=== PATIENT | male | born 1960 | race Caucasian/White ===

== ENCOUNTER → 2017-08-18 11:22 | Outpatient (CLI) | payer MEDICARE, MEDICAID, SELFPAY ==
[2017-08-18 14:52] LABS: Chol/HDL Ratio 9.7 (1-3.5); Cholesterol 224 mg/dL (140-200); HDL Cholesterol 23 mg/dL (27-67)
[2017-08-18 15:17] LABS: Triglycerides 642 mg/dL (30-200)
[2017-08-19 19:10] LABS: Prolactin 17.8 ng/mL (4.0-15.2)
== END ==
PROVIDERS: PCP Internal Medicine Adolescent Medicine; Visit Provider Nurse Practitioner Psychiatric/Mental Health
DX: F39 Unspecified mood [affective] disorder (principal); Z79.899 Other long term (current) drug therapy
CPT/HCPCS: 36415; 80061; 83036; 84146

== ENCOUNTER → 2017-09-06 14:56 | Outpatient (CLI) | payer MEDICARE, MEDICAID, SELFPAY ==
[2017-09-06 16:49] LABS: Amphetamine/Metha Screen,Urine Negative ng/mL (<1000); Barbiturates Screen,Urine Negative ng/mL (<200); Benzodiazepines Screen,Urine Negative ng/mL (200); Cannabinoid Screen,Urine Negative ng/mL (<50); Cocaine Screen,Urine Negative ng/g (<300); Methadone Screen,Urine Negative ng/mL (<300); Opiate Screen,Urine Positive ng/mL (<300); Phencyclidine Screen,Urine Negative ng/mL (<25)
[2017-09-12 11:18] LABS: Codeine Negative (Cutoff=100); Hydrocodone Positive (.); Hydromorphone Positive (.); Morphine Negative (Cutoff=100)
[2017-09-14 11:50] LABS: Opiates Positive (.)
== END ==
PROVIDERS: Visit Provider Anesthesiology
DX: Z79.899 Other long term (current) drug therapy (principal)
CPT/HCPCS: 80305; 80361; 80365; G0480

== ENCOUNTER → 2017-09-25 08:54 | Outpatient (POV) | payer MEDICARE, MEDICAID, SELFPAY ==
[2017-09-25 09:08] VITALS: BP 150/88; PULSE 76; RESP 18; O2SAT 95; BMI 32.4
--- NOTE | 2017-09-25 09:21 | HMH.PAINSOAP ---
[facility] Pain Management SOAP Note Subjective:: This patient is a pleasant 56-year-old white male who we are treating for low back pain with lumbar radiculopathy symptoms. He is currently being managed with [place] 5 mg 3 times a day. He is also taking ibuprofen in addition to this. He is doing well with his pain medication. His back is hurting today however overall he does get good relief. His [place] and urine drug screen are all appropriate. Kaspar #[id number]. We will refill his [place] 5 mg 3 times a day. We will give him 2 months worth of prescriptions. Objective:: Alert and oriented ?3 in no acute distress. Patient does have an antalgic gait. Motor strength of the lower extremities is 5/5. There is no gross sensory deficit. Assessment:: Degenerative disc disease of lumbar spine with lumbar radiculopathy symptoms. Plan:: We will refill his [place] 5 mg's 1 tablet 3 times a day. He is to continue taking ibuprofen in addition to this. I have talked to him about injections. He is on a limited income and cannot afford injections at this time. We will give him 2 months worth of prescriptions. We will see him back in 3 months. He will sisal picker his third month here in the pain clinic.
== END ==
PROVIDERS: Family Provider Internal Medicine Adolescent Medicine; PCP Internal Medicine Adolescent Medicine; Visit Provider Anesthesiology
DX: M54.16 Radiculopathy, lumbar region (principal)
CPT/HCPCS: 99212

== ENCOUNTER → 2017-12-05 09:03 | Outpatient (POV) | payer MEDICARE, MEDICAID, SELFPAY ==
[2017-12-05 09:15] VITALS: BP 137/93; PULSE 72; RESP 18; BMI 32.7
--- NOTE | 2017-12-05 09:28 | P.CONS_ITS ---
[facility] Pain Management SOAP Note Subjective:: Patient is a 57-year-old white male who presents today for medication refills. Patient is currently being medically managed for low back pain secondary to degenerative disc disease of lumbar spine with lumbar radiculopathy symptoms. Patient is currently being managed with [place] 5 mg 1 p.o. 3 times daily. Patient states that it takes the edge off however he does not take all his pain away. Patient has had hip surgery in the past. Patient and I discussed potentially a neurostimulator he is uninterested in this. Patient states he has had injections in the past but he cannot afford them and he does not want them because they do not work anyway. Patient's ABELARDO #[id number] reviewed and appropriate. Patient will be going for UDS today. ROS General: no recent weight change, no fever, no sleep disturbances Respiratory: no cough, no shortness of air, no recurring pulmonary infections Cardiovascular/Peripheral Vascular: No chest pain, No palpitations, no edema, no shortness of breath. Gastrointestinal: no incontinence, normal bowel movements reported Genitourinary: no incontinence Musculoskeletal: Low back and hip pain Psychiatric: normal mood/ affect Neurological: [denies weakness in extremities], [denies balance issues] Objective:: Physical Exam General: Alert and oriented x3, no acute distress, pleasant and cooperative, Lungs: Resps E/U, Symmetrical chest expansion Eyes: PERRL Musculoskeletal: Flexion and extension of lumbar spine somewhat guarded secondary to pain, deep tendon reflexes normal, strength in upper and lower extremities [5/5], slightly antalgic gait noted Neurological: speech clear, 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 3 times daily and give him 2 months worth of prescriptions. He can slat pickler the third prescription in the interim. We will see him back in [address] Carrasco has reviewed this chart and agrees with this plan of care. We will review his UDS and continue to monitor compliance. Patient has been prescribed a controlled substance after being counseled on the medication, medication safety, and possible side effects. ABELARDO report has been obtained and reviewed prior to prescription and found to be appropriate. Opioid contract was reviewed and signed by the patient, and that they have agreed to all of the terms set forth by our compliance program. This note was dictated using voice recognition software and may contain errors or omissions
[2017-12-05 15:31] LABS: Amphetamine/Metha Screen,Urine Negative ng/mL (<1000); Barbiturates Screen,Urine Negative ng/mL (<200); Benzodiazepines Screen,Urine Negative ng/mL (200); Cannabinoid Screen,Urine Negative ng/mL (<50); Cocaine Screen,Urine Negative ng/g (<300); Methadone Screen,Urine Negative ng/mL (<300); Opiate Screen,Urine Positive ng/mL (<300); Phencyclidine Screen,Urine Negative ng/mL (<25)
[2017-12-15 09:16] LABS: Codeine Negative (Cutoff=100); Hydrocodone Positive (.); Hydromorphone Positive (.); Morphine Negative (Cutoff=100)
[2017-12-15 10:27] LABS: Opiates Positive (.)
== END ==
PROVIDERS: Family Provider Internal Medicine Adolescent Medicine; PCP Internal Medicine Adolescent Medicine; Visit Provider Clinical Nurse Specialist Family Health
DX: M54.16 Radiculopathy, lumbar region (principal); Z79.891 Long term (current) use of opiate analgesic
CPT/HCPCS: 80305; 80361; 80365; 99212; G0480

== ENCOUNTER → 2018-03-01 08:59 | Outpatient (CLI) | payer MEDICARE, MEDICAID, SELFPAY ==
[2018-03-01 09:04] LABS: Microscopic, Urine URINE MICROSCOPIC (MICROSCOPIC)
[2018-03-01 09:19] LABS: Appearance,Urine CLEAR (Clear); Bilirubin,Urine Negative (Negative); Blood, Urine Negative (Negative); Color,Urine YELLOW (Yellow); Glucose,Urine (UA) Negative (Negative); Ketones,Urine Negative (Negative); Leukocyte Esterase,Urine Negative (Negative); Nitrate,Urine Negative (Negative); PH,Urine 6.5 (5.0-8.5); Protein,Urine Negative (Negative); Urobilinogen,Urine 0.2 EU/dl (0.2)
[2018-03-01 09:23] LABS: Basophils # 0.1 K/mm3 (0-0.2); Basophils % 1.4 % (0.1-2.0); Eosinophils # 0.4 K/mm3 (0.0-0.4); Eosinophils % 5.9 % (0.1-12.0); Hemoglobin 14.4 g/dL (14.1-18.0); Lymphocytes # 2.2 K/mm3 (0.7-4.5); Lymphocytes % 33.7 K/mm3 (10-50); Mean Corpuscular HGB Conc 34.4 g/dL (31.8-35.4); Mean Corpuscular Hemoglobin 29.8 pg (27.0-31.2); Mean Corpuscular Volume 86.7 fl (80-94); Mean Platelet Volume 7.3 fl (7.4-10.4); Monocytes # 0.4 K/mm3 (0.1-1.0); Neutrophils # 3.4 K/mm3 (1.8-7.8); Neutrophils % 53.1 % (37.0-80.0); Platelet Count 280 K/mm3 (142-424); Red Blood Count 4.84 M/mm3 (4.60-6.20); Red Cell Distribution Width 13.7 % (11.5-17.5); White Blood Count 6.5 K/mm3 (4.8-10.8)
[2018-03-01 09:38] LABS: Bacteria,Urine Trace /lpf; RBC,Urine Occasional #/hpf (0-3); Squamous Epithelial Cell,Urine Occasional #/hpf (0-5)
[2018-03-01 11:30] LABS: Alanine Aminotransferase 110 U/L (12-78); Albumin Level 3.9 gm/dL (3.4-5.0); Albumin/Globulin Ratio 1.2 (1.1-1.8); Alkaline Phosphatase 49 U/L (46-116); Amylase 77 U/L (25-125); Anion Gap 10.1 mEq/L (5-15); Bilirubin,Total 0.5 mg/dL (0.2-1.0); Blood Urea Nitrogen 21 mg/dL (7-18); Calcium 9.1 mg/dL (8.5-10.1); Carbon Dioxide 31 mmol/L (21.0-32.0); Chloride 102 mmol/L (98-107); Creatinine,Serum 1.07 mg/dL (0.70-1.30); Estimated Glomerular Filt Rate 71 ml/min (>60); GFR (African American) 87 ML/MIN (>60); Globulin 3.3 gm/dl (1.3-3.2); Glucose 114 mg/dL (74-106); Lipase 314 u/L (73-393); Sodium 139 mmol/L (136-145); Total Protein,Serum 7.2 gm/dL (6.4-8.2)
--- NOTE | 2018-03-01 12:16 | CT_ITS ---
CT abdomen pelvis wo/w con CLINICAL INDICATION: Left lower quadrant pain, dark stool noted ITS.REASON: LUQ PAIN ORDERING PHYSICIAN: Nando Reddy MD PATIENT AGE: 57 years COMPARISON: None TECHNIQUE: Axial images obtained without and with contrast. Sagittal and coronal reformats. All CT scans at the facility use one or more dose reduction, viz: automated exposure control, ma/kV adjustment per patient size (including targeted exams where dose is matched to indication, i.e. head), or iterative reconstruction technique. PROCEDURE: Oral Contrast: Redicat IV Contrast: 75 mL's of Isovue-370. FINDINGS: Lung bases are clear. There is diffuse fatty liver. No focal liver lesion is evident. The spleen is unremarkable. Adrenal glands and pancreas are unremarkable. There is a small hyperdensity noted within the gallbladder posteriorly may be due to small stone and may be confirmed with ultrasound. No renal or ureteral calculi. No hydronephrosis. There is a 16 mm isodensity along the lower pole the right kidney consistent with renal cyst. There is a small umbilical hernia containing fat. No evidence of appendicitis or diverticulitis. There is diverticulosis of the descending colon. No intestinal obstruction or free air. There is mild fusiform dilatation of the midabdominal aorta in the infrarenal region at 3 cm not significant change. No pelvic mass abnormal fluid collection or focal inflammatory change of the pelvis. Artifact is present from right hip prosthesis. There are degenerative changes in the lumbar spine. There are subcortical sclerotic and cystic changes of the left femoral head suggesting avascular necrosis. IMPRESSION: 1. No acute abdominal or pelvic findings. 2. 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 3. Small focal hernia containing fat. 4. Subcortical sclerotic and cystic changes of the left femoral head suspicious for avascular necrosis.
[2018-03-01 12:38] LABS: Aspartate Amino Transferase 54 U/L (15-37); Potassium 4.1 mmoL/L (3.5-5.1)
[2018-03-02 14:33] LABS: Occult Blood,Stool Positive (Negative)
== END ==
PROVIDERS: Nurse Practitioner Family; Family Provider Internal Medicine Adolescent Medicine; PCP Internal Medicine Adolescent Medicine; Visit Provider Internal Medicine Adolescent Medicine
DX: R10.12 Left upper quadrant pain (principal); R10.32 Left lower quadrant pain; R19.5 Other fecal abnormalities; Z79.1 Long term (current) use of non-steroidal anti-inflammatories (NSAID)
CPT/HCPCS: 36415; 74170; 74178; 80053; 81001; 82150; 82272; 83690; 85025; G0328; Q9967

== ENCOUNTER → 2018-03-05 08:00 | Outpatient (POV) | payer MEDICARE, MEDICAID, SELFPAY ==
[2018-03-05 08:49] VITALS: BP 158/100; PULSE 71; RESP 18; O2SAT 97; BMI 31.9
--- NOTE | 2018-03-05 08:56 | HMH.PAINSOAP ---
[facility] Pain Management SOAP Note Subjective:: Patient is a pleasant 57-year-old white male who presents today for medication refills. Patient's currently being medically managed for lower back pain secondary to degenerative disc disease of the lumbar spine with lumbar radiculopathy symptoms. Patient also has right hip pain. Patient had a replacement done by Dr. Henry. Patient is currently on [place] 5 mg 1 p.o. 3 times daily. Patient states that he has had injections in the past but he cannot afford them and they do not work he is uninterested in this. Patient and I did talk about neuro stimulation he is uninterested at this time he states he is under a lot of stress and does not have the time to do this. Patient has not been on any gabapentin before. Patient states his medication only helps him about 5%. Patient's ABELARDO #[id number] reviewed. Patient has been filling from multiple pharmacies. We will continue to monitor this patient needs to be filling from one pharmacy. Patient rates his pain today an 8 out of 10 he denies any side effects from his medication. ROS General: no recent weight change, no fever, no sleep disturbances Respiratory: no cough, no shortness of air, no recurring pulmonary infections Cardiovascular/Peripheral Vascular: No chest pain, No palpitations, no edema, no shortness of breath. Gastrointestinal: no incontinence, normal bowel movements reported Genitourinary: no incontinence Musculoskeletal: Back pain, leg pain, hip pain Psychiatric: normal mood/ affect Neurological: [denies weakness in extremities], [denies balance issues] Objective:: Physical Exam General: Alert and oriented x3, no acute distress, pleasant and cooperative, [on room air] Lungs: Resps E/U, Symmetrical chest expansion, Eyes: PERRL Musculoskeletal: Flexion and extension of lumbar spine somewhat guarded secondary to pain, deep tendon reflexes normal, strength in upper and lower extremities [5/5], [abnormal gait noted] Neurological: speech clear, loader machine 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 3 times daily and give him 2 months worth of prescriptions. He can roll picker the third prescription in the interim. We will follow up with him in 3 months. We will also add gabapentin 300 mg 1 tab p.o. nightly. Patient has been instructed to call the office if he has any issues prior to his next appointment. Patient's UDS has been appropriate in the past. Abelardo reviewed. Patient has been notified that he can only use one pharmacy. Patient has been prescribed a controlled substance after being counseled on the medication, medication safety, and possible side effects. ABELARDO report has been obtained and reviewed prior to prescription and found to be appropriate. Opioid contract was reviewed and signed by the patient, and that they have agreed to all of the terms set forth by our compliance program. This note was dictated using voice recognition software and may contain errors or omissions
--- NOTE | 2018-03-05 08:59 | P.CONS_ITS ---
[facility] Pain Management SOAP Note Subjective:: Patient is a pleasant 57-year-old white male who presents today for medication refills. Patient's currently being medically managed for lower back pain secondary to degenerative disc disease of the lumbar spine with lumbar radiculopathy symptoms. Patient also has right hip pain. Patient had a replac ement done by Dr. Henry. Patient is currently on [place] 5 mg 1 p.o. 3 times daily. Patient states that he has had injections in the past but he cannot afford them and they do not work he is uninterested in this. Patient and I did talk about neuro stimulation he is uninterested at this time he states he is under a lot of stress and does not have the time to do this. Patient has not been on any gabapentin before. Patient states his medication only helps him about 5%. Patient's ABELARDO #[id number] reviewed. Patient has been filling from multiple pharmacies. We will continue to monitor this patient needs to be filling from one pharmacy. Patient rates his pain today an 8 out of 10 he denies any side effects from his medication. ROS General: no recent weight change, no fever, no sleep disturbances Respiratory: no cough, no shortness of air, no recurring pulmonary infections Cardiovascular/Peripheral Vascular: No chest pain, No palpitations, no edema, no shortness of breath. Gastrointestinal: no incontinence, normal bowel movements reported Genitourinary: no incontinence Musculoskeletal: Back pain, leg pain, hip pain Psychiatric: normal mood/ affect Neurological: [denies weakness in extremities], [denies balance issues] Objective:: Physical Exam General: Alert and oriented x3, no acute distress, pleasant and cooperative, [on room air] Lungs: Resps E/U, Symmetrical chest expansion, Eyes: PERRL Musculoskeletal: Flexion and extension of lumbar spine somewhat guarded secondary to pain, deep tendon reflexes normal, strength in upper and lower extremities [5/5], [abnormal gait noted] Neurological: 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 3 times daily and give him 2 months worth of prescriptions. He can flower buncher or picker the third prescription in the interim. We will follow up with him in 3 months. We will also add gabapentin 300 mg 1 tab p.o. nightly. Patient has been instructed to call the office if he has any issues prior to his next appointment. Patient's UDS has been appropriate in the past. Abelardo reviewed. Patient has been notified that he can only use one pharmacy. Patient has been prescribed a controlled substance after being counseled on the medication, medication safety, and possible side effects. ABELARDO report has been obtained and reviewed prior to prescription and found to be appropriate. Opioid contract was reviewed and signed by the patient, and that they have agreed to all of the terms set forth by our compliance program. This note was dictated using voice recognition software and may contain errors or omissions
== END ==
PROVIDERS: Family Provider Internal Medicine Adolescent Medicine; PCP Internal Medicine Adolescent Medicine; Visit Provider Clinical Nurse Specialist Family Health
DX: M51.16 Intervertebral disc disorders with radiculopathy, lumbar region (principal); M25.559 Pain in unspecified hip
CPT/HCPCS: 99213

== ENCOUNTER → 2018-03-20 11:27 | Outpatient (CLI) | payer MEDICARE, SELFPAY ==
[2018-03-20 11:40] LABS: Hematocrit 37.6 % (42.0-52.0); Hemoglobin 12.8 g/dL (14.1-18.0)
== END ==
PROVIDERS: Family Provider Internal Medicine Adolescent Medicine; PCP Internal Medicine Adolescent Medicine; Visit Provider Surgery
DX: K92.1 Melena (principal); D64.9 Anemia, unspecified
CPT/HCPCS: 36415; 85014; 85018

== ENCOUNTER → 2018-04-17 11:35 | Outpatient (CLI) | payer MEDICARE, SELFPAY ==
[2018-04-17 12:05] LABS: Hematocrit 45.5 % (42.0-52.0)
== END ==
PROVIDERS: Family Provider Internal Medicine Adolescent Medicine; PCP Internal Medicine Adolescent Medicine; Visit Provider Surgery
DX: K21.9 Gastro-esophageal reflux disease without esophagitis (principal)
CPT/HCPCS: 36415; 85014; 85018

== ENCOUNTER → 2018-04-25 08:34 | Outpatient (CLI) | payer MEDICARE, MEDICAID, SELFPAY ==
--- NOTE | 2018-04-25 08:36 | FL_ITS ---
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 Sclerosis is present involving the left femoral head with some subtle subcortical lucency suggesting avascular sclerosis. There are osteoarthritic changes of the left hip. The esophagus, stomach, and duodenum have an unremarkable appearance. There is no evidence of hiatal hernia. No ulcer or mass evident. No mucosal abnormalities apparent. There is normal peristalsis. The duodenal C-loop is nondisplaced. Small bowel has an unremarkable appearance. No mass obstructing lesion or mucosal abnormality evident. Spot views of the terminal ileum are unremarkable. FLUOROSCOPY TIME : 2 minutes and 42 seconds. IMPRESSION: 1. Negative upper GI. 2. Negative small bowel follow-through. 3. Avascular sclerosis of the left hip
== END ==
PROVIDERS: Family Provider Internal Medicine Adolescent Medicine; PCP Internal Medicine Adolescent Medicine; Visit Provider Surgery
DX: K21.9 Gastro-esophageal reflux disease without esophagitis (principal)
CPT/HCPCS: 74245

== ENCOUNTER → 2018-05-07 10:59 | Outpatient (CLI) | payer MEDICARE, SELFPAY ==
[2018-05-07 13:52] LABS: Hematocrit 38.5 % (42.0-52.0)
== END ==
PROVIDERS: PCP Internal Medicine Adolescent Medicine; Visit Provider Surgery
DX: D64.9 Anemia, unspecified (principal); R53.83 Other fatigue
CPT/HCPCS: 36415; 85014; 85018

== ENCOUNTER → 2018-05-09 08:09 | Outpatient (CLI) | payer MEDICARE, SELFPAY ==
[2018-05-09 10:09] LABS: Amphetamine/Metha Screen,Urine Negative ng/mL (<1000); Barbiturates Screen,Urine Negative ng/mL (<200); Benzodiazepines Screen,Urine Negative ng/mL (<200); Cannabinoid Screen,Urine Negative ng/mL (<50); Cocaine Screen,Urine Negative ng/mL (<300); Methadone Screen,Urine Negative ng/mL (<300); Opiate Screen,Urine Positive ng/mL (<300); Phencyclidine Screen,Urine Negative ng/mL (<25)
[2018-05-15 07:15] LABS: Codeine Negative (Cutoff=100); Hydrocodone Positive (.); Hydromorphone Positive (.); Morphine Negative (Cutoff=100)
[2018-05-15 08:23] LABS: Opiates Positive (.)
== END ==
PROVIDERS: Visit Provider Clinical Nurse Specialist Family Health
DX: Z79.899 Other long term (current) drug therapy (principal)
CPT/HCPCS: 80305; 80361; 80365; G0480

== ENCOUNTER → 2018-06-11 08:54 | Outpatient (POV) | payer MEDICARE, MEDICAID, SELFPAY ==
[2018-06-11 09:34] VITALS: BP 117/84; PULSE 84; RESP 18; O2SAT 98; BMI 31.9
--- NOTE | 2018-06-11 10:34 | HMH.PAINSOAP ---
[facility] Pain Management SOAP Note Subjective:: Patient is a pleasant 57-year-old white male who presents today for medication refills. Patient is currently being treated for pain secondary to degenerative disc disease lumbar spine with lumbar radiculopathy symptoms. Patient is also having hip pain. Patient had a replacement done. Patient currently on [place] 5 mg 1 p.o. 3 times daily. Patient does not want to do any injections at this time. Patient is uninterested in any neuro stimulation or other ways of treatment. Patient was started on gabapentin 300 mg 1 p.o. at nighttime and he states that it has helped. He rates his pain today a 5 out of 10. We will increases today. Patient denies side effects. Patient's ABELARDO #[id number] reviewed and appropriate. Patient had a recent drug screen and pill count which were appropriate. ROS General: no recent weight change, no fever, no sleep disturbances Respiratory: no cough, no shortness of air, no recurring pulmonary infections Cardiovascular/Peripheral Vascular: No chest pain, No palpitations, no edema, no shortness of breath. Gastrointestinal: no incontinence, normal bowel movements reported Genitourinary: no incontinence Musculoskeletal: Back pain, leg pain, hip pain Psychiatric: normal mood/ affect Neurological: [denies weakness in extremities], [denies balance issues] Objective:: Physical Exam General: Alert and oriented x3, no acute distress, pleasant and cooperative, [on room air] Lungs: Resps E/U, Symmetrical chest expansion, Eyes: PERRL Musculoskeletal: Flexion and extension of lumbar spine somewhat guarded secondary to pain, deep tendon reflexes normal, strength in upper and lower extremities [5/5], [abnormal gait noted] Neurological: speech clear, electrical wirer equal, no gross sensory deficits Assessment:: Degenerative disc disease lumbar spine with lumbar radiculopathy symptoms and hip pain Plan:: We will refill his [place] 5 mg 1 tab p.o. 3 times daily and give him 2 months worth of prescriptions. We will also increase his gabapentin to 300 mg 1 tab p.o. 3 times daily. Patient will follow-up in 3 months and we will reassess him at that time. Patient can waste picker his third month prescription in the interim. Dr. Carrasco has reviewed this chart and agrees with this plan of care. Patient has been prescribed a controlled substance after being counseled on the medication, medication safety, and possible side effects. ABELARDO report has been obtained and reviewed prior to prescription and found to be appropriate. Opioid contract was reviewed and signed by the patient, and that they have agreed to all of the terms set forth by our compliance program. This note was dictated using voice recognition software and may contain errors or omissions
--- NOTE | 2018-06-11 10:37 | P.CONS_ITS ---
[facility] Pain Management SOAP Note Subjective:: Patient is a pleasant 57-year-old white male who presents today for medication refills. Patient is currently being treated for pain secondary to degenerative disc disease lumbar spine with lumbar radiculopathy symptoms. Patient is also having hip pain. Patient had a replacement done. Patient currently on [place] 5 mg 1 p.o. 3 times daily. Patient does not want to do any injections at this time. Patient is uninterested in any neuro stimulation or other ways of treatment. Patient was started on gabapentin 300 mg 1 p.o. at nighttime and he states that it has helped. He rates his pain today a 5 out of 10. We will increases today. Patient denies side effects. Patient's ABELARDO #[id number] rev iewed and appropriate. Patient had a recent drug screen and pill count which were appropriate. ROS General: no recent weight change, no fever, no sleep disturbances Respiratory: no cough, no shortness of air, no recurring pulmonary infections Cardiovascular/Peripheral Vascular: No chest pain, No palpitations, no edema, no shortness of breath. Gastrointestinal: no incontinence, normal bowel movements reported Genitourinary: no incontinence Musculoskeletal: Back pain, leg pain, hip pain Psychiatric: normal mood/ affect Neurological: [denies weakness in extremities], [denies balance issues] Objective:: Physical Exam General: Alert and oriented x3, no acute distress, pleasant and cooperative, [on room air] Lungs: Resps E/U, Symmetrical chest expansion, Eyes: PERRL Musculoskeletal: Flexion and extension of lumbar spine somewhat guarded secondary to pain, deep tendon reflexes normal, strength in upper and lower extremities [5/5], [abnormal gait noted] Neurological: speech clear, violin teacher equal, no gross sensory deficits Assessment:: Degenerative disc disease lumbar spine with lumbar radiculopathy symptoms and hip pain Plan:: We will refill his [place] 5 mg 1 tab p.o. 3 times daily and give him 2 months worth of prescriptions. We will also increase his gabapentin to 300 mg 1 tab p.o. 3 times daily. Patient will follow-up in 3 months and we will reassess him at that time. Patient can picked edge sewing machine operator his third month prescription in the interim. Dr. Carrasco has reviewed this chart and agrees with this plan of care. Patient has been prescribed a controlled substance after being counseled on the medication, medication safety, and possible side effects. ABELARDO report has been obtained and reviewed prior to prescription and found to be appropriate. Opioid contract was reviewed and signed by the patient, and that they have agreed to all of the terms set forth by our compliance program. This note was dictated using voice recognition software and may contain errors or omissions
== END ==
PROVIDERS: PCP Internal Medicine Adolescent Medicine; Visit Provider Clinical Nurse Specialist Family Health
DX: M51.16 Intervertebral disc disorders with radiculopathy, lumbar region (principal); M25.559 Pain in unspecified hip
CPT/HCPCS: 99213

== ENCOUNTER → 2018-08-07 11:42 | Outpatient (CLI) | payer MEDICARE, SELFPAY ==
[2018-08-07 12:52] LABS: Amphetamine/Metha Screen,Urine Negative ng/mL (<1000); Barbiturates Screen,Urine Negative ng/mL (<200); Benzodiazepines Screen,Urine Negative ng/mL (<200); Cannabinoid Screen,Urine Negative ng/mL (<50); Cocaine Screen,Urine Negative ng/mL (<300); Methadone Screen,Urine Negative ng/mL (<300); Opiate Screen,Urine Positive ng/mL (<300); Phencyclidine Screen,Urine Negative ng/mL (<25)
[2018-08-10 15:13] LABS: Codeine Negative (Cutoff=100); Hydrocodone Positive (.); Hydromorphone Positive (.); Morphine Negative (Cutoff=100)
[2018-08-11 11:57] LABS: Opiates Positive (.)
== END ==
PROVIDERS: Visit Provider Clinical Nurse Specialist Family Health
DX: Z79.899 Other long term (current) drug therapy (principal)
CPT/HCPCS: 80305; 80361; 80365; G0480

== ENCOUNTER → 2018-09-04 09:47 | Outpatient (POV) | payer MEDICARE, MEDICAID, SELFPAY ==
[2018-09-04 10:09] VITALS: BP 153/98; PULSE 80; RESP 18; O2SAT 99; BMI 39.1
--- NOTE | 2018-09-04 10:15 | HMH.PAINSOAP ---
[facility] Pain Management SOAP Note Subjective:: Patient is a pleasant 58-year-old white male who presents today for medication refills. Patient is currently being treated for pain secondary to degenerative disc disease lumbar spine with lumbar radiculopathy. Patient states that in the last 2 weeks his pain has become much worse. He rates his pain 8 out of 10. He is being medically managed with [place] 5 mg 1 p.o. 3 times daily. He denies any injections at this time. Patient's ABELARDO reviewed and appropriate. Drug screen has been appropriate. Patient does not have any recent imaging. Patient states most of his worsening back pain is in the low back going down his left leg. ROS General: no recent weight change, no fever, no sleep disturbances Respiratory: no cough, no shortness of air, no recurring pulmonary infections Cardiovascular/Peripheral Vascular: No chest pain, No palpitations, no edema, no shortness of breath. Gastrointestinal: no incontinence, normal bowel movements reported Genitourinary: no incontinence Musculoskeletal: Back pain, left leg pain Psychiatric: normal mood/ affect Neurological: [denies weakness in extremities], [denies balance issues] Objective:: Physical Exam General: Alert and oriented x3, no acute distress, pleasant and cooperative, [on room air] Lungs: Resps E/U, Symmetrical chest expansion, Eyes: PERRL Musculoskeletal: Flexion and extension of lumbar spine somewhat guarded secondary to pain, deep tendon reflexes normal, strength in upper and lower extremities [5/5], [abnormal gait noted] Neurological: speech clear, 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 3 times daily. We will give him 2 months worth of prescriptions. We will also do prednisone 20 mg 1 p.o. twice daily for 5 days. If patient is still having increased pain after this. We will order an updated MRI. Dr. Carrasco has reviewed this note and agrees with this plan of care. This note was dictated using voice recognition software and may contain errors or omissions
== END ==
PROVIDERS: PCP Internal Medicine Adolescent Medicine; Visit Provider Clinical Nurse Specialist Family Health
DX: M51.16 Intervertebral disc disorders with radiculopathy, lumbar region (principal)
CPT/HCPCS: 99213

== ENCOUNTER → 2018-10-01 14:17 | Outpatient (CLI) | payer MEDICARE, MEDICAID, SELFPAY ==
--- NOTE | 2018-10-01 14:20 | MR_ITS ---
MR lumbar spine wo con, MR 3-d myelogram/MRCP HISTORY: Low back pain X years. RT leg pain and numbness. ITS.REASON: BACK PAIN, HIP PAIN ORDERING PHYSICIAN: Smiley Murillo PATIENT AGE: 58 years Comparison: MR 02/05/15. X-RAY 12/17/06. TECHNIQUE: Standard multiplanar multiecho sequences are performed without contrast. 3-D MIP and myelographic images are also rendered and reviewed FINDINGS: There is normal alignment. The spinal cord in the T12-L1 level. T11-T12 and T12-L1 have an unremarkable appearance. L1-L2: Unremarkable. L2-L3: There is a broad-based right paracentral disc protrusion causing mild anterior compression upon the thecal sac and right lateral recess narrowing. This is slightly more prominent than when compared to the previous exam. There is a broad-based left paracentral lateral disc protrusion causing moderate left foraminal narrowing which appears slightly more prominent. There is an annular fissure in this part of the disc. L3-L4: Unremarkable. L4-L5: There is a small concentric bulging disc and there is a small left paracentral disc protrusion which abuts the anterior and left aspect of the thecal sac causing left lateral recess narrowing and abutting the anterior aspect of the left L5 nerve root. This appears somewhat more lateralizing to the left than when compared to the previous exam. L5-S1: Concentric bulging disc. There is a small central disc herniation with minimal inferior extrusion which is slightly larger than when compared to the previous exam. There is slightly eccentric toward the left. This however is not compressing upon the S1 nerve roots. There is mild facet hypertrophic change and moderate bilateral foraminal narrowing. Incidental note is made of right renal cyst and 19 mm. IMPRESSION: 1. There is a broad-based right paracentral disc protrusion at L2-L3 causing mild anterior compression upon the thecal sac and right lateral recess narrowing. This is slightly more prominent than when compared to the previous exam. There is a broad-based left paracentral lateral disc protrusion causing moderate left foraminal narrowing which appears slightly more prominent. There is an annular fissure in this part of the disc. 2. There is a small concentric bulging disc and L4-L5 and there is a small left paracentral disc protrusion which abuts the anterior and left aspect of the thecal sac causing left lateral recess narrowing and abutting the anterior aspect of the left L5 nerve root. This appears somewhat more lateralizing to the left than when compared to the previous exam. 3. Concentric bulging disc at L5-S1 with a small central disc herniation with minimal inferior extrusion which is slightly larger than when compared to the previous exam. There is slightly eccentric toward the left. This however is not compressing upon the S1 nerve roots. There is mild facet hypertrophic change and moderate bilateral foraminal narrowing.
== END ==
PROVIDERS: Visit Provider Clinical Nurse Specialist Family Health
DX: M54.5 Low back pain (principal)
CPT/HCPCS: 72148; 76376

== ENCOUNTER → 2018-10-08 08:10 | Outpatient (POV) | payer MEDICARE, MEDICAID, SELFPAY ==
--- NOTE | 2018-10-08 08:40 | HMH.PAINSOAP ---
[facility] Pain Management SOAP Note Subjective:: Patient is a 58-year-old white male who presents today for follow-up after recent MRI. Patient does have worsening degeneration along with disc bulge. He does have an L4-L5 protrusion abutting the thecal sac. Patient states he seen a surgeon in our office however we do not have any surgeons. I suggested seeing a surgeon. I also suggested epidural injections. Patient states he cannot afford epidural injections. He is asking for more narcotic medication today. We will not be increasing his narcotic medication. Patient and I did discuss potentially some anti-inflammatories. He rates his pain a 9 out of 10. ROS General: no recent weight change, no fever, no sleep disturbances Respiratory: no cough, no shortness of air, no recurring pulmonary infections Cardiovascular/Peripheral Vascular: No chest pain, No palpitations, no edema, no shortness of breath. Gastrointestinal: no incontinence, normal bowel movements reported Genitourinary: no incontinence Musculoskeletal: Back pain, right leg pain Psychiatric: normal mood/ affect Neurological: [denies weakness in extremities], [denies balance issues] Objective:: Physical Exam General: Alert and oriented x3, no acute distress, pleasant and cooperative, [on room air] Lungs: Resps E/U, Symmetrical chest expansion, Eyes: PERRL Musculoskeletal: Flexion and extension of lumbar spine somewhat guarded secondary to pain, deep tendon reflexes normal, strength in upper and lower extremities [5/5], [abnormal gait noted] Neurological: speech clear, loss prevention and safety manager equal, no gross sensory deficits Assessment:: Degenerative disc disease lumbar spine with lumbar radiculopathy and bulging disc Plan:: Patient is asking for more narcotic medication today. I discussed with him that we will not increase his narcotic medication. There are other measures in order to help control his pain however he states that it is cost prohibitive for him at this time. We will have him seen by surgeon for a consultation. Will call in diclofenac 75 mg 1 p.o. twice daily. I will follow-up with the patient at his regular visit. Dr. Carrasco has reviewed this note and agrees with this plan of care. This note was dictated using voice recognition software and may contain errors or omissions
[2018-10-08 08:43] VITALS: BP 127/92; PULSE 114; RESP 18; O2SAT 98; BMI 33.4
== END ==
PROVIDERS: PCP Internal Medicine Adolescent Medicine; Visit Provider Clinical Nurse Specialist Family Health
DX: M51.16 Intervertebral disc disorders with radiculopathy, lumbar region (principal)
CPT/HCPCS: 99212

== ENCOUNTER → 2018-10-16 11:06 | Outpatient (CLI) | payer MEDICARE, MEDICAID, SELFPAY ==
--- NOTE | 2018-10-16 11:11 | XR_ITS ---
XR foot LT min 3V HISTORY: ITS.REASON: LT FOOT PAIN ORDERING PHYSICIAN: Nando Reddy MD PATIENT AGE: 58 years COMPARISON: None FINDINGS: There are mild osteoarthritic changes of the first metatarsophalangeal joint. A separate well-circumscribed calcific density is present at the base and lateral aspect of the proximal phalanx of the great toe with some associated sclerosis of the proximal phalanx. This is consistent with a chronic finding. No acute fracture or dislocation is evident. There is some mild bridging along the dorsal aspect of the cuneiforms. Small calcaneal spur is noted. IMPRESSION: 1. No acute finding. 2. Chronic changes with mild osteoarthritis of the first metatarsophalangeal joint and mild osteophyte formation along the midfoot dorsally
== END ==
PROVIDERS: PCP Internal Medicine Adolescent Medicine; Visit Provider Internal Medicine Adolescent Medicine
DX: M79.672 Pain in left foot (principal)
CPT/HCPCS: 73630

== ENCOUNTER → 2018-11-22 13:52 | Outpatient (POV) | payer MEDICARE, SELFPAY | PROVIDERS: Visit Provider Neurological Surgery | DX: Z00.00 Encounter for general adult medical examination without abnormal findings (principal) ==

== ENCOUNTER → 2018-12-04 09:37 | Outpatient (POV) | payer MEDICARE, MEDICAID, SELFPAY ==
[2018-12-04 09:45] VITALS: BP 136/83; PULSE 79; RESP 18; O2SAT 98; BMI 32.8
--- NOTE | 2018-12-04 09:55 | P.CONS_ITS ---
[facility] Pain Management SOAP Note Subjective:: Patient is a 58-year-old white male who presents today for follow-up. Patient states he has worsening pain and states my doctor said that you would go up on my pain medication . Patient was ensured that we would not be doing this. Patient has been given multiple options for interventional means of therapy and he is uninterested in them. Patient states he does not have time for that . Patient is currently on Pettibone 5 1 p.o. 3 times daily. He states that it is not as helpful as it was. Patient also states that his diclofenac did not work. I encouraged him to stop taking it if it was not helpful. He rates his pain today an 8 out of 10. ROS General: no recent weight change, no fever, no sleep disturbances Respiratory: no cough, no shortness of air, no recurring pulmonary infections Cardiovascular/Peripheral Vascular: No chest pain, No palpitations, no edema, no shortness of breath. Gastrointestinal: no incontinence, normal bowel movements reported Genitourinary: no incontinence Musculoskeletal: Back pain, leg pain Psychiatric: normal mood/ affect, , Neurological: [denies weakness in extremities], [denies balance issues] Objective:: Physical Exam General: Alert and oriented x3, no acute distress, pleasant and cooperative, [on room air] Lungs: Resps E/U, Symmetrical chest expansion, Eyes: PERRL Musculoskeletal: Flexion and extension of lumbar spine somewhat guarded secondary to pain, deep tendon reflexes normal, strength in upper and lower extremities [5/5], antalgic gait noted Neurological: speech clear, cutting and boning supervisor equal, no gross sensory deficits Assessment:: Degenerative disc disease lumbar spine with lumbar radiculopathy and bulging disc Plan:: At this point we are approaching the limited options for this patient. We will not be increasing any of his narcotic medications. We discussed with him that we do not even write narcotic medications anymore. Patient is uninterested in a neurostimulator he is also uninterested in any kind of interventional means of therapy. Patient did state that his family members are addicted to drugs. This is a concern to me. We will continue to pill count him to help ensure compliance. We will refill his Pettibone 5 mg 1 p.o. 3 times daily and give him 2 months worth of prescriptions. He can follow-up in 3 months and pick the third month up in the interim. Patient has been prescribed a controlled substance after being counseled on the medication, medication safety, and possible side effects. ABELARDO report has been obtained and reviewed prior to prescription and found to be appropriate. Opioid contract was reviewed and signed by the patient, and that they have agreed to all of the terms set forth by our compliance program. Dr. Carrasco has reviewed this note and agrees with this plan of care. This note was dictated using voice recognition software and may contain errors or omissions
[2018-12-04 10:46] LABS: Amphetamine/Metha Screen,Urine Negative ng/mL (<1000); Barbiturates Screen,Urine Negative ng/mL (<200); Benzodiazepines Screen,Urine Negative ng/mL (<200); Cannabinoid Screen,Urine Negative ng/mL (<50); Cocaine Screen,Urine Negative ng/mL (<300); Methadone Screen,Urine Negative ng/mL (<300); Opiate Screen,Urine Positive ng/mL (<300); Phencyclidine Screen,Urine Negative ng/mL (<25)
[2018-12-09 12:07] LABS: Codeine Negative (Cutoff=100); Hydrocodone Positive (.); Hydromorphone Positive (.); Morphine Negative (Cutoff=100)
[2018-12-09 17:08] LABS: Opiates Positive (.)
== END ==
PROVIDERS: PCP Internal Medicine Adolescent Medicine; Visit Provider Clinical Nurse Specialist Family Health
DX: M51.16 Intervertebral disc disorders with radiculopathy, lumbar region (principal); Z79.899 Other long term (current) drug therapy
CPT/HCPCS: 80305; 80361; 80365; 99212; G0480

== ENCOUNTER → 2018-12-31 09:09 | Outpatient (POV) | payer MEDICARE, SELFPAY ==
[2018-12-31 09:34] VITALS: BP 129/86; PULSE 78; RESP 18; O2SAT 98; BMI 32.8
--- NOTE | 2018-12-31 10:21 | HMH.PAINSOAP ---
[facility] Pain Management SOAP Note Subjective:: Patient is a pleasant 58-year-old white male who presents today for follow-up. He is being treated for low back pain with neuropathy symptoms. He says that the Dequincy only takes the edge off of the pain. He would like to, however, continue his Dequincy. The patient is not interested in a spinal cord stimulator at this time or any injections. Patient states that he does not have time for things like that, that he is currently taking care of his grandkids. ROS General: no recent weight change, no fever, no sleep disturbances Respiratory: no cough, no shortness of air, no recurring pulmonary infections Cardiovascular/Peripheral Vascular: No chest pain, No palpitations, no edema, no shortness of breath. Gastrointestinal: no incontinence, normal bowel movements reported Genitourinary: no incontinence Musculoskeletal: Low back pain Psychiatric: normal mood/ affect, [denies depression], [denies anxiety] Neurological: [denies weakness in extremities], [denies balance issues] Objective:: Physical Exam General: Alert and oriented x3, no acute distress, pleasant and cooperative, [on room air] Lungs: Resps E/U, Symmetrical chest expansion, Eyes: PERRL Musculoskeletal: Flexion and extension of lumbar spine somewhat guarded secondary to pain, deep tendon reflexes normal, strength in upper and lower extremities, normal gait noted Neurological: speech clear, printed circuit boards contact printer equal, no gross sensory deficits Assessment:: Degenerative disc disease lumbar spine with lumbar radiculopathy and bulging disc Plan:: We will continue the patient's Dequincy 10 mg 1 p.o. 3 times daily. We will also continue the patient's gabapentin 300 mg 1 p.o. at bedtime. We will give the patient 2 months worth of prescriptions and can apple picker the third month in interim. We will follow up with him in three months. He has been instructed to call the office if he has any concerns prior to his next appointment. Patient has been prescribed a controlled substance after being counseled on the medication, medication safety, and possible side effects. ABELARDO report has been obtained and reviewed prior to prescription and found to be appropriate. Opioid contract was reviewed and signed by the patient, and that they have agreed to all of the terms set forth by our compliance program.
--- NOTE | 2018-12-31 10:24 | P.CONS_ITS ---
[facility] Pain Management SOAP Note Subjective:: Patient is a pleasant 58-year-old white male who presents today for follow-up. He is being treated for low back pain with neuropathy symptoms. He says that the Bedford only takes the edge off of the pain. He would like to, however, continue his Bedford. The patient is not interested in a spinal cord stimulator at this time or any injections. Patient states that he does not have time for things like that, that he is currently taking care of his grandkids. ROS General: no recent weight change, no fever, no sleep disturbances Respiratory: no cough, no shortness of air, no recurring pulmonary infections Cardiovascular/Peripheral Vascular: No chest pain, No palpitations, no edema, no shortness of breath. Gastrointestinal: no incontinence, normal bowel movements reported Genitourinary: no incontinence Musculoskeletal: Low back pain Psychiatric: normal mood/ affect, [denies depression], [denies anxiety] Neurological: [denies weakness in extremities], [denies balance issues] Objective:: Physical Exam General: Alert and oriented x3, no acute distress, pleasant and cooperative, [on room air] Lungs: Resps E/U, Symmetrical chest expansion, Eyes: PERRL Musculoskeletal: Flexion and extension of lumbar spine somewhat guarded secondary to pain, deep tendon reflexes normal, strength in upper and lower extremities, normal gait noted Neurological: speech clear, meter repairer helper equal, no gross sensory deficits Assessment:: Degenerative disc disease lumbar spine with lumbar radiculopathy and bulging disc Plan:: We will continue the patient's Bedford 10 mg 1 p.o. 3 times daily. We will also continue the patient's gabapentin 300 mg 1 p.o. at bedtime. We will give the patient 2 months worth of prescriptions and can fruit or nut picker the third month in interim. We will follow up with him in three months. He has been instructed to call the office if he has any concerns prior to his next appointment. Patient has been prescribed a controlled substance after being counseled on the medication, medication safety, and possible side effects. ABELARDO report has been obtained and reviewed prior to prescription and found to be appropriate. Opioid contract was reviewed and signed by the patient, and that they have agreed to all of the terms set forth by our compliance program.
== END ==
PROVIDERS: PCP Internal Medicine Adolescent Medicine; Visit Provider Clinical Nurse Specialist Family Health
DX: M51.16 Intervertebral disc disorders with radiculopathy, lumbar region (principal)
CPT/HCPCS: 99212

== ENCOUNTER → 2019-03-04 08:55 | Outpatient (POV) | payer MEDICARE, SELFPAY ==
[2019-03-04 09:05] VITALS: BP 149/91; PULSE 64; RESP 18; O2SAT 98; BMI 31.9
--- NOTE | 2019-03-04 09:28 | HMH.PAINSOAP ---
[facility] Pain Management SOAP Note Subjective:: Patient is a pleasant 58-year-old white male who presents today for follow-up. He is being treated for pain secondary to degenerative disc disease lumbar spine with lumbar radiculopathy. He rates his pain 8 out of 10 he is currently on [place] 5 mg 1 p.o. 3 times daily. He denies side effects to his medication. Abelardo #[id number] reviewed and appropriate. Urine drug screens have been appropriate. He is raising his 4-year-old and 10-year-old at this time he also has multiple grandchildren he takes care of. ROS General: no recent weight change, no fever, no sleep disturbances Respiratory: no cough, no shortness of air, no recurring pulmonary infections Cardiovascular/Peripheral Vascular: No chest pain, No palpitations, no edema, no shortness of breath. Gastrointestinal: no incontinence, normal bowel movements reported Genitourinary: no incontinence Musculoskeletal: Back pain Psychiatric: normal mood/ affect Neurological: [denies weakness in extremities], [denies balance issues] Objective:: Physical Exam General: Alert and oriented x3, no acute distress, pleasant and cooperative, [on room air] Lungs: Resps E/U, Symmetrical chest expansion, Eyes: PERRL Musculoskeletal: Flexion and extension of lumbar spine somewhat guarded secondary to pain, deep tendon reflexes normal, strength in upper and lower extremities [5/5], [abnormal gait noted] Neurological: speech clear, top lift nailer equal, no gross sensory deficits Assessment:: Degenerative disc disease lumbar spine with lumbar radiculopathy Plan:: We will refill his [place] 5 mg 1 p.o. 3 times daily and give him 2 months worth of medication and we will see him back in 3 months. He can pickling solution maker the third month in the interim. Patient's been instructed to call the office if he has any issues prior to his next appointment. Patient has been prescribed a controlled substance after being counseled on the medication, medication safety, and possible side effects. ABELARDO report has been obtained and reviewed prior to prescription and found to be appropriate. Opioid contract was reviewed and signed by the patient, and that they have agreed to all of the terms set forth by our compliance program. Dr. Carrasco has reviewed this note and agrees with this plan of care. This note was dictated using voice recognition software and may contain errors or omissions Pain Management Hx Components *Have you ever received a pneumonia vaccine?: No *Have you received a flu vaccine this season?: No - *Social History *Occupational Status:: other *Travel in the last 8 weeks: None
--- NOTE | 2019-03-04 09:31 | P.CONS_ITS ---
[facility] Pain Management SOAP Note Subjective:: Patient is a pleasant 58-year-old white male who presents today for follow-up. He is being treated for pain secondary to degenerative disc disease lumbar spine with lumbar radiculopathy. He rates his pain 8 out of 10 he is currently on [place] 5 mg 1 p.o. 3 times daily. He denies side effects to his medication. Abelardo #[id number] reviewed and appropriate. Urine drug screens have been appropriate. He is raising his 4-year-old and 10-year-old at this time he also has multiple grandchildren he takes care of. ROS General: no recent weight change, no fever, no sleep disturbances Respiratory: no cough, no shortness of air, no recurring pulmonary infections Cardiovascular/Peripheral Vascular: No chest pain, No palpitations, no edema, no shortness of breath. Gastrointestinal: no incontinence, normal bowel movements reported Genitourinary: no incontinence Musculoskeletal: Back pain Psychiatric: normal mood/ affect Neurological: [denies weakness in extremities], [denies balance issues] Objective:: Physical Exam General: Alert and oriented x3, no acute distress, pleasant and cooperative, [on room air] Lungs: Resps E/U, Symmetrical chest expansion, Eyes: PERRL Musculoskeletal: Flexion and extension of lumbar spine somewhat guarded secondary to pain, deep tendon reflexes normal, strength in upper and lower extremities [5/5], [abnormal gait noted] Neurological: speech clear, economics analyst equal, no gross sensory deficits Assessment:: Degenerative disc disease lumbar spine with lumbar radiculopathy Plan:: We will refill his [place] 5 mg 1 p.o. 3 times daily and give him 2 months worth of medication and we will see him back in 3 months. He can pickling drum operator the third month in the interim. Patient's been instructed to call the office if he has any issues prior to his next appointment. Patient has been prescribed a controlled substance after being counseled on the medication, medication safety, and possible side effects. ABELARDO report has been obtained and reviewed prior to prescription and found to be appropriate. Opioid contract was reviewed and signed by the patient, and that they have agreed to all of the terms set forth by our compliance program. Dr. Carrasco has reviewed this note and agrees with this plan of care. This note was dictated using voice recognition software and may contain errors or omissions Pain Management Hx Components *Have you ever received a pneumonia vaccine?: No *Have you received a flu vaccine this season?: No - *Social History *Occupational Status:: other *Travel in the last 8 weeks: None
== END ==
PROVIDERS: PCP Internal Medicine Adolescent Medicine; Visit Provider Clinical Nurse Specialist Family Health
DX: M51.16 Intervertebral disc disorders with radiculopathy, lumbar region (principal)
CPT/HCPCS: 99212

== ENCOUNTER → 2019-05-07 09:17 | Outpatient (CLI) | payer MEDICARE, MEDICAID, SELFPAY ==
[2019-05-07 11:52] LABS: Amphetamine/Metha Screen,Urine Negative ng/mL (<1000); Barbiturates Screen,Urine Negative ng/mL (<200); Benzodiazepines Screen,Urine Negative ng/mL (<200); Cannabinoid Screen,Urine Negative ng/mL (<50); Cocaine Screen,Urine Negative ng/mL (<300); Methadone Screen,Urine Negative ng/mL (<300); Opiate Screen,Urine Positive ng/mL (<300); Phencyclidine Screen,Urine Negative ng/mL (<25)
[2019-05-11 12:12] LABS: Codeine Negative (Cutoff=100); Hydrocodone Positive (.); Hydromorphone Positive (.); Morphine Negative (Cutoff=100); Oxycodone (GC/MS) 202 ng/mL (Cutoff=100)
[2019-05-11 18:47] LABS: Opiates Positive (.); Oxymorphone (GC/MS) 429 ng/mL (Cutoff=100)
== END ==
PROVIDERS: Visit Provider Clinical Nurse Specialist Family Health
DX: Z79.899 Other long term (current) drug therapy (principal)
CPT/HCPCS: 80305; 80361; 80365; G0480

== ENCOUNTER → 2019-05-27 08:46 | Outpatient (POV) | payer MEDICARE, SELFPAY ==
[2019-05-27 08:55] VITALS: BP 171/89; PULSE 75; RESP 18; O2SAT 99; BMI 32.7
--- NOTE | 2019-05-27 13:06 | HMH.PAINSOAP ---
[facility] Pain Management SOAP Note Subjective:: Patient is a 58-year-old white male who presents today for medication refills. Patient picked up 1/3-month interim prescription and sent was sent for a drug screen at that time. He had confirmed oxycodone in his system along with his [place] that is prescribed to him. When I discussed this with the patient he states he is been taking a friend's Percocet. Patient rates his pain 8 out of 10. Patient just states that he would take his Richmond quickly and it would be all gone by the end of the day and he needed additional medication to help alleviate pain. I discussed with him that this is a breech of contract and I encouraged him to look into medication management at other pain clinics. Patient is uninterested in injective therapy at this time. Abelardo #[id number] reviewed. ROS General: no recent weight change, no fever, no sleep disturbances Respiratory: no cough, no shortness of air, no recurring pulmonary infections Cardiovascular/Peripheral Vascular: No chest pain, No palpitations, no edema, no shortness of breath. Gastrointestinal: no new onset incontinence, normal bowel movements reported Genitourinary: no new onset incontinence Musculoskeletal: Back pain, leg pain Psychiatric: normal mood/ affect Neurological: [denies new onset weakness in extremities], [denies new onset balance issues] Objective:: Physical Exam General: Alert and oriented x3, no acute distress, pleasant and cooperative, [on room air] Lungs: Resps E/U, Symmetrical chest expansion, Eyes: PERRL Musculoskeletal: Flexion and extension of lumbar spine somewhat guarded secondary to pain, deep tendon reflexes normal, strength in upper and lower extremities [5/5], [abnormal gait noted] Neurological: speech clear, slasher hand equal, no gross sensory deficits Assessment:: Degenerative disc disease lumbar spine with lumbar radiculopathy Plan:: After speaking with Dr. Carrasco the only option we have at this time is to give him 1 month of medication to allow him to find treatment elsewhere. He is welcome to stay for injective therapy. We will give him a discharge letter today. If he has any further questions or if his primary care physician is questions I be happy to answer them. Patient has been prescribed a controlled substance after being counseled on the medication, medication safety, and possible side effects. ABELARDO report has been obtained and reviewed prior to prescription and found to be appropriate. Opioid contract was reviewed and signed by the patient, and that they have agreed to all of the terms set forth by our compliance program. Dr. Carrasco has reviewed this note and agrees with this plan of care. This note was dictated using voice recognition software and may contain errors or omissions [facility] History I have reviewed the patient's past medical history: Yes Medical History: Reports:: Asthma, Hyperlipidemia, Hypertension Denies:: Diabetes Mellitus Type 1, Diabetes Mellitus Type 2, Internal Pacemaker, Lung Disease, Seizures *Have you ever received a pneumonia vaccine?: No *Have you received a flu vaccine this season?: No Other Medical History: Reports: Hypothyroidism Laterality Cases: Right: Arthroscopy Hip, Arthroscopy Shoulder Other Surgeries: Yes: Colonoscopy, EGD, Thyroidectomy. No: Pacemaker - *Social History Smoking Status: Never smoker Alcohol Intake: never Substance Use Type: denies use *Occupational Status:: other *Travel in the last 8 weeks: None Family Hx:: No significant family history
--- NOTE | 2019-05-27 13:09 | P.CONS_ITS ---
[facility] Pain Management SOAP Note Subjective:: Patient is a 58-year-old white male who presents today for medication refills. Patient picked up 1/3-month interim prescription and sent was sent for a drug screen at that time. He had confirmed oxycodone in his system along with his Shelby that is prescribed to him. When I discussed this with the patient he states he is been taking a friend's Percocet. Patient rates his pain 8 out of 10. Patient just states that he would take his Shelby quickly and it would be all gone by the end of the day and he needed additional medication to help alleviate pain. I discussed with him that this is a breech of contract and I encouraged him to look into medication management at other pain clinics. George resendez is uninterested in injective therapy at this time. Iglesia #[id number] reviewed. ROS General: no recent weight change, no fever, no sleep disturbances Respiratory: no cough, no shortness of air, no recurring pulmonary infections Cardiovascular/Peripheral Vascular: No chest pain, No palpitations, no edema, no shortness of breath. Gastrointestinal: no new onset incontinence, normal bowel movements reported Genitourinary: no new onset incontinence Musculoskeletal: Back pain, leg pain Psychiatric: normal mood/ affect Neurological: [denies new onset weakness in extremities], [denies new onset balance issues] Objective:: Physical Exam General: Alert and oriented x3, no acute distress, pleasant and cooperative, [on room air] Lungs: Resps E/U, Symmetrical chest expansion, Eyes: PERRL Musculoskeletal: Flexion and extension of lumbar spine somewhat guarded secondary to pain, deep tendon reflexes normal, strength in upper and lower extremities [5/5], [abnormal gait noted] Neurological: speech clear, binder and box builder equal, no gross sensory deficits Assessment:: Degenerative disc disease lumbar spine with lumbar radiculopathy Plan:: After speaking with Dr. Carrasco the only option we have at this time is to give him 1 month of medication to allow him to find treatment elsewhere. He is welcome to stay for injective therapy. We will give him a discharge letter today. If he has any further questions or if his primary care physician is questions I be happy to answer them. Patient has been prescribed a controlled substance after being counseled on the medication, medication safety, and possible side effects. IGLESIA report has been obtained and reviewed prior to prescription and found to be appropriate. Opioid contract was reviewed and signed by the patient, and that they have agreed to all of the terms set forth by our compliance program. Dr. Carrasco has reviewed this note and agrees with this plan of care. This note was dictated using voice recognition software and may contain errors or omissions [facility] History I have reviewed the patient's past medical history: Yes Medical History: Reports:: Asthma, Hyperlipidemia, Hypertension Denies:: Diabetes Mellitus Type 1, Diabetes Mellitus Type 2, Internal Pacemaker, Lung Disease, Seizures *Have you ever received a pneumonia vaccine?: No *Have you received a flu vaccine this season?: No Other Medical History: Reports: Hypothyroidism Laterality Cases: Right: Arthroscopy Hip, Arthroscopy Shoulder Other Surgeries: Yes: Colonoscopy, EGD, Thyroidectomy. No: Pacemaker - *Social History Smoking Status: Never smoker Alcohol Intake: never Substance Use Type: denies use *Occupational Status:: other *Travel in the last 8 weeks: None Family Hx:: No significant family history
== END ==
PROVIDERS: PCP Internal Medicine Adolescent Medicine; Visit Provider Clinical Nurse Specialist Family Health
DX: M51.16 Intervertebral disc disorders with radiculopathy, lumbar region (principal)
CPT/HCPCS: 99212

== ENCOUNTER → 2019-07-22 13:26 | Outpatient (CLI) | payer MEDICARE, MEDICAID, SELFPAY ==
--- NOTE | 2019-07-22 13:36 | CT_ITS ---
PROCEDURE: CT SOFT TISSUE NECK WO/W CON CLINICAL HISTORY: TONSILLAR HYPERTROPHY Left tonsillar hypertrophy, left-sided neck and facial pain COMPARISON: No exams were available for comparison TECHNIQUE: Oral Contrast: None IV Contrast: 75 mL Optiray 350 Axial images obtained with sagittal and coronal reformats. All CT scans at the facility use one or more dose reduction, viz: automated exposure control, ma/kV adjustment per patient size (including targeted exams where dose is matched to indication, i.e. head), or iterative reconstruction technique. FINDINGS: There is mild hypertrophy of Waldeyer's ring and bilateral palatine tonsils. No obvious tonsillar abscess. The epiglottis has an unremarkable appearance. There are punctate calcifications within the tonsils consistent with tonsillar crypts. The uvula is slightly prominent. There is mild prominence of the parapharyngeal mucosa. There is mild thickening of the right area epiglottic fold.. A small calcific density is present in the right piriform sinus with partial obliteration of the piriform sinus. No enhancing mucosal lesions are evident. No enhancing masses. No lesions evident in the upper chest. No adenopathy evident. There is a small right paratracheal lymph node. IMPRESSION: 1. Mild generalized lymphoid hyperplasia. 2. Small thickening of the right area epiglottic fold with calcific density in this region with some obliteration of the right piriform sinus. This is nonspecific and could be related to nondistention. Consider direct visualization to exclude underlying lesion at this area. Dictated by: Nnamdi Dickerson MD 07/23/2019 12:10 Electronically signed by Nnamdi Dickerson MD in [place] 07/23/2019 12:10
--- NOTE | 2019-07-22 13:36 | CT_ITS ---
PROCEDURE: CT MASTOID W/O CLINICAL HISTORY: MASTOIDITIS Left-sided facial pain, tonsillar hypertrophy COMPARISON: No exams were available for comparison TECHNIQUE: Axial images obtained with sagittal and coronal reformats. All CT scans at the facility use one or more dose reduction, viz: automated exposure control, ma/kV adjustment per patient size (including targeted exams where dose is matched to indication, i.e. head), or iterative reconstruction technique. FINDINGS: There is near complete opacification of the left mastoid air cells. The AP 10 riley and is not opacified. There is no evidence of scutal erosion. The ossicles have an unremarkable appearance. There is mild rightward nasal septal deviation with mild mucosal thickening of the left maxillary sinus and the ethmoid sinuses. The frontal and sphenoid sinuses have an unremarkable appearance. Unremarkable appearing orbits. The TMJs have an unremarkable appearance. The ostiomeatal complexes are occluded bilaterally. IMPRESSION: 1. Left mastoid sinus disease. No evidence of epitympanic opacification or scutal erosion. The middle ear does not appear opacified. 2. Mild paranasal sinus disease with rightward nasal septal deviation Dictated by: Nnamdi Dickerson MD 07/23/2019 11:50 Electronically signed by Nnamdi Dickerson MD in [place] 07/23/2019 11:50
[2019-07-22 14:06] LABS: Blood Urea Nitrogen 11 mg/dL (7-18); Creatinine,Serum 0.94 mg/dL (0.70-1.30); Estimated Glomerular Filt Rate 83 ml/min (>60); GFR (African American) 100 ML/MIN (>60)
== END ==
PROVIDERS: PCP Internal Medicine Adolescent Medicine; Visit Provider Internal Medicine Adolescent Medicine
DX: J35.1 Hypertrophy of tonsils (principal); H70.92 Unspecified mastoiditis, left ear
CPT/HCPCS: 36415; 70486; 70492; 82565; 84520; Q9967

== ENCOUNTER 2020-01-18 17:28 | Emergency (ER) | payer MEDICARE, MEDICAID, SELFPAY ==
[2020-01-18 17:44] VITALS: BP 155/98; PULSE 78; RESP 20; TEMP 36.7; O2SAT 96; BMI 32.5
--- NOTE | 2020-01-18 17:51 | HMH.EDUTC ---
[facility] Disposition Clinical Impression: Cellulitis Qualifiers: Site of cellulitis: unspecified site Qualified Code(s): L03.90 - Cellulitis, unspecified Disposition: Home, Self-Care Condition on Discharge: Good Instructions: Cellulitis, Cephalexin, DI for Cellulitis -- Adult Additional Instructions: Keep area clean and dry *Take medication as prescribed *Follow up with Family Doctor if no improvement or any worsening of symptoms Return if needed Straight to ER if any life threatening symptoms Prescriptions: cephALEXin [Keflex 500mg Cap] 500 mg PO Q6H 5 Days #20 cap Transmission Status: Pending to [facility] Referrals: Nando Reddy MD [Primary Care Provider] - As needed Time of Disposition: 18:02 Medical Decision Making - Iglesia Inquiry Pt receiving controlled substance: No Iglesia was queried for this patient: No Vital Signs: 01/18/20 17:44 Temperature 98.1 F Temperature Source Oral Pulse Rate [Right Brachial] 78 Respiratory Rate 20 Blood Pressure [Right Arm] 155/98 H Blood Pressure Mean [Right Arm] 117 Blood Pressure Source [Right Arm] Automatic Cuff Blood Pressure Position [Right Arm] Sitting 02 Sat by Pulse Oximetry 96 Oxygen Delivery Method Room Air [facility] HPI - General Stated complaint: b/l under arm swelling Time Seen by Provider: 01/18/20 17:51 Mode of Arrival: Ambulatory Source of Information: Patient Limitations: No Limitations Description of Symptoms (Recalled from Triage Doc. by RN): PATIENT C/O SWELLING UNDER BILATERAL ARMS WITH PAIN UNDER THE LEFT ARM X 1 MONTH, HOWEVER IT HAS GOTTEN WORSE OVER THE PAST FEW DAYS HEENT Symptoms (Recalled from RN notes): No Resp Symptoms (Recalled from RN notes): No Skin Symptoms (Recalled from RN notes): Yes MS Symptoms (Recalled from RN notes): No Functional Status (Recalled from RN notes): WNL - History of Present Illness Provider Complaint: Patient states that he has noticed that he has been having swelling on and off under both armpit area and for the last 2-3 days noticed pain and like a knot under his left arm States that pain is worse when he pushes on it States that he hasnt had any fever or anything but worried that it may be swollen lymph nodes or infection States that it started about a month ago and would come and go but worse the last couple of days - Related Data Home Medications Medication Instructions Recorded Confirmed Hydrocod/Acet 5/325 mg [[place] 5 mg PO BID 03/05/18 05/02/18 5/325mg tablet] Fenofibrate 1 tab PO DAILY 04/12/18 05/02/18 Levothyroxine Sodium 1 tab PO DAILY 04/12/18 05/02/18 [Levothyroxine 100mcg (0.1MG) Tab] Lisinopril/Hydrochlorothiazide 1 tab PO DAILY 04/12/18 05/02/18 [Lisinopril-Hctz 20-25 mg Tab] Meloxicam 15 mg PO DAILY 04/12/18 05/02/18 risperiDONE [Risperidone] 2 mg PO DAILY 04/12/18 05/02/18 Previous Rx's Medication Instructions Recorded ranitidine HCl 150 mg tablet 150 mg PO BID #30 tab 10/08/18 Doxycycline Hyclate [Doxycycline 100 mg PO BID 7 Days cap 06/10/19 100mg Capsule] cephALEXin [Keflex 500mg Cap] 500 mg PO Q6H 5 Days #20 cap 01/18/20 Allergies Allergy/AdvReac Type Severity Reaction Status Date / Time milk [MILK] Allergy Unknown Verified 05/02/18 09:15 yeast, dried [YEAST] Allergy Unknown Verified 05/02/18 09:15 - Worker's Comp Is this a Worker's Comp case?: No [facility] History - Hepatitis A Screen Drug use history?: No High risk sexual behaviors?: No History of sexually transmitted infection?: No Currently employed?: No Childcare worker?: No Do you have indoor plumbing?: Yes Do you have electricity?: Yes Attestation statement:: This patient has been screened for Hepatitis A risk factors. I have reviewed the patient's past medical history: Yes Medical History: Reports:: Asthma, Hyperlipidemia, Hypertension Denies:: Diabetes Mellitus Type 1, Diabetes Mellitus Type 2, Internal Pacemaker, Lung Disease, Seizures Other Medical History: Radha
[2020-01-18 18:00] VITALS: BP 155/98; PULSE 78; RESP 20; TEMP 36.7; O2SAT 96
== END 2020-01-18 18:03 | disposition home or self-care (01) ==
PROVIDERS: Emergency Provider Nurse Practitioner; PCP Internal Medicine Adolescent Medicine
DX: L03.112 Cellulitis of left axilla (principal); L03.111 Cellulitis of right axilla; I10 Essential (primary) hypertension; E78.5 Hyperlipidemia, unspecified; E03.9 Hypothyroidism, unspecified; J45.909 Unspecified asthma, uncomplicated; Z79.899 Other long term (current) drug therapy
CPT/HCPCS: G0463; 99201

== ENCOUNTER → 2020-01-28 09:19 | Outpatient (CLI) | payer MEDICARE, MEDICAID, SELFPAY ==
--- NOTE | 2020-01-28 09:25 | XR_ITS ---
PROCEDURE: XR CHEST 2V CLINICAL HISTORY: ENLARGED LYMPH NODES COMPARISON: No exams were available for comparison FINDINGS: The cardiomediastinal silhouette and pulmonary vascularity are within normal limits. The lungs are clear without infiltrates, suspicious nodules, or pleural effusions. No acute bony abnormalities. IMPRESSION: No acute findings. Dictated by: Nnamdi Dickerson MD 01/28/2020 10:51 Electronically signed by Nnamdi Dickerson MD in [place] 01/28/2020 10:51
== END ==
PROVIDERS: PCP Physician Assistant; Visit Provider Physician Assistant
DX: R59.0 Localized enlarged lymph nodes (principal)
CPT/HCPCS: 71046

== ENCOUNTER → 2020-04-10 14:06 | Outpatient (CLI) | payer MEDICARE, MEDICAID, SELFPAY ==
[2020-04-10 14:55] LABS: Chloride 104 mmol/L (98-107); Potassium 3.6 mmoL/L (3.5-5.1); Sodium 142 mmol/L (136-145)
[2020-04-10 14:57] LABS: Blood Urea Nitrogen 8 mg/dl (9-20); Estimated Glomerular Filt Rate 99 ml/min (>60); GFR (African American) 120 ML/MIN (>60)
[2020-04-10 14:58] LABS: Alanine Aminotransferase 153 U/L (12-78); Albumin Level 4.6 g/dl (3.5-5.0); Albumin/Globulin Ratio 1.4 (1.1-1.8); Alkaline Phosphatase 46 U/L (38-126); Anion Gap 13.6 mEq/L (5-15); Aspartate Amino Transferase 132 U/L (17-59); Bilirubin,Total 0.8 mg/dl (0.2-1.3); Calcium 9.5 mg/dl (8.4-10.2); Carbon Dioxide 28 mmol/L (22.0-30.0); Chol/HDL Ratio 5.9 (1-3.5); Cholesterol 182 mg/dl (140-200); Globulin 3.2 g/dL (1.3-3.2); Glucose 109 mg/dl (74-100); HDL Cholesterol 31 mg/dl (40-60); Total Protein,Serum 7.8 g/dl (6.3-8.2)
[2020-04-10 14:59] LABS: Triglycerides 452 mg/dl (30-150)
[2020-04-10 15:10] LABS: Direct LDL Cholesterol 87.07 mg/dL (100-129)
[2020-04-10 15:16] LABS: Troponin I < 0.01 ng/ml (0.00-0.034)
[2020-04-10 15:29] LABS: Thyroid Stimulating Hormone 3.61 uIU/mL (0.465-4.68)
[2020-04-16 10:26] LABS: Hep A Ab, IgM Negative (Negative); Hepatitis B Core Antibody IgM Negative (Negative); Hepatitis B Surface Antigen Negative (Negative); Hepatitis C Antibody <0.1 s/co ratio (0.0-0.9)
== END ==
PROVIDERS: Visit Provider Nurse Practitioner Family
DX: Z00.00 Encounter for general adult medical examination without abnormal findings (principal); R07.9 Chest pain, unspecified; E03.9 Hypothyroidism, unspecified; I10 Essential (primary) hypertension; R94.5 Abnormal results of liver function studies
CPT/HCPCS: 36415; 80053; 80061; 80074; 84443; 84484

== ENCOUNTER → 2020-04-16 06:59 | Outpatient (CLI) | payer MEDICARE, MEDICAID, SELFPAY ==
--- NOTE | 2020-04-16 | CA_ITS ---
APPROVED REPORT Exam: Pharmacologic Technologist: Agnes Vasquez, Ht: 5 ft 7 in Wt: 219 lbs BSA: 2.10 m2 HR: 66 bpm BP: 140/95 mmHg Rhythm: NSR,T WAVE ABNORMALITIES IN LEADS III AND aVF Medical History Medical History: HTN Medications: Levothyroxine,,,,, Lisinopril/HCTZ,,,,, MeLOXICAM,,,,, Prather,,,,, FeNOfibrate,,,,, RespiridoNE,,,,, Cardiac Risk Factors: HTN, FHX of CAD Stress Test Details Test: LEXISCAN HR Resting HR: 68 bpm Max Heart Rate (APMHR): 162 bpm Max HR Achieved: 89 bpm Target HR (85% APMHR): 137 bpm % of APMHR: 54 Recovery HR: 79 bpm BP Resting BP: 140.0/95.0 mmHg Max BP: 158.0/101.0 mmHg Recovery BP: 143.0/97.0 mmHg ECG Resting ECG: NSR, T WAVE ABNS INLEADS III AND aVF Clinical Exercise duration: 04:05 min Highest Stage Achieved: Exercise capacity: 1.0 METs Stress ECG Conclusion SWITCHED FROM EXERCISE DUE TO BACK PAIN. DURING INFUSION PATIENT HAD BRIEF SOA AND MILD MALAISE. NO CHEST PAIN. NO ARRHYTHMIAS/ECTOPY. NONSPECIFIC T WAVE CHANGES. UNREMARKABLE LEXISCAN STRESS. MYOVIEW IMAGES REPORTED SEPARATELY. Test Summary REST . . . . . . . Sitting REST . . . . . . . Sitting REST 03:48 . . 68 . 140/ 95 . . Stage 1 . . . . . . . Myoview Injected Stage 1 01:00 . . 84 . . . . Stage 2 01:00 . . 81 . 156/ 99 . . Stage 3 01:00 . . 73 . 158/101 . . Stage 4 01:00 . . 74 . 137/ 97 . . Stage 4 01:05 . . 73 . 137/ 97 . Stop exercise at 04:05 RECOVERY 01:00 . . 77 . . . . RECOVERY 02:00 . . 71 . . . . RECOVERY 03:00 . . 69 . 142/ 96 . . RECOVERY 03:20 . . 72 . 142/ 96 . . Electronically signed by : Hakeem Smith 04/16/2020 12:48:09
--- NOTE | 2020-04-16 07:02 | NM_ITS ---
APPROVED REPORT Exam: Nuclear Stress Test Indication: chest pain..short of breath Patient Location: Outpatient Stress Tech: Alyse Pettynkson NM Tech:JOSEPH Carbajal RT(R)(N) Ht: 5 ft 7 in Wt: 219 lbs HR: 66 bpm BP: 140/95 mmHg BSA: 2.10 m2 BMI: 34.2 History: chest pain..short of breath Procedure: Patient received a 0.4 mg of intravenous Lexiscan, resting heart rate 66 bpm, resting blood pressure 140/95 mmHg, with Lexiscan maximum heart rate achived was 79 bpm which is Less than 85 % of the maximum predicted heart rate and blood pressure was 143/97 mmHg. With Lexiscan, patient denied any complaint of chest pain. Electrocardiogram Resting electrocardiogram showed sinus rhythm, with Lexiscan there is less than 1.[address] segment depression noted from the baseline EKG. The EKG portion of the Lexiscan Myoview is nondiagnostic. Cardiac Stress and Resting SPECT Images: Cardiac Stress and Resting SPECT images were obtained using technetium 99m Myoview 31.8 mCi stress and 10.10 mCi at rest. Gated SPECT for analysis of segmental wall motion and calculation of the ejection fraction also done. Cardiac stress and resting SPECT images show uniform myocardial activity without segmental perfusion abnormality, computer derived ejection fraction is 54% with no regional wall motion abnormality, right ventricle is normal size and contractility. Conclusion: 1. The EKG portion of the Lexiscan Myoview is nondiagnostic. 2. No scintigraphic evidence of reversible ischemia seen, computer derived ejection fraction is 54% with no regional wall motion abnormality, right ventricle is normal size and contractility. 3. Normal Lexiscan Myoview study. Electronically signed by : Hakeem Smith, 04/16/2020 12:49:48
--- NOTE | 2020-04-16 09:26 | HMH.ITSHM ---
Current Home Medications as stated by this patient Anjel Langford or service liaison representative. [] lisinopril omeprazole levothroxin meloxicam
== END ==
PROVIDERS: PCP Internal Medicine Adolescent Medicine; Visit Provider Nurse Practitioner Family
DX: R07.9 Chest pain, unspecified (principal); R06.02 Shortness of breath
CPT/HCPCS: 78452; 93017; A9502; J2785

== ENCOUNTER → 2020-05-04 07:56 | Outpatient (CLI) | payer MEDICARE, MEDICAID, SELFPAY ==
--- NOTE | 2020-05-04 07:58 | US_ITS ---
PROCEDURE: US LIVER CLINICAL INDICATION: ELEVATED LIVER ENZYMES COMPARISON: No exams were available for comparison FINDINGS: PANCREAS: Unremarkable. No obvious mass or abnormal fluid collection. No ductal dilatation LIVER: Diffuse increased echogenicity of the liver with poor through transmission of sound consistent with hepatic steatosis. No focal liver lesion demonstrated. There is appropriate direction of blood flow within non dilated portal vein. RIGHT KIDNEY: No hydronephrosis. There is a 2 cm cyst along the lower pole of the right kidney GALLBLADDER: No gallstones, gallbladder wall thickening, pericholecystic fluid, or biliary dilatation. IMPRESSION: Fatty liver and right renal cyst otherwise negative Dictated by: Nnamdi Dickerson MD 05/04/2020 12:31 Nnamdi Dickerson MD in [place] 05/04/2020 12:31
== END ==
PROVIDERS: PCP Internal Medicine Adolescent Medicine; Visit Provider Internal Medicine Adolescent Medicine
DX: R74.8 Abnormal levels of other serum enzymes (principal)
CPT/HCPCS: 76705

== ENCOUNTER 2020-08-03 07:31 | Observation (INO) | payer MEDICARE, MEDICAID, SELFPAY ==
[2020-08-03] VITALS (13 sets, daily range): BP systolic 121–180; BP diastolic 74–111; PULSE 82–92; RESP 15–18; TEMP 36.6–36.9; O2SAT 92–97; BMI 33.8; BMI 34.5
--- NOTE | 2020-08-03 07:40 | XR_ITS ---
PROCEDURE: XR TIBIA FIBULA RT 2V CLINICAL INDICATION: fall Posttraumatic pain COMPARISON: CR XR ANKLE RT MIN 3V from 08/03/2020 FINDINGS: There is a severely comminuted fracture involving the distal tibia with extension into the articular surface. There is minimal medial displacement the medial fragment. A bony fragment is noted at the distal fibula consistent with an avulsion injury which is age indeterminate. The proximal and mid aspect of the tib fib have an unremarkable appearance The ankle mortise is slightly widened. Soft tissue swelling is present laterally IMPRESSION: Comminuted distal tibial fracture with mild widening of the ankle mortise with avulsion fracture of the tip of the fibula Dictated by: Nnamdi Dickerson MD 08/03/2020 09:09 Nnamdi Dickerson MD in [place] 08/03/2020 09:09
--- NOTE | 2020-08-03 07:44 | PC.NURSE ---
notified rad of images
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
--- NOTE | 2020-08-03 08:34 | PC.NURSE ---
notified radiology of ankle xray for pt.
--- NOTE | 2020-08-03 08:44 | PC.NURSE ---
xray being done
--- NOTE | 2020-08-03 09:21 | PC.NURSE ---
Dr Ruiz paged at this time for Dr Simental.
--- NOTE | 2020-08-03 09:22 | PC.NURSE ---
speaking with Dr. House
--- NOTE | 2020-08-03 09:24 | CT_ITS ---
PROCEDURE: CT ANKLE RT WO CON CLINICAL HISTORY: fracture Evaluate ankle fracture COMPARISON: No exams were available for comparison TECHNIQUE: Axial images obtained with sagittal and coronal reformats. All CT scans at the facility use one or more dose reduction, viz: automated exposure control, ma/kV adjustment per patient size (including targeted exams where dose is matched to indication, i.e. head), or iterative reconstruction technique. FINDINGS: There is a severely comminuted fracture involving the distal tibia with intra-articular involvement. Multiple fragments are present with intra-articular extension. There is 12 mm separation of the main fracture fragments anteriorly. There is widening of the ankle mortise. The comminuted fracture an intra-articular involvement extends from the lateral to the medial aspect of the tibia and the anterior to posterior aspect of the tibia as well forming a burst type fracture of the distal tibia. Avulsion fracture fragments noted of the medial aspect of the distal tibia. There is a bony fragment along the anterior and distal aspect of the fibula which is felt to be due to an avulsion fracture of the posterior and distal aspect of the talus at the talofibular junction distally. This fragment measures 11 mm. There is a well-circumscribed bony fragment posterior to the lateral aspect the navicular consistent with an os navicularis. Soft tissue swelling is present laterally at the ankle and dorsal lateral aspect of the foot. There is also soft tissue swelling medially at the ankle. The the calcaneus has an unremarkable appearance there is an os cuboideum. IMPRESSION: 1. Comminuted mildly displaced intra-articular distal tibial fracture/burst fracture distal tibia as described above with widened mortise. The talus is slightly inverted. 2. Avulsion fracture of the distal and lateral aspect of the talus at the talofibular junction 3. Diffuse soft tissue swelling about the dorsal lateral aspect of the foot and lateral and medial aspect of the ankle. Dictated by: Nnamdi Dickerson MD 08/03/2020 10:31 Nnamdi Dickerson MD in [place] 08/03/2020 10:31
--- NOTE | 2020-08-03 09:24 | PC.NURSE ---
speaking with Dr House.
--- NOTE | 2020-08-03 09:27 | HMH.EDGENADL ---
ED Disposition Clinical Impression: Fracture of tibia, distal, right, closed Qualifiers: Encounter type: initial encounter Fracture morphology: unspecified fracture morphology Qualified Code(s): S82.301A - Unspecified fracture of lower end of right tibia, initial encounter for closed fracture Disposition: Admitted As Inpatient Condition on Discharge: Serious Referrals: PCP,No [Primary Care Provider] - - Critical Care Critical Care Time: No Attestation: On 08/03/20, the high probability of a clinically significant, sudden or life threatening deterioration of the following system(s) required my full and direct attention, intervention and personal management. The time I documented below is in addition to time spent performing reported procedures but includes the following listed in this critical care notation. Medical Decision Making - Medical Records Medical records reviewed: Yes: I reviewed the patient's medical records. - Iglesia Inquiry Pt receiving controlled substance: Yes Ig[place] was queried for this patient: No Reason not queried -: Emergent pt cond-no time Risks and benefits of using a controlled substance: were discussed with pt by me Vital Signs: 08/03/20 07:31 08/03/20 07:32 08/03/20 08:01 Temperature 98 F Temperature Source Oral Pulse Rate [Right] 91 H 86 90 Respiratory Rate 16 Blood Pressure [Right Arm] 121/84 121/84 160/99 H Blood Pressure Mean [Right Arm] 96 96 119 Blood Pressure Source [Right Arm] Automatic Cuff Automatic Cuff Blood Pressure Position [Right Arm] Supine Sitting Supine 02 Sat by Pulse Oximetry 93 L 96 92 L Oxygen Delivery Method Room Air Room Air Room Air 08/03/20 08:30 08/03/20 09:00 Temperature Temperature Source Pulse Rate [Right] 85 89 Respiratory Rate 16 Blood Pressure [Right Arm] 180/111 H 161/106 H Blood Pressure Mean [Right Arm] 134 124 Blood Pressure Source [Right Arm] Automatic Cuff Automatic Cuff Blood Pressure Position [Right Arm] Sitting Supine 02 Sat by Pulse Oximetry 95 95 Oxygen Delivery Method Room Air Orders (Tests/Meds): ED MEDICATIONS Discontinued Medications Generic Name Dose Route Start Last Admin Trade Name Freq PRN Reason Stop Dose Admin Hydrocodone Bitart/Acetaminophen 1 tab 08/03/20 08:25 08/03/20 08:28 Hydrocodone 10mg/Apap 325mg Tab PO 08/03/20 08:26 1 tab ONCE ONE Administration Morphine Sulfate 4 mg 01/25/21 09:24 Morphine 4mg/Ml Syringe IV 08/03/20 09:25 ONCE ONE Ondansetron HCl 4 mg 08/03/20 09:24 Ondansetron 4mg/2ml Vial IV 08/03/20 09:25 ONCE ONE ORDERS Category Date Time Status CT ankle RT wo con Stat Cat Scan 08/03/20 09:24 Ordered Complete Blood Count Auto Diff Stat Lab 08/03/20 09:24 Ordered Comprehensive Metabolic Panel Stat Lab 08/03/20 09:24 Ordered Covid-19 IgG/IgM ([facility]) Stat Lab 08/03/20 09:24 Ordered PTT [Activated Partial Thrombo Time] Stat Lab 08/03/20 09:24 Ordered Prothrombin Time INR Stat Lab 08/03/20 09:24 Ordered - Radiology Data #1 Image(s): Tib/Fib, Ankle Image Reviewed: Yes I reviewed the patient's radiology results, Yes I reviewed the patient's radiology image, Yes I have reviewed radiologist's interpretation IMPRESSION: Comminuted distal tibial fracture with mild widening of the ankle mortise with avulsion fracture of the tip of the fibula - Reevaluation(s) Time: 09:34 Reevaluation #1: On reevaluation, patient's pain is slightly improved. Findings are significant for comminuted fracture of the distal tibia with widening of the ankle mortise. Orthopedic surgery was notified. Patient will be placed in immobilizer. Admitted to hospital. Medical Decision Narrative: 59-year-old male presented to the emergency department with right ankle pain. Findings are concerning for fracture. Imaging will be obtained. General Adult HPI - General Chief complaint: PAIN Stated complaint: ankle pain Time Seen by Provider:
--- NOTE | 2020-08-03 09:40 | PC.NURSE ---
speaking with Dr. Reddy
--- NOTE | 2020-08-03 09:40 | PC.NURSE ---
Pt going to CT
--- NOTE | 2020-08-03 09:45 | PC.NURSE ---
notified care management of admission
[2020-08-03 10:50] LABS: Chloride 105 mmol/L (98-107)
[2020-08-03 10:51] LABS: Potassium 4.2 mmoL/L (3.5-5.1); Sodium 141 mmol/L (136-145)
[2020-08-03 10:53] LABS: Alanine Aminotransferase 130 U/L (12-78); Aspartate Amino Transferase 73 U/L (17-59); Blood Urea Nitrogen 17 mg/dl (9-20); Creatinine Clearance Estimated 112 mL/min (50-200); Estimated Glomerular Filt Rate 77 ml/min (>60); GFR (African American) 93 ML/MIN (>60)
[2020-08-03 10:54] LABS: Albumin Level 5.1 g/dl (3.5-5.0); Albumin/Globulin Ratio 1.5 (1.1-1.8); Alkaline Phosphatase 55 U/L (38-126); Anion Gap 13.2 mEq/L (5-15); Bilirubin,Total 0.4 mg/dl (0.2-1.3); Calcium 9.8 mg/dl (8.4-10.2); Carbon Dioxide 27 mmol/L (22.0-30.0); Globulin 3.5 g/dL (1.3-3.2); Glucose 123 mg/dl (74-100); Total Protein,Serum 8.6 g/dl (6.3-8.2)
--- NOTE | 2020-08-03 11:00 | PC.NURSE ---
Pt admitted, to board in ED at this time.
[2020-08-03 11:02] LABS: Basophils # 0.1 K/mm3 (0-0.2); Basophils % 0.8 % (0.1-2.0); Eosinophils # 0.2 K/mm3 (0.0-0.4); Eosinophils % 1.5 % (0.1-12.0); Hemoglobin 14.7 g/dL (14.1-18.0); Lymphocytes # 1.4 K/mm3 (0.7-4.5); Lymphocytes % 12.1 % (10-50); Mean Corpuscular HGB Conc 33.4 g/dL (31.8-35.4); Mean Corpuscular Hemoglobin 29.4 pg (27.0-31.2); Mean Platelet Volume 8.2 fl (7.4-10.4); Monocytes # 0.5 K/mm3 (0.1-1.0); Monocytes % 4.7 % (1.7-9.3); Neutrophils # 9.2 K/mm3 (1.8-7.8); Platelet Count 339 K/mm3 (142-424); Red Cell Distribution Width 14.6 % (11.5-17.5); White Blood Count 11.3 K/mm3 (4.8-10.8)
[2020-08-03 11:10] LABS: Coronavirus 19 IgG Antibody Negative (Negative); Coronavirus 19 IgM Antibody Negative (Negative)
[2020-08-03 11:26] LABS: Activated Partial Thrombo Time 21.8 seconds (23.6-34.0); Prothrombin Time 12.1 seconds (9.4-11.8)
--- NOTE | 2020-08-03 12:03 | PC.NURSE ---
Dr. House at bedside, ordered lunch try for pt
--- NOTE | 2020-08-03 13:04 | PC.NURSE ---
Notified Floor pt was admission
--- NOTE | 2020-08-03 13:24 | PC.NURSE ---
patient arrived to room
--- NOTE | 2020-08-03 13:58 | P.CONPHA_ITS ---
[facility] Pharmacy VTE Monitoring - Patient Demographics Admission date: 08/03/20 Report Date: 08/03/20 Time: 13:58 Allergies/Adverse Reactions: Patient Allergies milk [MILK] Allergy (Unknown, Verified 08/03/20 07:40) yeast, dried [YEAST] Allergy (Unknown, Verified 08/03/20 07:40) Height: 1.7 m Weight: 97.976 kg Patient Problems: Current Active Problems Fracture of tibia, distal, right, closed (Acute) - VTE Risk Labs: VTE Related Lab Results Hgb 14.7 g/dL (14.1-18.0) 08/03/20 10:20 Hct 44.0 % (42.0-52.0) 08/03/20 10:20 Plt Count 339 K/mm3 (142-424) 08/03/20 10:20 PT 12.1 seconds (9.4-11.8) H 08/03/20 10:20 INR 1.10 (0.9-1.1) 08/03/20 10:20 APTT 21.8 seconds (23.6-34.0) L 08/03/20 10:20 BUN 17 mg/dl (9-20) 08/03/20 10:20 Creatinine 1.00 mg/dl (0.66-1.25) 08/03/20 10:20 Estimated Creat Clear 112 mL/min (50-200) 08/03/20 10:20 Clinical Trial Participant: No - Prophylaxis VTE Prophylaxis Ordered?: Yes Types of VTE Prophylaxis: Pharmacological Pharmacologic Type: Heparin
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
--- NOTE | 2020-08-03 14:39 | HMH.PHAINT ---
home medication list completed using list from home pharmacy
[2020-08-03 15:01] LABS: 25-OH Vitamin D, Total 13.8 ng/mL (30-100)
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
[2020-08-04] VITALS (21 sets, daily range): BP systolic 114–144; BP diastolic 63–96; PULSE 80–120; RESP 14–18; TEMP 36.2–37.7; O2SAT 90–97; BMI 35.9
--- NOTE | 2020-08-04 | XR_ITS ---
PROCEDURE: XR ANKLE RT 2V CLINICAL INDICATION: s/p ex-fix R ankle External fixation right ankle fracture follow-up COMPARISON: CR XR ANKLE RT MIN 3V from 08/03/2020 XA XR ANKLE RT 2V from 08/04/2020 FINDINGS: External fixators have been placed with screws at the proximal tib fib and calcaneal area with anterior stabilizing rods. Comminuted fracture of the distal tibia with intra-articular involvement once again noted not significantly changed. Good alignment. Fluoro images are submitted from the operative procedure showing the external fixator placement. IMPRESSION: Good alignment status post external fixator placement stabilizing the comminuted distal tibial fracture. Dictated by: Nnamdi Dickerson MD 08/04/2020 15:58 Nnamdi Dickerson MD in OV 08/04/2020 15:58
--- NOTE | 2020-08-04 02:31 | PC.NURSE ---
A&OX4. PT HAS TOLERATED RA WELL THROUGHOUT SHIFT. RESPIRATIONS REGULAR AND UNLABORED. LUNG SOUNDS BILATERALLY CLEAR. NO COUGH NOTED. ACTIVE BOWEL SOUNDS HEARD IN ALL 4 QUADRANTS. SOFT AND NONTENDER ABDOMEN. NO BM THUS FAR. PT VOIDS PER URINAL INDEPENDENTLY. NO EDEMA NOTED. HAND DIET COUNSELOR EQUAL. +2 PULSES NOTED. PT REPORTED PAIN ONCE AND RECEIVED DILAUDID. ON REASSESSMENT, PT STATED PAIN WAS TOLERABLE. DRESSING NOTED TO R LEG. CDI. R LEG HAS REMAINED ELEVATED. SCUD NOTED TO L LEG. PT ENCOURAGED TO USE INCENTIVE SPIROMETER 10 TIMES EVERY HOUR WHILE AWAKE. NS INFUSING AT 100ML/HR. PT RECEIVED BATH IN PREPARATION FOR SURGERY. CONSENT SIGNED AND ON THE CHART. PRE OP CHECKLIST COMPLETED. PT HAS REMAINED NPO SINCE MIDNIGHT. BED IN LOWEST POSITION. CALL LIGHT WITHIN REACH. VSS. WILL CONTINUE TO MONITOR.
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
[2020-08-04 07:02] LABS: Basophils # 0.1 K/mm3 (0-0.2); Basophils % 1.5 % (0.1-2.0); Eosinophils # 0.3 K/mm3 (0.0-0.4); Eosinophils % 3.3 % (0.1-12.0); Hematocrit 38.8 % (42.0-52.0); Lymphocytes # 2.2 K/mm3 (0.7-4.5); Lymphocytes % 27.9 % (10-50); Mean Corpuscular HGB Conc 34.1 g/dL (31.8-35.4); Mean Corpuscular Hemoglobin 30.1 pg (27.0-31.2); Mean Corpuscular Volume 88.3 fl (80-94); Monocytes # 0.6 K/mm3 (0.1-1.0); Monocytes % 7.3 % (1.7-9.3); Neutrophils # 4.8 K/mm3 (1.8-7.8); Platelet Count 298 K/mm3 (142-424); Red Cell Distribution Width 14.6 % (11.5-17.5)
[2020-08-04 07:06] LABS: Hemoglobin 13.2 g/dL (14.1-18.0)
[2020-08-04 07:11] LABS: Anion Gap 13.1 mEq/L (5-15); Blood Urea Nitrogen 17 mg/dl (9-20); Calcium 9.1 mg/dl (8.4-10.2); Carbon Dioxide 27 mmol/L (22.0-30.0); Chloride 104 mmol/L (98-107); Creatinine Clearance Estimated 118 mL/min (50-200); Estimated Glomerular Filt Rate 77 ml/min (>60); GFR (African American) 93 ML/MIN (>60); Glucose 123 mg/dl (74-100); Potassium 4.1 mmoL/L (3.5-5.1); Sodium 140 mmol/L (136-145)
--- NOTE | 2020-08-04 12:53 | P.PN_ITS ---
[facility] Anesthesia Checklist - Patient Identification Patient Identification: Arm Band, Verbal (Name & ) - Structural Data Admitted From: Home Planned Operative Procedure/s: orif right ankle Consent for Planned Operative Procedure(s) Verified: Yes Verified Documents: History and Physical - NPO Status Verified Time NPO: 00:00 - Additional verifications Patient : No Anesthesia Reactions: No Hx Blood Transfusions: No Blood Transfusion Reaction: No Cephalosporin Allergy: No Previous Colonoscopy: No - Cardiovascular Assessment Heart Sounds: S1 & S2 Pulse Strength: Baseline Pulse Rhythm: Regular Peripheral Edema: No - Airway Assessment C-Spine Mobility Assessed: Yes TMJ Mobility Assessed: Yes Dentition: Good Dentition - Neurological Assessment Level of Consciousness: Awake, Alert, Appropriate Hx Seizures: No Numbness or tingling in extremities: No - Anesthesia Plan Anesthesia Risk discussed: Yes Anesthesia Plan: Verified ASA Class: III Anesthesia Type: General w/block [facility] History I have reviewed the patient's past medical history: Yes Medical History: Reports:: Asthma, Hyperlipidemia, Hypertension Denies:: Diabetes Mellitus Type 1, Diabetes Mellitus Type 2, Internal Pacemaker, Lung Disease, Seizures *Have you ever received a pneumonia vaccine?: No *Have you received a flu vaccine this season?: No Other Medical History: Reports: Arthritis, Hypothyroidism Anesthesia experience/problems:: none Laterality Cases: Right: Arthroscopy Hip, Arthroscopy Shoulder Other Surgeries: Yes: Colonoscopy, EGD, Thyroidectomy. No: Pacemaker - *Social History Last grade of school completed: 7th or 8th Smoking Status: Never smoker Tobacco Type: smokeless tobacco # Packs/Day (cigarettes): 0 Alcohol Intake: never Substance Use Type: denies use *Occupational Status:: disabled Household Members: children *Travel in the last 8 weeks: None Family Hx:: No significant family history
--- NOTE | 2020-08-04 13:10 | PC.NURSE ---
Pt down to surgery via bed @ this time
--- NOTE | 2020-08-04 17:21 | PC.NURSE ---
Pt returned to floor from PACU @ 1600. Is A&O x4. Currently on 2 L O2 per nasal cannula to maintain sat >90%. Lungs CTA. HR regular. Abdomen soft, non-tender w/ active BS. RLE in surgical dressing. Pt unable to move toes @ this time d/t nerve block. Toes are pink, cap refill <3 sec. LLE w/ +2 ped pulses. Scud in place to LLE. RLE elevated per Md orders. Has voided since returning to floor. No BM this shift. Denies pain @ this time. Call kelley w/in reach. VSS
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
--- NOTE | 2020-08-04 17:53 | HMH.ORTHPN ---
Subjective Date: 08/04/20 Time: 17:45 Principal diagnosis: R tibial pilon fracture Interval history: The patient underwent closed reduction and external fixator application of the R tibial pilon fracture without complication. This was done with general anesthesia/LMA and popliteal block; no complications, EBL minimal. PN: Obj Ex Vital signs: Temp Pulse Resp BP Pulse Ox 99.9 F H 100 H 18 143/87 H 92 L 08/04/20 16:45 08/04/20 16:45 08/04/20 17:52 08/04/20 16:45 08/04/20 16:45 - Constitutional no acute distress - Routine HEENT Exam Head: Present: normocephalic Eye: Present: EOMI ENT: Present: mucous membranes moist - Routine Neck Exam Present: trachea midline - Routine Respiratory Exam Absent: respiratory distress, wheezes - Routine Cardiovascular Exam Present: RRR - Routine Abdominal Exam Present: soft. Absent: tenderness - Routine Extremities Exam Comments: post-operatively in PACU: moderate soft tissue swelling R ankle R ankle dressings & ex-fix c/d/i no open wounds, lacerations/abrasions or ecchymosis R ankle/foot hyperkeratosis with suspected fungal infection of toenails RLE motor/sensory impaired due to nerve block + patient still slightly sedated R calf soft, compressible, non-tender palpable pedal pulses RLE, foot pink/warm - Routine Skin Exam Present: intact, warm Progress Note: A&P (1) Fracture of tibia, distal, right, closed Status: Acute (2) Hypertension Status: Acute (3) Smokeless tobacco use Status: Acute (4) Hypothyroid Status: Chronic (5) Class II obesity Status: Chronic Assessment and Plan for All Diagnoses:: 59yo M POD 0 s/p closed reduction R distal tibial pilon fracture with external fixator application -- NWB RLE, keep leg elevated at all times and ice frequently -- PT to eval -- care management consult pending -- vitamin D was very low (13.8 ng/mL 25-OH vit D); 50,000 units weekly started -- finish 24hr prophy antibiotics (ancef) -- DVT prophy: lovenox, to start tomorrow -- may possible be d/c tomorrow from ortho standpoint if dispo determined; will need prolonged period of non-weightbearing and will need transportation to and from office visits and for return surgery/ORIF
[2020-08-05] VITALS (7 sets, daily range): BP systolic 112–149; BP diastolic 53–85; PULSE 82–98; RESP 16–18; TEMP 36.4–36.7; O2SAT 93–96; BMI 35.6
--- NOTE | 2020-08-05 04:21 | PC.NURSE ---
Pt is A&Ox4. Lung sounds CTA. Pt reeducated on IS use, pt verbalized understanding. IS @ best 1750cc's. Hypoactive bowel sounds in al 4 quads. No BM noted this shift. Pt is urinating cloudy, dark yellow urine independently per urinal. Dressing on RLE remains CDI w/ screws remaining in place. Leg has been propped up on 2 pillows lengthwise at all times. Pt has been offered ice packs multiple times per nursing staff, but has refused every time. Pt has received PRN pain meds x2 thus far this shift, with favorable results. Pt has been tachycardic this shift, but has remained asymptomatic to any distress. No other acute changes or complaints at this time.
[2020-08-05 07:49] LABS: Basophils % 0.3 % (0.1-2.0); Eosinophils % 0.1 % (0.1-12.0); Hematocrit 34.5 % (42.0-52.0); Hemoglobin 11.1 g/dL (14.1-18.0); Lymphocytes # 1.1 K/mm3 (0.7-4.5); Mean Corpuscular HGB Conc 32.1 g/dL (31.8-35.4); Mean Corpuscular Hemoglobin 28.6 pg (27.0-31.2); Mean Corpuscular Volume 89.1 fl (80-94); Mean Platelet Volume 7.8 fl (7.4-10.4); Monocytes # 0.7 K/mm3 (0.1-1.0); Monocytes % 8.4 % (1.7-9.3); Neutrophils # 6.1 K/mm3 (1.8-7.8); Neutrophils % 77.1 % (37.0-80.0); Platelet Count 268 K/mm3 (142-424); Red Blood Count 3.87 M/mm3 (4.60-6.20); Red Cell Distribution Width 13.9 % (11.5-17.5)
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
--- NOTE | 2020-08-05 07:59 | P.PN_ITS ---
Subjective Date: 08/05/20 Time: 08:00 Principal diagnosis: R tibial pilon fracture Interval history: The patient is doing well this morning, pain is present but improved from pre- operatively. No f/c, no n/v/d, no abd pain or sob. PN: Obj Ex Vital signs: Temp Pulse Resp BP Pulse Ox 97.6 F 82 16 112/53 L 93 L 08/05/20 04:00 08/05/20 04:00 08/05/20 07:37 08/05/20 04:00 08/05/20 04:00 - Constitutional no acute distress - Routine HEENT Exam Head: Present: normocephalic Eye: Present: EOMI ENT: Present: mucous membranes moist - Routine Neck Exam Present: trachea midline - Routine Respiratory Exam Absent: respiratory distress, wheezes - Routine Cardiovascular Exam Present: RRR - Routine Abdominal Exam Present: soft. Absent: tenderness - Routine Extremities Exam Comments: R ankle dressings & ex-fix c/d/i hyperkeratosis with suspected fungal infection of toenails RLE wiggles toes, DF/PF RLE impaired due to ex-fix SILT distally RLE R calf soft, compressible, non-tender palpable pedal pulses RLE, foot pink/warm - Routine Skin Exam Present: warm - Routine Neurological Exam Present: alert, oriented X3, moving all extremities, normal tone, vision grossly intact, hearing grossly intact, normal speech. Absent: sensory deficit, motor deficit, altered mental status Progress Note: A&P (1) Fracture of tibia, distal, right, closed Status: Acute (2) Hypertension Status: Acute (3) Smokeless tobacco use Status: Acute (4) Hypothyroid Status: Chronic (5) Class II obesity Status: Chronic Assessment and Plan for All Diagnoses:: 59yo M POD 1 s/p closed reduction R distal tibial pilon fracture with external fixator application -- NWB RLE, keep leg elevated at all times and ice frequently -- PT to eval -- care management arranging DME -- vitamin D was very low (13.8 ng/mL 25-OH vit D); 50,000 units weekly started -- finish 24hr prophy antibiotics (ancef) -- DVT prophy: lovenox, to start today -- may d/c today from ortho standpoint if dispo determined; will need prolonged period of non-weightbearing and will need transportation to and from office visits and for return surgery/ORIF. Follow-up with me in the office next 08/10/20
[2020-08-05 08:02] LABS: Alanine Aminotransferase 82 U/L (12-78); Albumin Level 4.4 g/dl (3.5-5.0); Albumin/Globulin Ratio 1.4 (1.1-1.8); Alkaline Phosphatase 40 U/L (38-126); Anion Gap 13.4 mEq/L (5-15); Aspartate Amino Transferase 51 U/L (17-59); Bilirubin,Total 0.5 mg/dl (0.2-1.3); Blood Urea Nitrogen 13 mg/dl (9-20); Carbon Dioxide 28 mmol/L (22.0-30.0); Chloride 102 mmol/L (98-107); Creatinine Clearance Estimated 131 mL/min (50-200); Estimated Glomerular Filt Rate 87 ml/min (>60); GFR (African American) 105 ML/MIN (>60); Globulin 3.1 g/dL (1.3-3.2); Glucose 117 mg/dl (74-100); Magnesium 2.2 mg/dl (1.6-2.3); Potassium 4.4 mmoL/L (3.5-5.1); Sodium 139 mmol/L (136-145); Total Protein,Serum 7.5 g/dl (6.3-8.2)
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
--- NOTE | 2020-08-05 09:13 | HMH.PTEV ---
Physical Therapy Evaluation Rehab PT IP Evaluation Start: 08/04/20 16:02 Freq: ONCE Status: Active Protocol: Document 08/05/20 09:08 PHORJORGE (Rec: 08/05/20 09:13 PHORNE [id number]) Subjective/History History History 59 yowm adm to [facility] S/P R ankle fx, now S/P R ankle ex-fix placement. He reports he lives with children at home, no steps to enter the home. Subjective Subjective He reports no new c/o this am. Rehab PT IP Eval Objective Appearance Patient Behavior Appropriate Patient Orientation Person,Place,Time Difficulty following instructions none Speech Pattern Clear Ambulation Patient Able to Ambulate Yes Ambulation Observation IP General Gait Pattern Observation Decrease Weight Bear (R), Decrease Stride Lngth (L) Ambulation Distance (feet) 5 Ambulation Assistive Device Rolling Walker Ambulation Ability Supervision/Stand by Balance Ability to Arise Able, w/o using arms Sitting Balance Steady, safe Standing Balance Steady, wide stance Dynamic Sitting Balance Ability Good Dynamic Standing Balance Ability Good Transfers Bed Transfer Ability Supervision/Stand by Chair Transfer Ability Supervision/Stand by Sit to Stand Bed Transfer Ability Supervision/Stand by Sit to Stand Chair Transfer Ability Supervision/Stand by ROM All Extremities PT ROM Status WFL Abnormal ROM Comment except R ankle NT MMT All Extremities PT MMT WFL Abnormal MMT Grade except R ankle NT Rehab PT IP prob,goals,plan Problems Date of Evaluation: 08/05/20 PT IP Problems Bed Mobility,Transfers,Gait Rehab Potential Rehab Potential Good Equipment Needs Assistive Devices Rolling / Wheeled Walker Plan PT Intervention Plan Bed Mobility,Transfers,Gait, Therapeutic Exercise PT Plan Frequency BID Duration LOS Discharge Goals Bed Transfer Ability Independent Sit to Stand Chair Transfer Ability Independent Ambulation Assistive Device Rolling Walker Ambulation Distance (feet) 10 Discharge Plan PT Discharge Plan Pt is appropriate to return home once medically stable. G -code Required No Eval Complexity Eval Charge Codes 57569 - Moderate Complexity PHYSICIAN CERTIFICATION: I certify the specified therapy services for Anjel Langford are required, authorized, and reviewed every 30 days.
--- NOTE | 2020-08-05 09:52 | CARE MANAGER ---
Rounded with Dr. Reddy and spoke with Dr. Flores. The patient requires assistance with mobilization. He is non-weight bearing to his right ankle following surgery. Patient is able to maneuver utilziing walker. MICHAEL San
--- NOTE | 2020-08-05 11:40 | PC.NURSE ---
Addendum entered by Ara Camacho RN 08/05/20 14:24: PT will be going home w/ prescribed pain meds, is to call Dr. Reddy's office in AM. Pt aware, verbalized understanding. Addendum entered by Ara Camacho RN 08/05/20 11:43: 1143 - Also called Dr. Reddy's office, he is currently in a room w/ a patient. Left extension for call back. Original Note: 1131 - Pt to be discharge, current pain med regimen not controlling pt's pain long enough. Call made to OR for Dr. Flores, she is in a case right now. Left message for call back.
== END 2020-08-05 14:35 | disposition home or self-care (01) ==
LOC: ER 09:36 → 2ND 09:51
PROVIDERS: Emergency Medicine; Internal Medicine Adolescent Medicine; Orthopaedic Surgery; Admitting Provider Internal Medicine Adolescent Medicine; Emergency Provider Emergency Medicine; Visit Provider Internal Medicine Adolescent Medicine
PROC: (CPT 20692; principal; 2020-08-04 12:45)
DX: S82.871A Displaced pilon fracture of right tibia, initial encounter for closed fracture (principal); V48.5XXA Car driver injured in noncollision transport accident in traffic accident, initial encounter; Y92.413 State road as the place of occurrence of the external cause; I10 Essential (primary) hypertension; E78.5 Hyperlipidemia, unspecified; E03.9 Hypothyroidism, unspecified; Z72.0 Tobacco use; Z79.899 Other long term (current) drug therapy
CPT/HCPCS: 20692; 27825; 29515; 36415; 73590; 73600; 73610; 73700; 76000; 80048; 80053; 82306; 83735; 85025; 85610; 85730; 86328; 96374; 96375; 97162; 99285; C1713; G0378; J2405

== ENCOUNTER → 2020-08-13 14:13 | Outpatient (CLI) | payer MEDICARE, MEDICAID, SELFPAY ==
--- NOTE | 2020-08-13 14:22 | XR_ITS ---
PROCEDURE: XR ANKLE RT MIN 3V CLINICAL INDICATION: s/p RT ankle Follow-up fracture COMPARISON: CR XR ANKLE RT MIN 3V from 08/03/2020 CR XR ANKLE RT 2V from 08/04/2020 FINDINGS: There is an external fixator in place with a stabilizing shay at the calcaneus. There is good alignment of the comminuted distal tibial fracture with intra-articular involvement. No significant callus formation evident. IMPRESSION: Good alignment comminuted distal tibial fracture with external fixator device in place Dictated by: Nnamdi Dickerson MD 08/13/2020 15:56 Nnamdi Dickerson MD in [place] 08/13/2020 15:56
== END ==
PROVIDERS: PCP Internal Medicine Adolescent Medicine; Visit Provider Orthopaedic Surgery
DX: S82.301A Unspecified fracture of lower end of right tibia, initial encounter for closed fracture (principal)
CPT/HCPCS: 73610

== ENCOUNTER 2020-08-18 17:23 | Observation (INO) | payer MEDICARE, MEDICAID, SELFPAY ==
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
[2020-08-18 17:51] VITALS: BP 127/79; PULSE 118; RESP 19; TEMP 36.6; O2SAT 98; BMI 33.1
[2020-08-18 18:05] LABS: Basophils # 0.1 K/mm3 (0-0.2); Eosinophils # 0.3 K/mm3 (0.0-0.4); Eosinophils % 4.7 % (0.1-12.0); Hematocrit 38.5 % (42.0-52.0); Hemoglobin 12.6 g/dL (14.1-18.0); Lymphocytes # 2.2 K/mm3 (0.7-4.5); Lymphocytes % 33.6 % (10-50); Mean Corpuscular HGB Conc 32.8 g/dL (31.8-35.4); Mean Corpuscular Hemoglobin 29.1 pg (27.0-31.2); Mean Corpuscular Volume 88.7 fl (80-94); Mean Platelet Volume 7.5 fl (7.4-10.4); Monocytes # 0.4 K/mm3 (0.1-1.0); Monocytes % 5.8 % (1.7-9.3); Neutrophils # 3.5 K/mm3 (1.8-7.8); Neutrophils % 54.8 % (37.0-80.0); Platelet Count 432 K/mm3 (142-424); Red Blood Count 4.34 M/mm3 (4.60-6.20); White Blood Count 6.4 K/mm3 (4.8-10.8)
[2020-08-18 18:10] LABS: Chloride 107 mmol/L (98-107); Sodium 140 mmol/L (136-145)
[2020-08-18 18:11] LABS: Potassium 3.9 mmoL/L (3.5-5.1)
[2020-08-18 18:13] LABS: Alanine Aminotransferase 95 U/L (12-78); Alkaline Phosphatase 55 U/L (38-126); Anion Gap 13.9 mEq/L (5-15); Aspartate Amino Transferase 59 U/L (17-59); Bilirubin,Total 0.6 mg/dl (0.2-1.3); Blood Urea Nitrogen 19 mg/dl (9-20); Carbon Dioxide 23 mmol/L (22.0-30.0); Creatinine Clearance Estimated 137 mL/min (50-200); Estimated Glomerular Filt Rate 99 ml/min (>60); GFR (African American) 120 ML/MIN (>60)
[2020-08-18 18:14] LABS: Albumin Level 4.8 g/dl (3.5-5.0); Albumin/Globulin Ratio 1.3 (1.1-1.8); Calcium 9.9 mg/dl (8.4-10.2); Globulin 3.7 g/dL (1.3-3.2); Glucose 160 mg/dl (74-100); Total Protein,Serum 8.5 g/dl (6.3-8.2)
[2020-08-18 18:18] LABS: C-Reactive Protein 5.5 mg/L (0-4)
[2020-08-18 19:52] LABS: Erythrocyte Sedimentation Rate 39 mm/hr (0-20)
[2020-08-18 20:00] VITALS: BP 129/74; PULSE 93; RESP 17; TEMP 36.4; O2SAT 98
--- NOTE | 2020-08-18 21:15 | PC.NURSE ---
HE IS AOX4, ABLE TO MAKE NEEDS KNOWN TO STAFF, EXTERNAL FIXATION TO RLE, HE TOLERATED DIET WELL AND WAS INSTRUCTED TO NOT EAT AFTER MIDNIGHT, VITAL SIGNS HAVE BEEN STABLE NO NEEDS VOICED.
[2020-08-19] VITALS (21 sets, daily range): BP systolic 99–137; BP diastolic 54–86; PULSE 76–118; RESP 16–18; TEMP 36.4–37.9; O2SAT 91–97; BMI 33.5
--- NOTE | 2020-08-19 03:13 | PC.NURSE ---
pt is AxOx4, has been awake t/o most of shift so far, has complained of pain one time and was treated per SEP, right leg has remained elevated t/o shift, thigh high scud on left leg, IS is at bedside, pt has been educated on the use of it and verbalizes understanding, lungs CTA and remains on room air
--- NOTE | 2020-08-19 07:44 | HMH.PHAVTE ---
[facility] Pharmacy VTE Monitoring - Patient Demographics Admission date: 08/19/20 Report Date: 08/19/20 Time: 07:44 Allergies/Adverse Reactions: Patient Allergies milk [MILK] Allergy (Unknown, Verified 08/13/20 14:39) yeast, dried [YEAST] Allergy (Unknown, Verified 08/13/20 14:39) Height: 1.7 m Weight: 96.814 kg Patient Problems: Current Active Problems Fracture of tibia, distal, right, closed (Acute) Hypertension (Acute) Smokeless tobacco use (Acute) Class II obesity (Chronic) - VTE Risk Labs: VTE Related Lab Results Hgb 12.6 g/dL (14.1-18.0) L 08/18/20 17:56 Hct 38.5 % (42.0-52.0) L 08/18/20 17:56 Plt Count 432 K/mm3 (142-424) H 08/18/20 17:56 BUN 19 mg/dl (9-20) 08/18/20 17:56 Creatinine 0.80 mg/dl (0.66-1.25) 08/18/20 17:56 Estimated Creat Clear 137 mL/min (50-200) 08/18/20 17:56 Was VTE Risk Assessment Performed: Yes VTE Risk Level: Low Risk Clinical Trial Participant: No - Prophylaxis VTE Prophylaxis Ordered?: Yes Types of VTE Prophylaxis: IPCS Knee High
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
--- NOTE | 2020-08-19 09:02 | P.PN_ITS ---
Subjective Date: 08/19/20 Time: 08:30 Principal diagnosis: R tibial pilon fracture Interval history: The patient is doing well this morning, no complaints. No f/c, no n/v/d, no cp/soa. PN: Obj Ex Vital signs: Temp Pulse Resp BP Pulse Ox 98.0 F 77 18 130/73 97 08/19/20 08:00 08/19/20 08:00 08/19/20 08:50 08/19/20 08:00 08/19/20 08:00 - Constitutional no acute distress - Routine HEENT Exam Head: Present: normocephalic Eye: Present: EOMI ENT: Present: mucous membranes moist - Routine Neck Exam Present: supple, trachea midline - Routine Respiratory Exam Absent: respiratory distress, wheezes - Routine Cardiovascular Exam Present: RRR - Routine Abdominal Exam Present: soft. Absent: tenderness - Routine Extremities Exam Comments: Awake, alert, oriented, in no obvious distress patient NWB RLE in a wheelchair external fixator in place RLE, dressings intact some sanguinous drainage on dressings around heel, dried all dressings removed, ex-fix intact w/pins intact no erythema around any pin sites, no drainage from pin sites; no purulence or foul odor wiggles toes, DF/PF RLE impaired due to ex-fix SILT distally RLE R calf soft, compressible, non-tender palpable pedal pulses RLE, foot pink/warm mild soft tissue swelling R foot/ankle, improved from last exam - Routine Skin Exam Present: warm - Routine Neurological Exam Present: alert, oriented X3, moving all extremities, normal tone, vision grossly intact, hearing grossly intact, normal speech. Absent: sensory deficit, motor d eficit, altered mental status Progress Note: A&P (1) Fracture of tibia, distal, right, closed Status: Acute (2) Hypertension Status: Acute (3) Smokeless tobacco use Status: Acute (4) Class II obesity Status: Chronic Assessment and Plan for All Diagnoses:: 59yo M with closed but highly comminuted fracture R distal tibia (pilon fx); DOI 08/03/20. S/p closed reduction with external fixator application 08/04/20. Admitted for ex-fix removal and ORIF R pilon fracture today. -- up as tolerated with assistance; NWB RLE -- keep RLE elevated at all times -- SCD LLE -- encourage IS 10x/hr while awake -- continue home meds -- reamin NPO, continue IVF -- 2g ancef IV health information manager to OR for pre-op prophy -- to OR today for ORIF; Dr. Bernardo will be assisting
--- NOTE | 2020-08-19 09:19 | PC.NURSE ---
Pt off floor for surgery @ [id number].
--- NOTE | 2020-08-19 10:39 | P.PN_ITS ---
[facility] Anesthesia Checklist - Patient Identification Patient Identification: Arm Band, Verbal (Name & ) - Structural Data Admitted From: Home Planned Operative Procedure/s: ORIF right tibia Consent for Planned Operative Procedure(s) Verified: Yes Verified Documents: Surgical Consent - Additional verifications Anesthesia Reactions: No Hx Blood Transfusions: No Blood Transfusion Reaction: No - Airway Assessment Dentition: Dentures-poor fitting - Neurological Assessment Level of Consciousness: Awake - Anesthesia Plan Anesthesia Risk discussed: Yes Anesthesia Plan: Verified Anesthesia Type: General w/block [facility] History I have reviewed the patient's past medical history: Yes Medical History: Reports:: Asthma, Hyperlipidemia, Hypertension Denies:: Diabetes Mellitus Type 1, Diabetes Mellitus Type 2, Internal Pacemaker, Lung Disease, Seizures *Have you ever received a pneumonia vaccine?: Yes *Have you received a flu vaccine this season?: Yes Other Medical History: Reports: Arthritis, Hypothyroidism. Denies: Blood Transfusion Reaction Anesthesia experience/problems:: none Laterality Cases: Right: Arthroscopy Hip, Arthroscopy Shoulder Other Surgeries: Yes: Colonoscopy, EGD, Thyroidectomy. No: Pacemaker - *Social History Last grade of school completed: High school graduate Smoking Status: Never smoker Tobacco Type: smokeless tobacco # Packs/Day (cigarettes): 0 Alcohol Intake: never Substance Use Type: denies use *Occupational Status:: retired Household Members: children *Travel in the last 8 weeks: None Family Hx:: No significant family history
--- NOTE | 2020-08-19 14:16 | SW/DCPLANNER ---
Addendum entered by Shellie Sim 08/20/20 13:04: [employer] is NOT running today due to weather. I have attempted to contact patient multiple times with no answer. Addendum entered by Shellie Sim 08/20/20 11:37: I have attempted to contact this patients daughter (Debby Felix [phone]) with no answer and VM not set up at this time. I will continue to contact Debby. Dr House has stated this patient is ready for discharge today. Addendum entered by Lindsey Jay 08/19/20 14:35: CORRECTION: PATIENT WENT HOME WITH A ROLLING WALKER.. NOT A WHEELCHAIR.. Original Note: PATIENT WAS ADMITTED TO AND OBSERVATION STATUS LAST EVENING WHEN HE STATED HE HAD TRANSPORTATION ISSUES AND WAS SCHEDULED FOR SURGERY AT 9:00 AM THIS MORNING... HE IS HAVING AND ORIF OF HIS RIGHT ANKLE THIS MORNING.. HIS PLAN IS TO RETURN HOME AFTER SURGERY.. HE PLANS TO RETURN BACK HOME AND SAID HE HAS HELP... HE WAS SET UP WITH A WHEELCHAIR WHEN HE DISCHARGED. NO SURE IF HE IS GOING TO NEED ANY HOME HEALTH SERVICES AT THIS TIME BUT SHOULD BE SOON... WILL FOLLOW UP WITH PATIENT ONCE MD CLEARS HIM TO DISCHARGE...
--- NOTE | 2020-08-19 15:41 | XR_ITS ---
PROCEDURE: XR ANKLE RT 2V CLINICAL INDICATION: orif in or COMPARISON: No exams were available for comparison FINDINGS: Fluoroscopy time: 2.7 minutes. Multiple images are submitted with the C-arm demonstrating ORIF of the distal tibia with a medial lateral tibial bone plate placed with multiple cortical screws and a translucent fixator stabilizing the tibial fibular syndesmosis. The ankle mortise appears preserved. IMPRESSION: Good alignment status post ORIF distal tibia Dictated by: Nnamdi Dickerson MD 08/19/2020 20:00 Nnamdi Dickerson MD in OV 08/19/2020 20:00
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
--- NOTE | 2020-08-19 16:07 | HMH.ANESI ---
[facility] Anesthesia Record Part I Intake, IV Amount: 2,500 Estimated blood loss (mL): 250 Urine output (mL): 0 Blood Pressure: 125/76 SaO2: 96 Pulse Rate: 97 Respiratory Rate: 16 Temperature: 100.2 F Patient is:: Drowsy, Stable Stable to PACU at:: 16:00
--- NOTE | 2020-08-19 16:30 | XR_ITS ---
PROCEDURE: XR ANKLE RT MIN 3V CLINICAL INDICATION: s/p ORIF R ankle Follow-up surgery COMPARISON: CR XR ANKLE RT MIN 3V from 08/03/2020 CR XR ANKLE RT 2V from 08/04/2020 CR XR ANKLE RT MIN 3V from 08/13/2020 FINDINGS: Status post ORIF distal tibia. There is both a medial and lateral bone plate with multiple cortical screws as well as at least 2 screws extending anterior to posterior. The lateral tibial bone plate has at the anterior arm inferiorly with 2 cortical screws. Translucent fixator is present at the tib fib region stabilizing the tibial fibular syndesmosis. The ankle mortise appears preserved. There is a splint in place. IMPRESSION: Good alignment status post ORIF distal tibia Dictated by: Nnamdi Dickerson MD 08/19/2020 19:53 Nnamdi Dickerson MD in OV 08/19/2020 19:53
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
[2020-08-20] VITALS (9 sets, daily range): BP systolic 143–173; BP diastolic 86–97; PULSE 97–115; RESP 16–20; TEMP 36.6–38.2; O2SAT 90–99; BMI 33.6
--- NOTE | 2020-08-20 04:24 | PC.NURSE ---
Pt has been pleasant and cooperative this shift. A&O X4. Pt has complained of pain X 3 thus far this shift and has been medicated per MAR with favorable results. Pt is on room air with sats. >90%. Lungs CTA. No edema noted. RLE surgical dressing is C/D/I. Pt uses the urinal to void clear, yellow urine without issue. No BM this shift. 20 G peripheral IV in the RT AC is patent and infusing LR @ 75 ML/HR. VSS. Call light within reach. Will continue to monitor.
[2020-08-20 05:02] LABS: Basophils % 0.3 % (0.1-2.0); Eosinophils # 0.1 K/mm3 (0.0-0.4); Eosinophils % 0.6 % (0.1-12.0); Hematocrit 32.3 % (42.0-52.0); Hemoglobin 10.3 g/dL (14.1-18.0); Lymphocytes # 1.1 K/mm3 (0.7-4.5); Lymphocytes % 10.1 % (10-50); Mean Corpuscular Hemoglobin 28.7 pg (27.0-31.2); Mean Corpuscular Volume 89.8 fl (80-94); Mean Platelet Volume 7.8 fl (7.4-10.4); Monocytes # 0.8 K/mm3 (0.1-1.0); Monocytes % 7.4 % (1.7-9.3); Neutrophils # 9.1 K/mm3 (1.8-7.8); Neutrophils % 81.8 % (37.0-80.0); Platelet Count 392 K/mm3 (142-424); Red Cell Distribution Width 14.2 % (11.5-17.5); White Blood Count 11.1 K/mm3 (4.8-10.8)
[2020-08-20 05:15] LABS: Chloride 104 mmol/L (98-107); Sodium 140 mmol/L (136-145)
[2020-08-20 05:18] LABS: Blood Urea Nitrogen 15 mg/dl (9-20); Carbon Dioxide 25 mmol/L (22.0-30.0); Creatinine Clearance Estimated 101 mL/min (50-200); Estimated Glomerular Filt Rate 69 ml/min (>60); GFR (African American) 83 ML/MIN (>60); Glucose 134 mg/dl (74-100)
--- NOTE | 2020-08-20 08:41 | P.PN_ITS ---
Internal Medicine - PN: Subj *Date: 08/20/20 *Time: 08:41 Interval history: Internal medicine follow-up note: Patient had successful reduction of fracture with removal of hardware yesterday. He is awake, alert and eating breakfast this morning. Does complain that the leg is sore. Exam Vital signs and Labs for Last 24 Hours: Temp Pulse Resp BP Pulse Ox 98.2 F 100 H 20 157/90 H 99 08/20/20 08:00 08/20/20 08:00 08/20/20 08:23 08/20/20 08:00 08/20/20 08:00 Laboratory Results - last 24 hr 08/20/20 04:37: WBC 11.1 H D, RBC 3.60 L, Hgb 10.3 L, Hct 32.3 L, MCV 89.8, MCH 28.7, MCHC 32.0, RDW 14.2, Plt Count 392, MPV 7.8, Neut % (Auto) 81.8 H, Lymph % (Auto) 10.1, [place] % (Auto) 7.4, Eos % (Auto) 0.6, Baso % (Auto) 0.3, Neut # (Auto) 9.1 H, Lymph # (Auto) 1.1, [place] # (Auto) 0.8, Eos # (Auto) 0.1, Baso # (Auto) 0.0 08/20/20 04:37: Sodium 140, Potassium 4.0, Chloride 104, Carbon Dioxide 25, Anion Gap 15.0, BUN 15, Creatinine 1.10 D, Estimated Creat Clear 101, Estimated GFR 69, Est GFR ( Amer) 83 D, Glucose 134 H, Calcium 9.0 I & O for Last 24 hours: Intake & Output 08/17/20 08/18/20 08/19/20 08/20/20 11:59 11:59 11:59 11:59 Intake Total 480 / 480 3799 / 3799 Output Total 1940 / 1940 1225 / 1225 Balance -1460 / -1460 2574 / 2574 Weight 213 lb 7 oz 214 lb 7 oz Narrative: Alert, pleasant. Oriented x3. Heart rate regular without murmurs. Lungs are clear, abdomen soft. Neurologic exam intact, extremity exam unremarkable except for splinted right lower extremity. Assessment and Plan (1) Fracture of tibia, distal, right, closed Status: Acute Qualifiers: Encounter type: initial encounter Fracture morphology: unspecified fracture morphology Qualified Code(s): S82.301A - Unspecified fracture of lower end of right tibia, initial encounter for closed fracture Category: Medical Code(s): S82.301A - Unspecified fracture of lower end of right tibia, initial encounter for closed fracture (2) Hypertension Status: Acute Category: Medical Code(s): I10 - Essential (primary) hypertension (3) Smokeless tobacco use Status: Acute Category: Social Hx Code(s): Z72.0 - Tobacco use (4) Class II obesity Status: Chronic Category: Medical Code(s): E66.9 - Obesity, unspecified - Assessment and plan all Dx Assessment and Plan for all problems:: Patient tolerated operative procedure well. Blood pressure is very slightly elevated this morning but patient is in a little bit of pain. We will watch carefully. No other concerns from my perspective.
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
--- NOTE | 2020-08-20 12:02 | P.PN_ITS ---
Subjective Date: 08/20/20 Time: 11:00 Principal diagnosis: R tibial pilon fracture Interval history: The patient is doing well this morning, though he reports soreness in the right ankle. When I enter the room he is sleeping and appears comfortable, lying with the right ankle flat on the bed, not elevated or on a pillow. He is lying with the hip and knee flexed and the hip externally rotated in a frog-leg position. When I awaken him he reports severe pain and an inability to elevate the leg because it hurts. It is come to my attention that he is being seen by a pain management clinic in [place], something he has not disclosed to me. A [employer] report was run on him today and it is discovered he received 120 Pecos a few days after his external fixator was placed. He says he still has 100 of these pills left. PN: Obj Ex Vital signs: Temp Pulse Resp BP Pulse Ox 98.2 F 100 H 16 157/90 H 99 08/20/20 08:00 08/20/20 08:00 08/20/20 11:45 08/20/20 08:00 08/20/20 08:00 - Constitutional no acute distress - Routine HEENT Exam Head: Present: normocephalic Eye: Present: EOMI ENT: Present: mucous membranes moist - Routine Neck Exam Present: trachea midline - Routine Respiratory Exam Absent: respiratory distress, wheezes - Routine Cardiovascular Exam Present: RRR - Routine Abdominal Exam Present: soft. Absent: tenderness - Routine Extremities Exam Comments: splint intact RLE, no strikethrough RLE not elevated toes pink, warm, sensation intact; wiggles toes R calf proximal to splint warm, soft, non-tender - Routine Skin Exam Present: warm - Routine Neurological Exam Present: alert, oriented X3, moving all extremities, normal tone, vision grossly intact, hearing grossly intact, normal speech. Absent: sensory deficit, motor deficit, altered mental status Progress Note: A&P (1) Fracture of tibia, distal, right, closed Status: Acute (2) Hypertension Status: Acute (3) Smokeless tobacco use Status: Acute (4) Class II obesity Status: Chronic Assessment and Plan for All Diagnoses:: 59yo M POD 1 s/p removal of external fixator RLE + ORIF R tibial pilon fracture -- continue PT/OT -- NWB RLE -- importance of elevation of the R leg was emphasized to the patient -- continue to ice R ankle frequently --The patient is medically and surgically appropriate for discharge home today. Transportation has become an issue so this was discussed with care management, who will work with the patient on a solution. --I will not be sending any pain medication home with the patient at this time, but I will provide a prescription for aspirin for DVT prophylaxis. He is to take his Pecos at home until they are gone; he says he has at least 100 pills left. When these are gone, I will refill his pain medication. I will also contact the prescribing provider from the pain management clinic to alert them to his surgery, and will continue prescribing his pain medication until he is able to transfer back to his baseline Pecos from them. -- d/c home today, follow-up in clinic 08/28/20.
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
--- NOTE | 2020-08-21 09:04 | P.PN_ITS ---
[facility] Anesthesia Record Part II Discharge Time: 16:28 Destination: Medical Surgical Department PACU nurse assessment reviewed?: Yes Patient Condition:: Good Anesthesia Complications:: None Swallowing reflex intact?: Yes Cyanosis?: No Blood Pressure: 135/86 Pulse Rate: 101 Temperature: 100.2 F Mental Status: Alert & Oriented Pain level:: 0 Nausea and/or vomitting:: None Intake, IV Amount: 0
[2020-08-21 09:05] VITALS: BP 135/86; PULSE 101; TEMP 37.9
--- NOTE | 2020-09-10 13:08 | SW/DCPLANNER ---
SENT REFERRAL TO [facility] TO SEE IF [facility] CAN ACCEPT THIS PATIENT: PER DR ANN PATIENT IS NOT DOING WELL AT HOME AND IS IN NEED OF PLACEMENT.. WAITING TO HEAR BACK TO WHETHER PATIENT CAN USE HIS HUMANA/MCR OR WILL HAVE TO GO UNDER HIS MEDICAID BENEFIT....
== END 2020-08-20 13:58 | disposition home or self-care (01) ==
PROVIDERS: Admitting Provider Orthopaedic Surgery; PCP Internal Medicine Adolescent Medicine; Visit Provider Orthopaedic Surgery
PROC: (CPT 27827; principal; 2020-08-19 09:45)
DX: S82.871A Displaced pilon fracture of right tibia, initial encounter for closed fracture (principal); V48.5XXA Car driver injured in noncollision transport accident in traffic accident, initial encounter; Y92.413 State road as the place of occurrence of the external cause; I10 Essential (primary) hypertension; E03.9 Hypothyroidism, unspecified; Z72.0 Tobacco use; Z88.8 Allergy status to other drugs, medicaments and biological substances; Z79.899 Other long term (current) drug therapy
CPT/HCPCS: 27827; 27870; 36415; 73600; 73610; 76000; 80048; 80053; 85025; 85651; 86140; 97162; 97165; 97530; C1713; C1734; C1762; C1776; G0378; J0131; J2405; U0003

== ENCOUNTER → 2020-09-04 11:26 | Outpatient (CLI) | payer MEDICARE, MEDICAID, SELFPAY ==
--- NOTE | 2020-09-04 11:31 | XR_ITS ---
PROCEDURE: XR ANKLE RT MIN 3V CLINICAL INDICATION: RT distal tibia fracture Follow-up ORIF COMPARISON: CR XR ANKLE RT MIN 3V from 08/03/2020 CR XR ANKLE RT 2V from 08/04/2020 CR XR ANKLE RT MIN 3V from 08/13/2020 CR XR ANKLE RT MIN 3V from 08/19/2020 FINDINGS: Good alignment status post ORIF distal tib fib fracture. Lateral and medial tibial bone plates remain in place with good alignment. Posterior splint is in place. Overall no significant change IMPRESSION: No change status post ORIF distal tib fib fracture Dictated by: Nnamdi Dickerson MD 09/04/2020 16:02 Nnamdi Dickerson MD in [facility] 09/04/2020 16:02
--- NOTE | 2020-09-09 10:10 | SW/DCPLANNER ---
ATTEMPTED TO CALL MR [facility] THIS MORNING TO DISCUSS SOME DISCHARGE PLANNING... ACCORDING TO DR ANN, HE HAS NOT BEEN DOING WELL AT HOME AND THINKING HE MAY NEED PLACEMENT... I HAVE ASKED HIM TO CALL ME BACK IF HE IS INTERESTED IN SKILLED PLACEMENT..
== END ==
PROVIDERS: PCP Internal Medicine Adolescent Medicine; Visit Provider Orthopaedic Surgery
DX: S82.301A Unspecified fracture of lower end of right tibia, initial encounter for closed fracture (principal)
CPT/HCPCS: 73610

== ENCOUNTER → 2020-09-11 14:02 | Outpatient (CLI) | payer MEDICARE, MEDICAID, SELFPAY ==
[2020-09-11 14:54] LABS: Basophils # 0.1 K/mm3 (0-0.2); Basophils % 1.1 % (0.1-2.0); Eosinophils # 0.4 K/mm3 (0.0-0.4); Eosinophils % 4.8 % (0.1-12.0); Hematocrit 35.6 % (42.0-52.0); Hemoglobin 11.4 g/dL (14.1-18.0); Lymphocytes # 1.7 K/mm3 (0.7-4.5); Lymphocytes % 19.8 % (10-50); Mean Corpuscular HGB Conc 32.2 g/dL (31.8-35.4); Mean Corpuscular Volume 86.9 fl (80-94); Mean Platelet Volume 7.3 fl (7.4-10.4); Monocytes # 0.4 K/mm3 (0.1-1.0); Neutrophils # 6.1 K/mm3 (1.8-7.8); Neutrophils % 70.4 % (37.0-80.0); Platelet Count 542 K/mm3 (142-424); Red Blood Count 4.09 M/mm3 (4.60-6.20); Red Cell Distribution Width 14.2 % (11.5-17.5); White Blood Count 8.6 K/mm3 (4.8-10.8)
[2020-09-11 15:18] LABS: Erythrocyte Sedimentation Rate 43 mm/hr (0-20)
[2020-09-11 15:40] LABS: Chloride 106 mmol/L (98-107); Potassium 4.3 mmoL/L (3.5-5.1); Sodium 140 mmol/L (136-145)
[2020-09-11 15:43] LABS: Anion Gap 14.3 mEq/L (5-15); Blood Urea Nitrogen 14 mg/dl (9-20); Calcium 9.8 mg/dl (8.4-10.2); Carbon Dioxide 24 mmol/L (22.0-30.0); Estimated Glomerular Filt Rate 86 ml/min (>60); GFR (African American) 105 ML/MIN (>60); Glucose 114 mg/dl (74-100)
[2020-09-11 15:48] LABS: C-Reactive Protein 11.9 mg/L (0-4)
== END ==
PROVIDERS: Visit Provider Orthopaedic Surgery
DX: L08.9 Local infection of the skin and subcutaneous tissue, unspecified (principal); T14.8XXA Other injury of unspecified body region, initial encounter; Z01.818 Encounter for other preprocedural examination; T14.8XXD Other injury of unspecified body region, subsequent encounter
CPT/HCPCS: 36415; 80048; 85025; 85651; 86140

== ENCOUNTER → 2020-09-14 10:33 | Outpatient (CLI) | payer MEDICARE, MEDICAID, SELFPAY ==
[2020-09-14 14:23] LABS: Coronavirus 19 IgG Antibody Negative (Negative); Coronavirus 19 IgM Antibody Negative (Negative)
== END ==
PROVIDERS: Visit Provider Orthopaedic Surgery
DX: T14.8XXD Other injury of unspecified body region, subsequent encounter (principal); Z01.818 Encounter for other preprocedural examination
CPT/HCPCS: 36415; 86328

== ENCOUNTER 2020-09-15 14:32 | Observation (INO) | payer MEDICARE, MEDICAID, SELFPAY ==
[2020-09-14 15:40] VITALS: BMI 34.4
[2020-09-15] VITALS (19 sets, daily range): BP systolic 114–149; BP diastolic 64–87; PULSE 78–103; RESP 16–20; TEMP 36.2–43; O2SAT 88–98; BMI 31.4
--- NOTE | 2020-09-15 14:51 | P.PN_ITS ---
[facility] Anesthesia Checklist - Patient Identification Patient Identification: Arm Band - Structural Data Admitted From: Home Planned Operative Procedure/s: I&D right Ankle Consent for Planned Operative Procedure(s) Verified: Yes Verified Documents: Surgical Consent, History and Physical - NPO Status Verified Time NPO: 00:00 - Additional verifications Anesthesia Reactions: No Hx Blood Transfusions: No Blood Transfusion Reaction: No - Airway Assessment C-Spine Mobility Assessed: Yes (mp2) TMJ Mobility Assessed: Yes Dentition: Poor Dentition - Neurological Assessment Level of Consciousness: Awake - Anesthesia Plan Anesthesia Risk discussed: Yes Anesthesia Plan: Verified ASA Class: III Anesthesia Type: General [facility] History I have reviewed the patient's past medical history: Yes Medical History: Reports:: Anxiety, Asthma, Gastroesophageal Reflux Disease(GERD), Hyperlipidemia, Hypertension Denies:: Cancer, Diabetes Mellitus Type 1, Diabetes Mellitus Type 2, Internal Pacemaker, Lung Disease, MRSA, Seizures *Have you ever received a pneumonia vaccine?: No *Have you received a flu vaccine this season?: No Other Medical History: Reports: Arthritis, Hypothyroidism. Denies: Blood Transfusion Reaction Anesthesia experience/problems:: nac Laterality Cases: Right: Arthroscopy Hip, Arthroscopy Shoulder, Other Other Surgeries: Yes: Colonoscopy, EGD, Thyroidectomy. No: Pacemaker Amputation: No Fractures: Yes - *Social History Smoking Status: Never smoker Tobacco Type: smokeless tobacco # Packs/Day (cigarettes): 0 Alcohol Intake: never Substance Use Type: denies use *Occupational Status:: retired Housing: house Household Members: children *Travel in the last 8 weeks: None Family Hx:: No significant family history
--- NOTE | 2020-09-15 15:29 | HMH.PHAINT ---
MEDICATION RECONCILIATION COMPLETED ON PATIENT USING EXTERNAL FILL HISTORY FROM PHARMACY. -VENKATESH KINNEY, CARLOSD
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
--- NOTE | 2020-09-15 15:58 | HMH.PHACONS ---
- Pharmacy Consult Date: 09/15/20 Time: 15:58 Referring provider: DR. ANN Reason for Consult:: VANCOMYCIN DOSING Allergies and ADEs:: Allergies Allergy/AdvReac Type Severity Reaction Status Date / Time milk [MILK] Allergy Unknown Verified 09/11/20 13:06 yeast, dried [YEAST] Allergy Unknown Verified 09/11/20 13:06 Home Medications:: Home Medications Medication Instructions Recorded Confirmed Type Fenofibrate 160 mg PO DAILY 04/12/18 09/14/20 History Levothyroxine Sodium 100 mcg PO DAILY 04/12/18 09/14/20 History [Levothyroxine 100mcg (0.1MG) Tab] Atorvastatin Calcium [Lipitor 20mg 20 mg PO HS 08/03/20 09/14/20 History Tab] Fluticasone Propionate [Flonase 2 spray NS DAILY 08/03/20 09/14/20 History Allergy Relief NS] Omeprazole [Omeprazole 20mg 20 mg PO DAILY 08/03/20 09/14/20 History Capsule] risperiDONE [Risperidone] 2 mg PO HS 08/03/20 09/14/20 History Ergocalciferol (Vitamin D2) 50,000 unit PO WEEKLY 08/18/20 09/14/20 History [Drisdol 50,000 units (1.25mg) capsule] lisinopriL [Zestril 10mg Tab] 10 mg PO DAILY 08/18/20 09/14/20 History Alendronate Sodium [Fosamax 70mg 70 mg PO WEEKLY 08/19/20 09/14/20 History Tablet] Icosapent Ethyl [Vascepa] 2 gm PO BID 08/19/20 09/15/20 History Tizanidine HCl [Zanaflex 4mg 4 mg PO TIDP PRN 08/19/20 09/14/20 History tab] Aspirin [Aspirin EC 325mg Tab] 325 mg PO DAILY 09/14/20 09/15/20 History clindamycin HCL [Clindamycin HCl] 300 mg PO TID 09/14/20 09/14/20 History Famotidine [Pepcid 20mg Tablet] 20 mg PO BID 09/15/20 09/15/20 History Hydrocodone/Acetaminophen 1 each PO Q6HP PRN 09/15/20 09/15/20 History [Hydrocodone-Acetamin 5-325 mg] Meloxicam [Mobic 15 mg tab] 15 mg PO DAILY 09/15/20 09/15/20 History Height: 1.7 m Weight: 99.79 kg Medical History: Reports:: Anxiety, Asthma, Gastroesophageal Reflux Disease(GERD), Hyperlipidemia, Hypertension Denies:: Cancer, Diabetes Mellitus Type 1, Diabetes Mellitus Type 2, Internal Pacemaker, Lung Disease, MRSA, Seizures Assessment and Plan - Assessment and plan all Dx Assessment and Plan for all problems:: Age: 60 yo Serum creatinine: 0.9 mg/dL Height: 67.0 Inches Weight (kg): 100 Assessment: IBW (kg): 66.10 Dosing wt(kg): 100 Estimated Creatinine clearance (ml/min): 82.6 CRCL method: Cockcroft and Gault using ibw(default). Drug selected: Vancomycin Loading dose (mg): 0 Vd (liters): 80.0 (factor used: 0.8 L/kg) Jordon (hr-1): 0.073 Half life (hrs): 9.50 Recommended dose: 1750 mg Interval: 12 hrs Infusion time (hrs): 2.0 Predicted peak (mcg/mL): 34.9 Predicted trough (mcg/mL): 16.82 Total body weight is being used for vancomycin dosing. Recommendations: Give Vancomycin 1750 mg q 12 hrs with an expected Cpeak of 34.9 mcg/ml and an expected Ctrough of 16.82 mcg/ml
--- NOTE | 2020-09-15 16:00 | PC.NURSE ---
Pt arrived to the floor at this time.
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
--- NOTE | 2020-09-15 16:44 | HMH.PTEV ---
Physical Therapy Evaluation Rehab PT IP Evaluation Start: 09/15/20 15:26 Freq: ONCE Status: Active Protocol: Document 09/15/20 16:37 PWEVE (Rec: 09/15/20 16:44 PWEVE [id number]) Subjective/History History History This is the initial IP PT evaluation for Anjel Langford. Pt is a 60 y/o male admitted to [facility] for I&D of R ankle ORIF . Pt had pilon fx which required ORIF. Wound became infected and required surgical debridement. Subjective Subjective Pt reports he has two children in and out at home, and has ex-girlfriend who helps out. Rehab PT IP Eval Objective Appearance Patient Behavior Appropriate,Cooperative Patient Orientation Person,Place,Time Difficulty following instructions none Speech Pattern Clear,Appropriate Ambulation Patient Able to Ambulate Yes Ambulation Observation IP General Gait Pattern Observation Decrease Weight Bear (R) Ambulation Distance (feet) 3 Ambulation Assistive Device Standard Walker Ambulation Ability Supervision/Stand by Balance Ability to Arise Able, uses arms to help Sitting Balance Steady, safe Standing Balance Unsteady Dynamic Sitting Balance Ability Good Dynamic Standing Balance Ability Fair Transfers Bed Transfer Ability Independent Sit to Stand Bed Transfer Ability Independent Rehab PT IP prob,goals,plan Problems Date of Evaluation: 09/15/20 PT IP Problems Transfers,Gait,Self care Rehab Potential Rehab Potential Fair Equipment Needs Assistive Devices Standard Walker,Rolling / Wheeled Walker Plan PT Intervention Plan Transfers,Gait,Self care, Therapeutic Exercise PT Plan Frequency BID Duration LOS Discharge Goals Ambulation Assistive Device Standard Walker,Rolling Walker Ambulation Distance (feet) 10 Discharge Plan PT Discharge Plan Pt would benefit from SNF placement for mobility training and wound care/vac management. Without skilled therapy and wound care pt is at increased risk for secondary infection, falls, deconditioning, and increased burden of care. G -code Required
--- NOTE | 2020-09-15 17:45 | P.PN_ITS ---
[facility] Anesthesia Record Part I Intake, IV Amount: 1,000 Estimated blood loss (mL): 5 Urine output (mL): 0 Blood Pressure: 140/77 SaO2: 90 Pulse Rate: 103 Respiratory Rate: 16 Temperature: 98.6 F Patient is:: Drowsy, Stable Stable to PACU at:: 15:10
[2020-09-16] VITALS (11 sets, daily range): BP systolic 100–143; BP diastolic 54–87; PULSE 57–91; RESP 16–18; TEMP 36.2–36.9; O2SAT 94–98; BMI 31.2
--- NOTE | 2020-09-16 04:10 | PC.NURSE ---
pt has rested off and on throughout shift, pt is alert and oriented and able to make needs known, pt has complained of severe pain which was treated with prn medication see emar, pt states the pain medication helped but when asked to rate pain the pain never went below a 8/10, right lower extremity remains elevated on pillow at this time with ice pack in place, pt able to wiggle toes, no edema noted to toes, difficult to check capillary refill d/t betadine, wound vac remains in place to surgical site as well as surgical dressing to right foot/leg, lungs remain clear, incentive spirometer at bedside, heart regular. iv patent, no distress noted at this time, vss will continue to monitor
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
[2020-09-16 07:40] LABS: Basophils # 0.1 K/mm3 (0-0.2); Basophils % 0.7 % (0.1-2.0); Eosinophils % 0.3 % (0.1-12.0); Hematocrit 33.4 % (42.0-52.0); Hemoglobin 10.4 g/dL (14.1-18.0); Lymphocytes # 1.3 K/mm3 (0.7-4.5); Lymphocytes % 15.2 % (10-50); Mean Corpuscular HGB Conc 31.2 g/dL (31.8-35.4); Mean Corpuscular Hemoglobin 27.7 pg (27.0-31.2); Mean Corpuscular Volume 88.8 fl (80-94); Mean Platelet Volume 8.5 fl (7.4-10.4); Monocytes # 0.4 K/mm3 (0.1-1.0); Monocytes % 4.9 % (1.7-9.3); Neutrophils # 6.5 K/mm3 (1.8-7.8); Platelet Count 406 K/mm3 (142-424); Red Blood Count 3.76 M/mm3 (4.60-6.20); Red Cell Distribution Width 14.3 % (11.5-17.5); White Blood Count 8.3 K/mm3 (4.8-10.8)
[2020-09-16 07:47] LABS: Anion Gap 13.3 mEq/L (5-15); Blood Urea Nitrogen 12 mg/dl (9-20); Carbon Dioxide 25 mmol/L (22.0-30.0); Chloride 107 mmol/L (98-107); Creatinine Clearance Estimated 102 mL/min (50-200); Estimated Glomerular Filt Rate 76 ml/min (>60); GFR (African American) 93 ML/MIN (>60); Glucose 144 mg/dl (74-100); Potassium 4.3 mmoL/L (3.5-5.1); Sodium 141 mmol/L (136-145)
[2020-09-16 07:53] LABS: C-Reactive Protein 10.6 mg/L (0-4)
--- NOTE | 2020-09-16 08:04 | P.PN_ITS ---
Internal Medicine - PN: Subj *Date: 09/16/20 *Time: 08:04 Interval history: Patient did well with surgery yesterday. Has some pain ongoing. Main concern today is disposition post discharge. Exam Vital signs and Labs for Last 24 Hours: Temp Pulse Resp BP Pulse Ox 98.4 F 91 H 16 143/76 H 95 09/16/20 04:00 09/16/20 04:00 09/16/20 04:00 09/16/20 04:00 09/16/20 04:00 Laboratory Results - last 24 hr 09/16/20 07:25: WBC 8.3, RBC 3.76 L, Hgb 10.4 L, Hct 33.4 L, MCV 88.8, MCH 27.7, MCHC 31.2 L, RDW 14.3, Plt Count 406, MPV 8.5, Neut % (Auto) 79.0, Lymph % (Auto) 15.2, [place] % (Auto) 4.9, Eos % (Auto) 0.3, Baso % (Auto) 0.7, Neut # (Auto) 6.5, Lymph # (Auto) 1.3, [place] # (Auto) 0.4, Eos # (Auto) 0.0, Baso # (Auto) 0.1 09/16/20 07:25: Sodium 141, Potassium 4.3, Chloride 107, Carbon Dioxide 25, Anion Gap 13.3, BUN 12, Creatinine 1.00, Estimated Creat Clear 102, Estimated GFR 76, Est GFR ( Amer) 93, Glucose 144 H, Calcium 9.0, C-Reactive Protein 10.6 H I & O for Last 24 hours: Intake & Output 09/13/20 09/14/20 09/15/20 09/16/20 11:59 11:59 11:59 11:59 Intake Total 1180 / 1180 Output Total 725 / 725 Balance 455 / 455 Weight 220 lb 199 lb 1 oz Microbiology Reports for the Last 24 Hours: Microbiology 09/15/20 11:45 Nasopharyngeal Coronavirus COVID-19 PCR - Final 09/15/20 Unknown Ankle,Right Gram Stain - Final Narrative: Patient is pleasant, alert. Extremely concerned about finances if he has to go to a rehab facility without insurance coverage. Cardiopulmonary assessment unremarkable. Neurologic exam intact. Limb examination per orthopedic service. Assessment and Plan (1) Wound dehiscence Status: Acute Category: Medical Code(s): T81.30XA - Disruption of wound, unspecified, initial encounter (2) Cellulitis Status: Acute Qualifiers: Site of cellulitis: unspecified site Qualified Code(s): L03.90 - Cellulitis, unspecified Category: Medical Code(s): L03.90 - Cellulitis, unspecified (3) Fracture of tibia, distal, right, closed Status: Acute Qualifiers: Encounter type: initial encounter Fracture morphology: unspecified fracture morphology Qualified Code(s): S82.301A - Unspecified fracture of lower end of right tibia, initial encounter for closed fracture Category: Medical Code(s): S82.301A - Unspecified fracture of lower end of right tibia, initial encounter for closed fracture (4) Hypertension Status: Acute Category: Medical Code(s): I10 - Essential (primary) hypertension (5) Smokeless tobacco use Status: Acute Category: Social Hx Code(s): Z72.0 - Tobacco use (6) Hypothyroid Status: Chronic Qualifiers: Hypothyroidism type: acquired Qualified Code(s): E03.9 - Hypothyroidism, unspecified Category: Medical Code(s): E03.9 - Hypothyroidism, unspecified (7) Class 1 obesity Status: Chronic Category: Medical Code(s): E66.9 - Obesity, unspecified - Assessment and plan all Dx Assessment and Plan for all problems:: Overall recovering well, blood pressure acceptable. If a suitable bed is found with in our service purview will be happy to follow patient as a rehab patient.
[2020-09-16 09:20] LABS: Hemoglobin A1C 5.4 % (4.0-6.0)
[2020-09-16 09:45] LABS: Erythrocyte Sedimentation Rate 47 mm/hr (0-20)
--- NOTE | 2020-09-16 09:59 | XR_ITS ---
PROCEDURE: XR CHEST PORTABLE PICC PLAC CLINICAL HISTORY: Confirm PICC line placement COMPARISON: CT CTAC CTA-CHEST from 03/02/2016 CR CXR CHEST(2 VIEWS-NOT PORTABLE) from 10/26/2016 CR XR CHEST PORTABLE from 06/10/2019 CR XR CHEST 2V from 01/28/2020 FINDINGS: The cardiomediastinal silhouette and pulmonary vascularity are within normal limits. The lungs are clear without infiltrates, suspicious nodules, or pleural effusions. Minimal left basilar atelectasis. A PICC line has been inserted by the right subclavian approach. The tip is in satisfactory position in the region of the superior vena cava IMPRESSION: A PICC line has been inserted by the right subclavian approach. The tip is in satisfactory position in the region of the superior vena cava Dictated by: Nnamdi Dickerson MD 09/16/2020 13:31 Nnamdi Dickerson MD in [place] 09/16/2020 13:31
--- NOTE | 2020-09-16 10:27 | HMH.ANESII ---
[facility] Anesthesia Record Part II Discharge Time: 15:50 Destination: Surgical Day Care (OP Surgery) PACU nurse assessment reviewed?: Yes Patient Condition:: Good Anesthesia Complications:: None Swallowing reflex intact?: Yes Cyanosis?: No Blood Pressure: 138/87 Pulse Rate: 80 Temperature: 97.1 F Mental Status: Alert & Oriented Pain level:: 5 Nausea and/or vomitting:: None Intake, IV Amount: 0
--- NOTE | 2020-09-16 10:50 | HMH.ORTHPN ---
Subjective Date: 09/16/20 Time: 10:00 Principal diagnosis: R ankle wound dehiscence Interval history: Patient is doing well this morning. He has discomfort in the ankle but is resting comfortably. His biggest concern is placement and whether or not her insurance will cover his residential stay. [facility] and we are awaiting insurance review. He has been seen this morning by physical therapy and is maintaining nonweightbearing on the right lower extremity. No fevers or chills, no numbness in the toes. No chest pain or shortness of breath. PN: Obj Ex Vital signs: Temp Pulse Resp BP Pulse Ox 97.1 F L 80 16 138/87 96 09/16/20 10:28 09/16/20 10:28 09/16/20 10:22 09/16/20 10:09/16/20 08:32 - Constitutional no acute distress, obese - Routine HEENT Exam Head: Present: normocephalic Eye: Present: EOMI ENT: Present: mucous membranes moist - Routine Neck Exam Present: supple, trachea midline - Routine Respiratory Exam Absent: respiratory distress, wheezes - Routine Cardiovascular Exam Present: RRR - Routine Abdominal Exam Present: soft. Absent: tenderness - Routine Extremities Exam Comments: RLE splint intact, no drainage wound vac R lateral ankle functioning, at 125mHg wiggles toes R foot, SILT +DF/PF/EHL RLE, splint hinders movement SILT distally RLE in all distributions skin pink, warm, BCR all digits palpable pedal pulses RLE - Routine Skin Exam Present: warm - Routine Neurological Exam Present: alert, oriented X3, moving all extremities, normal tone, vision grossly intact, hearing grossly intact, normal speech. Absent: sensory deficit, motor deficit, altered mental status - Routine Psychiatric Exam Present: normal affect Progress Note: A&P (1) Wound dehiscence Status: Acute (2) Cellulitis Status: Acute (3) Fracture of tibia, distal, right, closed Status: Acute (4) Hypertension Status: Acute (5) Smokeless tobacco use Status: Acute (6) Hypothyroid Status: Chronic (7) Class 1 obesity Status: Chronic Assessment and Plan for All Diagnoses:: 60yo M s/p R tibial pilon fracture 08/03/20 --> closed reduction with external fixator placement 08/04/20 removal of external fixator + ORIF R tibial pilon fracture 08/19/20 POD 1 s/p I&D R ankle + wound vac placement; DOS 09/15/20 -- continue vanc/zosyn, f/u wound cultures -- given exposed hardware, I would like to treat as infected and start PICC line with continued IV antibiotics on discharged. Specific antibiotic therapy will be based upon culture results and duration of treatment based on culture results, clinical response to therapy and lab results over time. -- continue wound vac at 125mmHg, do not remove; will need to be changed 2x per week starting Monday -- elevate RLE at all times -- PT for mobilization, NWB RLE -- continue home medications -- DVT prophy: SCDs, aspirin -- encourage IS 10x/hr while awake -- Dr. Reddy on consult for medical management -- care management consult for dispo planning; referral sent to SNF, awaiting insurance review
--- NOTE | 2020-09-16 16:10 | PC.NURSE ---
No acute changes. Pt was assisted up to chair by staff, tolerates activity well. Medicated per MAR for shooting pain in RLE. Pt has verbalized adequate relief from pain meds. Remains on room air. Lungs CTA. HR regular. Absent of edema. Abdomen soft, non-tender w/ active BS in all quads. Voiding per urinal independently. Dressing to RLE c/d/i. Wound vac in place. Cap refill <3 sec. Pt able to move toes freely. Bedside bath offered to pt, wishes to take one later tonight. Pt had PICC placed @ bedside to [facility] by Yane Tirado RN. Placement confirmed by CXR. VSS. Call kelley w/in reach.
[2020-09-17] VITALS (8 sets, daily range): BP systolic 112–146; BP diastolic 68–79; PULSE 56–75; RESP 14–22; TEMP 36.6–37; O2SAT 94–97; BMI 31.9
[2020-09-17 01:32] LABS: Vancomycin,Trough 8.4 ug/mL (5.0-10.0)
--- NOTE | 2020-09-17 03:11 | PC.NURSE ---
Pt A&O x4 and has slept very little through the night. Pt has c/o pain in right foot consistently. Morphine and oxy have been given per mar and provide some relief. Lungs are CTA, on room air. IV and PICC patent, LR @ 75. Surgical drsg on right foot c/d/i. Cap refill <3, pt able to move toes on command. Wound vac in place, cont. @ 125. No drainage visible. Bowel sounds x4, abd soft and nontender. Pt voiding in urinal, UOP yellow/clear. Call light in reach, no concerns at this time.
[2020-09-17 06:49] LABS: Basophils # 0.1 K/mm3 (0-0.2); Basophils % 1.2 % (0.1-2.0); Eosinophils # 0.2 K/mm3 (0.0-0.4); Eosinophils % 2.8 % (0.1-12.0); Hematocrit 32.9 % (42.0-52.0); Lymphocytes % 24.9 % (10-50); Mean Corpuscular HGB Conc 30.5 g/dL (31.8-35.4); Mean Corpuscular Hemoglobin 27.9 pg (27.0-31.2); Mean Corpuscular Volume 91.5 fl (80-94); Mean Platelet Volume 7.4 fl (7.4-10.4); Monocytes # 0.4 K/mm3 (0.1-1.0); Monocytes % 4.6 % (1.7-9.3); Neutrophils # 5.3 K/mm3 (1.8-7.8); Neutrophils % 66.4 % (37.0-80.0); Platelet Count 376 K/mm3 (142-424); Red Blood Count 3.59 M/mm3 (4.60-6.20); Red Cell Distribution Width 14.6 % (11.5-17.5)
[2020-09-17 07:05] LABS: Blood Urea Nitrogen 14 mg/dl (9-20); Calcium 8.6 mg/dl (8.4-10.2); Carbon Dioxide 26 mmol/L (22.0-30.0); Chloride 108 mmol/L (98-107); Creatinine Clearance Estimated 104 mL/min (50-200); Estimated Glomerular Filt Rate 76 ml/min (>60); GFR (African American) 93 ML/MIN (>60); Glucose 90 mg/dl (74-100); Sodium 141 mmol/L (136-145)
--- NOTE | 2020-09-17 10:15 | HMH.ORTHPN ---
Subjective Date: 09/17/20 Time: 09:30 Principal diagnosis: R ankle wound dehiscence/infection Interval history: No acute events reported overnight. Vitals remained stable, patient afebrile. Scant drainage in the VAC canister. Preliminary Gram stain results are showing gram-negative rods, no speciation or sensitivities yet. Patient remains on Vanco and Zosyn. Currently using smokeless tobacco. PN: Obj Ex Vital signs: Temp Pulse Resp BP Pulse Ox 97.9 F 75 14 128/68 97 09/17/20 07:32 09/17/20 07:32 09/17/20 08:07 09/17/20 07:32 09/17/20 07:32 - Constitutional no acute distress - Routine HEENT Exam Head: Present: normocephalic Eye: Present: EOMI ENT: Present: mucous membranes moist - Routine Neck Exam Present: trachea midline - Routine Respiratory Exam Absent: respiratory distress, wheezes - Routine Cardiovascular Exam Present: RRR - Routine Abdominal Exam Present: soft. Absent: tenderness - Routine Extremities Exam Comments: RLE splint intact, no drainage wound vac R lateral ankle functioning, at 125mHg wiggles toes R foot, SILT +DF/PF/EHL RLE, splint hinders movement SILT distally RLE in all distributions skin pink, warm, BCR all digits palpable pedal pulses RLE - Routine Skin Exam Present: warm - Routine Neurological Exam Present: alert, oriented X3, moving all extremities, normal tone, vision grossly intact, hearing grossly intact, normal speech. Absent: sensory deficit, motor deficit, altered mental status Progress Note: A&P (1) Wound dehiscence Status: Acute (2) Cellulitis Status: Acute (3) Fracture of tibia, distal, right, closed Status: Acute (4) Hypertension Status: Acute (5) Smokeless tobacco use Status: Acute (6) Hypothyroid Status: Chronic (7) Class 1 obesity Status: Chronic Assessment and Plan for All Diagnoses:: 60yo M s/p R tibial pilon fracture 08/03/20 --> closed reduction with external fixator placement 08/04/20 removal of external fixator + ORIF R tibial pilon fracture 08/19/20 POD 2 s/p I&D R ankle + wound vac placement; DOS 09/15/20 -- continue vanc/zosyn, f/u wound cultures; gram stain with GNR, speciation/sensitivity pending -- PICC line placed yesterday, given positive gram stain anticipate several weeks of antibiotic therapy. Because hardware was seen during I&D I will likely presume osteomyelitis and treat as such; likely 6 weeks of antibiotic therapy. -- continue wound vac at 125mmHg, do not remove; will need to be changed 2x per week starting tomorrow -- elevate RLE at all times -- PT for mobilization, NWB RLE -- continue home medications -- DVT prophy: SCDs, aspirin -- encourage IS 10x/hr while awake -- Dr. Reddy on consult for medical management -- care management consult for dispo planning; referral sent to SNF, awaiting insurance review
--- NOTE | 2020-09-17 11:09 | HMH.PHACONS ---
- Pharmacy Consult Date: 09/17/20 Time: 11:10 Referring provider: DR. ANN Reason for Consult:: VANCOMYCIN TROUGH LEVEL Allergies and ADEs:: Allergies Allergy/AdvReac Type Severity Reaction Status Date / Time milk [MILK] Allergy Unknown Verified 09/11/20 13:06 yeast, dried [YEAST] Allergy Unknown Verified 09/11/20 13:06 Home Medications:: Home Medications Medication Instructions Recorded Confirmed Type Fenofibrate 160 mg PO DAILY 04/12/18 09/15/20 History Levothyroxine Sodium 100 mcg PO DAILY 04/12/18 09/15/20 History [Levothyroxine 100mcg (0.1MG) Tab] Atorvastatin Calcium [Lipitor 20mg 20 mg PO HS 08/03/20 09/15/20 History Tab] Fluticasone Propionate [Flonase 2 spray NS DAILY 08/03/20 09/15/20 History Allergy Relief NS] Omeprazole [Omeprazole 20mg 20 mg PO DAILY 08/03/20 09/15/20 History Capsule] risperiDONE [Risperidone] 2 mg PO HS 08/03/20 09/15/20 History Ergocalciferol (Vitamin D2) 50,000 unit PO WEEKLY 08/18/20 09/15/20 History [Drisdol 50,000 units (1.25mg) capsule] lisinopriL [Zestril 10mg Tab] 10 mg PO DAILY 08/18/20 09/15/20 History Alendronate Sodium [Fosamax 70mg 70 mg PO WEEKLY 08/19/20 09/15/20 History Tablet] Icosapent Ethyl [Vascepa] 2 gm PO BID 08/19/20 09/15/20 History Tizanidine HCl [Zanaflex 4mg 4 mg PO TIDP PRN 08/19/20 09/15/20 History tab] Aspirin [Aspirin EC 325mg Tab] 325 mg PO DAILY 09/14/20 09/15/20 History clindamycin HCL [Clindamycin HCl] 300 mg PO TID 09/14/20 09/15/20 History Famotidine [Pepcid 20mg Tablet] 20 mg PO BID 09/15/20 09/15/20 History Hydrocodone/Acetaminophen 1 each PO Q6HP PRN 09/15/20 09/15/20 History [Hydrocodone-Acetamin 5-325 mg] Meloxicam [Mobic 15 mg tab] 15 mg PO DAILY 09/15/20 09/15/20 History Height: 1.7 m Weight: 92.278 kg Laboratory Results:: Laboratory Results - last 24 hr 09/17/20 00:40: Vancomycin Trough 8.4 09/17/20 06:30: WBC 8.0, RBC 3.59 L, Hgb 10.0 L, Hct 32.9 L, MCV 91.5, MCH 27.9, MCHC 30.5 L, RDW 14.6, Plt Count 376, MPV 7.4, Neut % (Auto) 66.4, Lymph % (Auto) 24.9, [place] % (Auto) 4.6, Eos % (Auto) 2.8, Baso % (Auto) 1.2, Neut # (Auto) 5.3, Lymph # (Auto) 2.0, [place] # (Auto) 0.4, Eos # (Auto) 0.2, Baso # (Auto) 0.1 09/17/20 06:30: Sodium 141, Potassium 4.0, Chloride 108 H, Carbon Dioxide 26, Anion Gap 11.0, BUN 14, Creatinine 1.00, Estimated Creat Clear 104, Estimated GFR 76, Est GFR ( Amer) 93, Glucose 90 D, Calcium 8.6 Medical History: Reports:: Anxiety, Asthma, Gastroesophageal Reflux Disease(GERD), Hyperlipidemia, Hypertension Denies:: Cancer, Diabetes Mellitus Type 1, Diabetes Mellitus Type 2, Internal Pacemaker, Lung Disease, MRSA, Seizures Assessment and Plan (1) Wound dehiscence Status: Acute Category: Medical Code(s): T81.30XA - Disruption of wound, unspecified, initial encounter (2) Cellulitis Status: Acute Qualifiers: Site of cellulitis: unspecified site Qualified Code(s): L03.90 - Cellulitis, unspecified Category: Medical Code(s): L03.90 - Cellulitis, unspecified (3) Fracture of tibia, distal, right, closed Status: Acute Qualifiers: Encounter type: initial encounter Fracture morphology: unspecified fracture morphology Qualified Code(s): S82.301A - Unspecified fracture of lower end of right tibia, initial encounter for closed fracture Category: Medical Code(s): S82.301A - Unspecified fracture of lower end of right tibia, initial encounter for closed fracture (4) Hypertension Status: Acute Category: Medical Code(s): I10 - Essential (primary) hypertension (5) Smokeless tobacco use Status: Acute Category: Social Hx Code(s): Z72.0 - Tobacco use (6) Hypothyroid Status: Chronic Qualifiers: Hypothyroidism type: acquired Qualified Code(s): E03.9 - Hypothyroidism, unspecified Category: Medical Code(s): E03.9 - Hypothyroidism, unspecified (7) Class 1 obesity Status: Chronic Category: Medical
--- NOTE | 2020-09-17 14:25 | HMH.ACPN2 ---
Internal Medicine - PN: Subj *Date: 09/17/20 *Time: 14:25 Interval history: Internal medicine follow-up note: Orthopedic note reviewed. Cultures reviewed. Personally discussed case with primary service. Exam Vital signs and Labs for Last 24 Hours: Temp Pulse Resp BP Pulse Ox 97.9 F 75 16 128/68 97 09/17/20 07:32 09/17/20 07:32 09/17/20 12:58 09/17/20 07:32 09/17/20 07:32 Laboratory Results - last 24 hr 09/17/20 00:40: Vancomycin Trough 8.4 09/17/20 06:30: WBC 8.0, RBC 3.59 L, Hgb 10.0 L, Hct 32.9 L, MCV 91.5, MCH 27.9, MCHC 30.5 L, RDW 14.6, Plt Count 376, MPV 7.4, Neut % (Auto) 66.4, Lymph % (Auto) 24.9, [place] % (Auto) 4.6, Eos % (Auto) 2.8, Baso % (Auto) 1.2, Neut # (Auto) 5.3, Lymph # (Auto) 2.0, [place] # (Auto) 0.4, Eos # (Auto) 0.2, Baso # (Auto) 0.1 09/17/20 06:30: Sodium 141, Potassium 4.0, Chloride 108 H, Carbon Dioxide 26, Anion Gap 11.0, BUN 14, Creatinine 1.00, Estimated Creat Clear 104, Estimated GFR 76, Est GFR ( Amer) 93, Glucose 90 D, Calcium 8.6 I & O for Last 24 hours: Intake & Output 09/15/20 09/16/20 09/17/20 09/18/20 11:59 11:59 11:59 11:59 Intake Total 1660 / 1660 1800 / 1800 240 / 240 Output Total 725 / 725 1550 / 1550 250 / 250 Balance 935 / 935 250 / 250 -10 / -10 Weight 220 lb 199 lb 1 oz 203 lb 7 oz Microbiology Reports for the Last 24 Hours: Microbiology 09/15/20 Unknown Ankle,Right Gram Stain - Final 09/15/20 Unknown Ankle,Right Wound Culture - Preliminary 09/15/20 14:29 Ankle,Right Gram Stain - Final 09/15/20 14:29 Ankle,Right Surgical Biopsy Culture - Preliminary Gram Negative Rods Narrative: Exam unchanged, afebrile, sensorium intact. Assessment and Plan (1) Wound dehiscence Status: Acute Category: Medical Code(s): T81.30XA - Disruption of wound, unspecified, initial encounter (2) Cellulitis Status: Acute Qualifiers: Site of cellulitis: unspecified site Qualified Code(s): L03.90 - Cellulitis, unspecified Category: Medical Code(s): L03.90 - Cellulitis, unspecified (3) Fracture of tibia, distal, right, closed Status: Acute Qualifiers: Encounter type: initial encounter Fracture morphology: unspecified fracture morphology Qualified Code(s): S82.301A - Unspecified fracture of lower end of right tibia, initial encounter for closed fracture Category: Medical Code(s): S82.301A - Unspecified fracture of lower end of right tibia, initial encounter for closed fracture (4) Hypertension Status: Acute Category: Medical Code(s): I10 - Essential (primary) hypertension (5) Smokeless tobacco use Status: Acute Category: Social Hx Code(s): Z72.0 - Tobacco use (6) Hypothyroid Status: Chronic Qualifiers: Hypothyroidism type: acquired Qualified Code(s): E03.9 - Hypothyroidism, unspecified Category: Medical Code(s): E03.9 - Hypothyroidism, unspecified (7) Class 1 obesity Status: Chronic Category: Medical Code(s): E66.9 - Obesity, unspecified - Assessment and plan all Dx Assessment and Plan for all problems:: Hypertension doing well, wound clean. Culture is concerning for osteomyelitis in fracture site. Recommend continuing antibiotics, agree with PICC line placement, will need long-term IV antibiotics in a skilled care facility for rehab.
--- NOTE | 2020-09-17 16:33 | PC.NURSE ---
Pt has required pain medication for RLE multiple times this shift, as documented on SEP. Pt reports pain to be throbbing and typically a 8-9/10. Limb elevated w/ pillow and ice pack applied prn. Dressing c/d/i. Wound vac cont @ 125 per MD orders. Pt worked w/ PT once this shift, complaining that he was in too much pain this AM and refusing to get OOB. Pt was a standby assist w/ use of walker when getting up to chair this afternoon. Pt was only up to chair for about an hour and a half before asking to go back to bed. Educated pt on importance of getting OOB and use of IS in prevention of HCAP. Remains on room air. HR regular. Cap refill <3 sec. Abdomen soft, non-tender w/ active BS. Has had 3 BM's this shift. Voiding per urinal w/o difficulty. Is currently sitting up in bed watching TV. [facility] ( [employer]) called about pt and left message to give them a call when pt is discharged whether it be home or to a SNF so they are aware. . No additional needs voiced by pt this shift. Call kelley w/in reach. PICC Line drsg changed this shift, 24 hours after insertions, using sterile technique @ bedside.
--- NOTE | 2020-09-18 03:39 | PC.NURSE ---
PT A&O x4 and has not slept tonight. Pt has required pain meds around the clock for pain in his right lower foot. Pt rates pain as 8-9 even after pain medication. Pt has ambulated with the walker to the bathroom, BM X 1. Lungs CTA, on room air. Bowel sounds x4, abd soft and nontender. Drsg to RLE c/d/i, able to move toes independently. Wound vac in place @ 125, cont. Pt able to make needs known. PICC and IV patent. Voiding per urinal independently. call light in reach, no concerns at this time.
[2020-09-18 04:00] VITALS: BP 138/72; PULSE 62; RESP 18; TEMP 36.6; O2SAT 94
--- NOTE | 2020-09-18 07:18 | HMH.ACPN2 ---
Internal Medicine - PN: Subj *Date: 09/18/20 *Time: 08:50 Interval history: Patient overall did well overnight. Remained hemodynamically stable and afebrile. Cultures have returned showing concern for osteomyelitis with gram-negative rods. On broad-spectrum antibiotics till this morning. Of note, [facility] and [facility] care including IV antibiotic administration to treat osteo-. Denies chest pain, shortness of breath, nausea or vomiting. Pain stable on current oral regimen Exam Vital signs and Labs for Last 24 Hours: Temp Pulse Resp BP Pulse Ox 97.9 F 62 18 138/72 94 L 09/18/20 04:00 09/18/20 04:00 09/18/20 04:00 09/18/20 04:00 09/18/20 04:00 I & O for Last 24 hours: Intake & Output 09/15/20 09/16/20 09/17/20 09/18/20 23:59 23:59 23:59 23:59 Intake Total 1180 / 1180 1800 / 2040 2514 / 2514 Output Total 500 / 500 775 / 1175 2450 / 2450 275 / 275 Balance 680 / 680 1025 / 865 64 / 64 -275 / -275 Weight 90.832 kg 90.293 kg 92.278 kg Microbiology Reports for the Last 24 Hours: Microbiology 09/15/20 Unknown Ankle,Right Gram Stain - Final 09/15/20 Unknown Ankle,Right Wound Culture - Preliminary 09/15/20 14:29 Ankle,Right Gram Stain - Final 09/15/20 14:29 Ankle,Right Surgical Biopsy Culture - Preliminary Gram Negative Rods - Constitutional no acute distress, obese - *Routine HEENT Exam Head: Present: normocephalic Eye: Present: EOMI, PERRL ENT: Present: mucous membranes moist - *Routine Neck Exam Present: supple. Absent: lymphadenopathy - *Routine Respiratory Exam Present: CTA bilaterally - *Routine Cardiovascular Exam Present: RRR - *Routine Abdominal Exam Present: soft, normoactive bowel sounds. Absent: tenderness - *Routine Extremities Exam Absent: edema Comments: Right lower extremity in postsurgical wrap with wound VAC in place - *Routine Skin Exam Present: warm. Absent: rash - *Routine Neurological Exam Present: alert, oriented X3 Assessment and Plan (1) Wound dehiscence Status: Acute Category: Medical Code(s): T81.30XA - Disruption of wound, unspecified, initial encounter (2) Cellulitis Status: Acute Qualifiers: Qualified Code(s): L03.90 - Cellulitis, unspecified Category: Medical Code(s): L03.90 - Cellulitis, unspecified (3) Fracture of tibia, distal, right, closed Status: Acute Qualifiers: Qualified Code(s): S82.301A - Unspecified fracture of lower end of right tibia, initial encounter for closed fracture Category: Medical Code(s): S82.301A - Unspecified fracture of lower end of right tibia, initial encounter for closed fracture (4) Hypertension Status: Acute Category: Medical Code(s): I10 - Essential (primary) hypertension (5) Smokeless tobacco use Status: Acute Category: Social Hx Code(s): Z72.0 - Tobacco use (6) Hypothyroid Status: Chronic Qualifiers: Qualified Code(s): E03.9 - Hypothyroidism, unspecified Category: Medical Code(s): E03.9 - Hypothyroidism, unspecified (7) Class 1 obesity Status: Chronic Category: Medical Code(s): E66.9 - Obesity, unspecified - Assessment and plan all Dx Assessment and Plan for all problems:: Patient medically stable for discharge to group home facility. Resume home medication regimen for chronic conditions. Will defer antibiotic and pain regimen to orthopedics. Thank you for the opportunity to assist in care of this patient. Let us know there is any further needs.
[2020-09-18 07:19] VITALS: BMI 31.6
[2020-09-18 08:42] VITALS: BP 170/88; PULSE 70; RESP 18; TEMP 36.9; O2SAT 96
--- NOTE | 2020-09-18 08:48 | HMH.ORTHPN ---
Subjective Date: 09/18/20 Time: 08:30 Principal diagnosis: R ankle wound dehiscence/infection Interval history: Vitals stable overnight, no fevers. Cultures resulted in pseudomonas. Vac was to be changed today but he is to be d/c to SNF and they will remove vac on admission to apply their own machine, so it was not changed. PN: Obj Ex Vital signs: Temp Pulse Resp BP Pulse Ox 98.4 F 70 18 170/88 H 96 09/18/20 08:42 09/18/20 08:42 09/18/20 08:42 09/18/20 08:42 09/18/20 08:42 - Constitutional no acute distress - Routine HEENT Exam Head: Present: normocephalic Eye: Present: EOMI ENT: Present: mucous membranes moist - Routine Neck Exam Present: trachea midline - Routine Respiratory Exam Absent: respiratory distress, wheezes - Routine Cardiovascular Exam Present: RRR - Routine Abdominal Exam Present: soft. Absent: tenderness - Routine Extremities Exam Comments: RLE splint intact, no drainage wound vac R lateral ankle functioning, at 125mHg wiggles toes R foot, SILT +DF/PF/EHL RLE, splint hinders movement SILT distally RLE in all distributions skin pink, warm, BCR all digits palpable pedal pulses RLE - Routine Skin Exam Present: warm - Routine Neurological Exam Present: alert, oriented X3, moving all extremities, normal tone, vision grossly intact, hearing grossly intact, normal speech. Absent: sensory deficit, motor deficit, altered mental status Progress Note: A&P (1) Wound dehiscence Status: Acute (2) Cellulitis Status: Acute (3) Fracture of tibia, distal, right, closed Status: Acute (4) Hypertension Status: Acute (5) Smokeless tobacco use Status: Acute (6) Hypothyroid Status: Chronic (7) Class 1 obesity Status: Chronic Assessment and Plan for All Diagnoses:: 60yo M s/p R tibial pilon fracture 08/03/20 --> closed reduction with external fixator placement 08/04/20 removal of external fixator + ORIF R tibial pilon fracture 08/19/20 POD 3 s/p I&D R ankle + wound vac placement; DOS 09/15/20 -- culture positive for pseudomonas; sensitive to levofloxacin and zosyn, will start on this regimen. Levofloxacin 750mg daily, zosyn 3.375 grams Q6 hr. Duration of therapy 6 weeks. -- continue wound vac at 125mmHg; needs to be changed today; will be done on arrival to assisted. VAC INSTRUCTIONS: place WHITE foam over wound, over exposed tendon, measure wound and cut to size. Cover white foam with black foam, also cut to exact wound size. Apply vac dressing over this and set on 125mmHg continuous suction. Change 2-3x per week. -- elevate RLE at all times. Continue posterior splint RLE, well-padded. Medial wounds: currently dressed with alginate; wound care assessment needed on arrival to SNF. Strict NWB RLE. -- continue home medications -- DVT prophy: SCDs, aspirin -- encourage IS 10x/hr while awake -- Dr. Reddy on consult for medical management -- care management consult for dispo planning; accepted by SNF, anticipate transfer today -- will need weekly CBC, BMP, ESR, CRP with results faxed to my office: [phone] -- follow-up with me in the office next week, 09/24/20
[2020-09-18 09:06] LABS: Basophils # 0.1 K/mm3 (0-0.2); Basophils % 1.3 % (0.1-2.0); Eosinophils # 0.4 K/mm3 (0.0-0.4); Hematocrit 32.8 % (42.0-52.0); Hemoglobin 10.5 g/dL (14.1-18.0); Lymphocytes # 1.7 K/mm3 (0.7-4.5); Lymphocytes % 21.1 % (10-50); Mean Corpuscular Volume 87.4 fl (80-94); Mean Platelet Volume 7.4 fl (7.4-10.4); Monocytes # 0.5 K/mm3 (0.1-1.0); Monocytes % 5.8 % (1.7-9.3); Neutrophils # 5.3 K/mm3 (1.8-7.8); Neutrophils % 66.8 % (37.0-80.0); Platelet Count 356 K/mm3 (142-424); Red Blood Count 3.75 M/mm3 (4.60-6.20); Red Cell Distribution Width 14.2 % (11.5-17.5)
[2020-09-18 09:11] LABS: Chloride 108 mmol/L (98-107); Potassium 3.7 mmoL/L (3.5-5.1); Sodium 143 mmol/L (136-145)
[2020-09-18 09:14] LABS: Anion Gap 12.7 mEq/L (5-15); Blood Urea Nitrogen 10 mg/dl (9-20); Calcium 9.3 mg/dl (8.4-10.2); Carbon Dioxide 26 mmol/L (22.0-30.0); Creatinine Clearance Estimated 103 mL/min (50-200); Estimated Glomerular Filt Rate 76 ml/min (>60); GFR (African American) 93 ML/MIN (>60); Glucose 95 mg/dl (74-100)
[2020-09-18 09:19] LABS: C-Reactive Protein 22.9 mg/L (0-4)
--- NOTE | 2020-09-18 09:48 | HMH.DCSUM ---
General - General Admission date:: 09/15/20 Discharge date: 09/18/20 HPI HPI: 60yo M s/p closed R tibial pilon fracture 08/03/20, which was stabilized 08/04/20 with an external fixator. This was followed by fixtator removal and ORIF pilon fracture 08/19/20. The patient did not present for initial post-operative follow-up for 16 days; he no-showed or rescheduled multiple times. He reports being nonweightbearing on the right lower extremity and keeping the ankle elevated, though the friend that accompanied him denies him elevating the ankle. He was seen to have significant swelling with the beginning of lateral wound dehiscence. He was started on oral clindamycin 08/11/20 and daily betadine paint added to dressing changes. At his next follow-up on 09/11/20 his lateral wound had continued to worsen, with a small amount of drainage. No fevers or chills reported. Gentle debridement of the eschar over the lateral wound revealed exposed tendon, so debridement was stopped and formal surgical debridment planned. Wound vac placement was planned, with possible integra placement and later STSG if appropriate. I discussed the risks of surgery with the patient, including the risk of infection, bleeding, neurovascular damage, persistent pain, ankle stiffness, need for persistent nonweightbearing, possible need for wound grafting or integra placement, possible repeat debridement and grafting, and the risk of anesthesia including heart attack, stroke and . The patient vocalized understanding and is in agreement with this plan, informed consent obtained. He was asked to continue his clindamycin until surgery. Hospital Course Hospital Course: I&D of the R ankle was performed 09/15/20 under general anesthesia. In addition to exposed tendon laterally, there was a large pocket of cloudy fluid just deep to the tendon; this was swabbed for culture and tissue culture sent. Lateral hardware was visible deep to the tendon as well. No tamra pus seen, no necrotic tissue. Lateral wound measurements: 12cm L x 3cm W x 0.5cm D. Wound vac placed over lateral wound, with white sponge deep over tendon and black sponge over this; set at 125mmHg continuous pressure. Post-operatively the patient remained afebrile with stable vital signs. Pain well-controlled on oral medication. He was started on IV vanc/zoysn post-operatively. PICC line was placed on POD 1. On POD 3 culture results were available, positive for pseudomonas. Vancomycin was switched to levofloxacin but zosyn continued. He is to be discharged on this regimen. Medically appropriate for d/c on POD 3, transferred to SNF. Objective Vital signs: Temp Pulse Resp BP Pulse Ox 98.4 F 70 18 170/88 H 96 09/18/20 08:42 09/18/20 08:42 09/18/20 08:42 09/18/20 08:42 09/18/20 08:42 no acute distress - *Routine HEENT Exam Head: Present: normocephalic Eye: Present: EOMI ENT: Present: mucous membranes moist - *Routine Neck Exam Present: trachea midline - *Routine Respiratory Exam Absent: respiratory distress, wheezes - *Routine Cardiovascular Exam Present: RRR - *Routine Abdominal Exam Present: soft. Absent: tenderness - *Routine Extremities Exam Comments: RLE splint intact, no drainage wound vac R lateral ankle functioning, at 125mHg wiggles toes R foot, SILT +DF/PF/EHL RLE, splint hinders movement SILT distally RLE in all distributions skin pink, warm, BCR all digits palpable pedal pulses RLE - *Routine Skin Exam Present: warm - *Routine Neurological Exam Present: alert, oriented X3, moving all extremities, normal tone, vision grossly intact, hearing grossly intact, normal speech. Absent: sensory deficit, motor deficit, altered mental status Results Completed studies during hospitalization [Text1]: Laboratory Results - last 72 hr 09/16/20 09/16/20 09/16/20 07:25 07:25 07:25 WBC 8.3 RBC 3.76 L Hgb 10.4 L Hct 33.4 L MCV 88.8 [address]CH 27[address]
[2020-09-18 10:32] LABS: Erythrocyte Sedimentation Rate 42 mm/hr (0-20)
--- NOTE | 2020-09-18 10:54 | DIET.NUTRFU ---
Pt reported allergies to milk and yeast. However, he has ordered menu items that are primarily milk/yeast. When assessed, pt states he has a mild allergy and I can eat a little bit. Educated pt that the menu items he ordered are high in milk and yeast, he voiced understanding and stated he eats these things at home.
== END 2020-09-18 13:35 ==
LOC: 2ND 14:35
PROVIDERS: Internal Medicine Adolescent Medicine; Admitting Provider Orthopaedic Surgery; PCP Internal Medicine Adolescent Medicine; Visit Provider Orthopaedic Surgery
DX: T81.32XA Disruption of internal operation (surgical) wound, not elsewhere classified, initial encounter (principal); S82.871G Displaced pilon fracture of right tibia, subsequent encounter for closed fracture with delayed healing; I10 Essential (primary) hypertension; E78.5 Hyperlipidemia, unspecified; E03.9 Hypothyroidism, unspecified; Z79.82 Long term (current) use of aspirin; Z79.899 Other long term (current) drug therapy; L03.115 Cellulitis of right lower limb; B96.5 Pseudomonas (aeruginosa) (mallei) (pseudomallei) as the cause of diseases classified elsewhere
CPT/HCPCS: 13160; 36569; 71045; 80048; 80202; 83036; 85025; 85651; 86140; 87070; 87075; 87077; 87186; 87205; 96374; 97110; 97116; 97162; 97530; G0378; J1956; J2405; J2543; J3370; U0003

== ENCOUNTER → 2020-09-25 14:59 | Outpatient (CLI) | payer MEDICARE, MEDICAID, SELFPAY ==
--- NOTE | 2020-09-25 15:02 | XR_ITS ---
PROCEDURE: XR ANKLE RT MIN 3V CLINICAL INDICATION: s/p right ankle Follow-up surgery COMPARISON: CR XR ANKLE RT 2V from 08/04/2020 CR XR ANKLE RT MIN 3V from 08/13/2020 CR XR ANKLE RT MIN 3V from 08/19/2020 CR XR ANKLE RT MIN 3V from 09/04/2020 FINDINGS: Prior ORIF of the right tib fib. Both medial and lateral bone plates remain in place at the distal tibia. Multiple cortical screws are present. There is a translucent fixator at the distal tib fib region. The ankle mortise appears preserved. Fracture lines are still visible. Lucency noted in the mid aspect of the calcaneus from previous external fixator. There is a drain device present anteriorly. IMPRESSION: Postsurgical changes with good alignment. A drain is in place otherwise no change Dictated by: Nnamdi Dickerson MD 09/25/2020 15:38 Nnamdi Dickerson MD in [facility] 09/25/2020 15:38
[2020-09-25 15:48] LABS: Basophils # 0.1 K/mm3 (0-0.2); Basophils % 1.9 % (0.1-2.0); Eosinophils # 0.6 K/mm3 (0.0-0.4); Eosinophils % 7.9 % (0.1-12.0); Hematocrit 36.6 % (42.0-52.0); Hemoglobin 11.5 g/dL (14.1-18.0); Lymphocytes # 1.4 K/mm3 (0.7-4.5); Lymphocytes % 19.9 % (10-50); Mean Corpuscular HGB Conc 31.3 g/dL (31.8-35.4); Mean Corpuscular Hemoglobin 26.8 pg (27.0-31.2); Mean Corpuscular Volume 85.5 fl (80-94); Mean Platelet Volume 7.9 fl (7.4-10.4); Monocytes # 0.4 K/mm3 (0.1-1.0); Monocytes % 5.7 % (1.7-9.3); Neutrophils # 4.6 K/mm3 (1.8-7.8); Neutrophils % 64.5 % (37.0-80.0); Platelet Count 408 K/mm3 (142-424); Red Blood Count 4.28 M/mm3 (4.60-6.20); Red Cell Distribution Width 13.9 % (11.5-17.5); White Blood Count 7.2 K/mm3 (4.8-10.8)
[2020-09-25 16:11] LABS: Erythrocyte Sedimentation Rate 33 mm/hr (0-20)
[2020-09-25 16:28] LABS: C-Reactive Protein 8.6 mg/L (0-4)
== END ==
PROVIDERS: PCP Internal Medicine Adolescent Medicine; Visit Provider Orthopaedic Surgery
DX: S82.301A Unspecified fracture of lower end of right tibia, initial encounter for closed fracture (principal); T81.49XA Infection following a procedure, other surgical site, initial encounter; T81.30XA Disruption of wound, unspecified, initial encounter; T81.40XA Infection following a procedure, unspecified, initial encounter
CPT/HCPCS: 36415; 73610; 85025; 85651; 86140

== ENCOUNTER → 2020-10-06 07:59 | Outpatient (CLI) | payer MEDICARE, MEDICAID, SELFPAY ==
[2020-10-06 14:51] LABS: Basophils # 0.1 K/mm3 (0-0.2); Basophils % 1.6 % (0.1-2.0); Eosinophils # 0.6 K/mm3 (0.0-0.4); Eosinophils % 8.2 % (0.1-12.0); Hemoglobin 12.3 g/dL (14.1-18.0); Lymphocytes % 29.3 % (10-50); Mean Corpuscular HGB Conc 31.5 g/dL (31.8-35.4); Mean Corpuscular Hemoglobin 26.7 pg (27.0-31.2); Mean Corpuscular Volume 84.7 fl (80-94); Mean Platelet Volume 8.4 fl (7.4-10.4); Monocytes # 0.3 K/mm3 (0.1-1.0); Neutrophils # 3.8 K/mm3 (1.8-7.8); Neutrophils % 55.9 % (37.0-80.0); Platelet Count 377 K/mm3 (142-424); Red Blood Count 4.61 M/mm3 (4.60-6.20); Red Cell Distribution Width 14.3 % (11.5-17.5); White Blood Count 6.8 K/mm3 (4.8-10.8)
[2020-10-06 15:11] LABS: Anion Gap 13.1 mEq/L (5-15); Blood Urea Nitrogen 7 mg/dl (9-20); Calcium 9.6 mg/dl (8.4-10.2); Carbon Dioxide 25 mmol/L (22.0-30.0); Chloride 106 mmol/L (98-107); Estimated Glomerular Filt Rate 86 ml/min (>60); GFR (African American) 105 ML/MIN (>60); Glucose 83 mg/dl (74-100); Potassium 4.1 mmoL/L (3.5-5.1); Sodium 140 mmol/L (136-145)
[2020-10-06 15:16] LABS: C-Reactive Protein 3.2 mg/L (0-4)
[2020-10-06 16:09] LABS: Erythrocyte Sedimentation Rate 16 mm/hr (0-20)
== END ==
PROVIDERS: Visit Provider Internal Medicine Adolescent Medicine
DX: S82.301D Unspecified fracture of lower end of right tibia, subsequent encounter for closed fracture with routine healing (principal); I10 Essential (primary) hypertension; E78.5 Hyperlipidemia, unspecified; E03.9 Hypothyroidism, unspecified
CPT/HCPCS: 36415; 80048; 85025; 85651; 86140

== ENCOUNTER → 2020-10-12 08:48 | Outpatient (CLI) | payer MEDICARE, MEDICAID, SELFPAY ==
[2020-10-12 15:46] LABS: Basophils # 0.1 K/mm3 (0-0.2); Eosinophils # 0.6 K/mm3 (0.0-0.4); Hemoglobin 11.9 g/dL (14.1-18.0); Lymphocytes # 1.6 K/mm3 (0.7-4.5); Lymphocytes % 29.6 % (10-50); Mean Corpuscular HGB Conc 30.6 g/dL (31.8-35.4); Mean Corpuscular Hemoglobin 26.1 pg (27.0-31.2); Mean Corpuscular Volume 85.3 fl (80-94); Monocytes # 0.4 K/mm3 (0.1-1.0); Monocytes % 7.9 % (1.7-9.3); Neutrophils # 2.6 K/mm3 (1.8-7.8); Neutrophils % 49.5 % (37.0-80.0); Platelet Count 266 K/mm3 (142-424); Red Blood Count 4.57 M/mm3 (4.60-6.20); Red Cell Distribution Width 14.2 % (11.5-17.5); White Blood Count 5.2 K/mm3 (4.8-10.8)
[2020-10-12 15:51] LABS: Chloride 109 mmol/L (98-107); Potassium 4.4 mmoL/L (3.5-5.1); Sodium 143 mmol/L (136-145)
[2020-10-12 15:54] LABS: Blood Urea Nitrogen 11 mg/dl (9-20); Estimated Glomerular Filt Rate 86 ml/min (>60); GFR (African American) 105 ML/MIN (>60)
[2020-10-12 15:55] LABS: Anion Gap 11.4 mEq/L (5-15); Calcium 9.5 mg/dl (8.4-10.2); Carbon Dioxide 27 mmol/L (22.0-30.0); Glucose 77 mg/dl (74-100)
[2020-10-12 16:05] LABS: C-Reactive Protein 5.4 mg/L (0-4)
[2020-10-12 17:31] LABS: Erythrocyte Sedimentation Rate 14 mm/hr (0-20)
== END ==
PROVIDERS: Visit Provider Internal Medicine Adolescent Medicine
DX: I10 Essential (primary) hypertension (principal); E78.5 Hyperlipidemia, unspecified
CPT/HCPCS: 36415; 80048; 85025; 85651; 86140

== ENCOUNTER → 2020-10-19 07:36 | Outpatient (CLI) | payer MEDICARE, MEDICAID, SELFPAY ==
[2020-10-19 13:56] LABS: Basophils # 0.1 K/mm3 (0-0.2); Basophils % 1.7 % (0.1-2.0); Eosinophils # 0.5 K/mm3 (0.0-0.4); Eosinophils % 9.2 % (0.1-12.0); Hematocrit 40.4 % (42.0-52.0); Hemoglobin 12.7 g/dL (14.1-18.0); Lymphocytes # 1.6 K/mm3 (0.7-4.5); Lymphocytes % 31.7 % (10-50); Mean Corpuscular HGB Conc 31.4 g/dL (31.8-35.4); Mean Corpuscular Hemoglobin 26.2 pg (27.0-31.2); Mean Corpuscular Volume 83.5 fl (80-94); Mean Platelet Volume 8.3 fl (7.4-10.4); Monocytes # 0.3 K/mm3 (0.1-1.0); Neutrophils # 2.6 K/mm3 (1.8-7.8); Neutrophils % 51.4 % (37.0-80.0); Platelet Count 232 K/mm3 (142-424); Red Blood Count 4.83 M/mm3 (4.60-6.20); Red Cell Distribution Width 14.6 % (11.5-17.5); White Blood Count 5.1 K/mm3 (4.8-10.8)
[2020-10-19 14:02] LABS: Chloride 108 mmol/L (98-107); Potassium 4.1 mmoL/L (3.5-5.1); Sodium 144 mmol/L (136-145)
[2020-10-19 14:05] LABS: Anion Gap 12.1 mEq/L (5-15); Blood Urea Nitrogen 8 mg/dl (9-20); Calcium 9.5 mg/dl (8.4-10.2); Carbon Dioxide 28 mmol/L (22.0-30.0); Estimated Glomerular Filt Rate 86 ml/min (>60); GFR (African American) 105 ML/MIN (>60); Glucose 83 mg/dl (74-100)
[2020-10-19 14:11] LABS: C-Reactive Protein 3.5 mg/L (0-4)
[2020-10-19 15:22] LABS: Erythrocyte Sedimentation Rate 20 mm/hr (0-20)
== END ==
PROVIDERS: Visit Provider Internal Medicine Adolescent Medicine
DX: I10 Essential (primary) hypertension (principal)
CPT/HCPCS: 36415; 80048; 85025; 85651; 86140

== ENCOUNTER → 2020-10-26 08:14 | Outpatient (CLI) | payer MEDICARE, MEDICAID, SELFPAY ==
[2020-10-26 13:17] LABS: Basophils # 0.1 K/mm3 (0-0.2); Basophils % 1.6 % (0.1-2.0); Eosinophils # 0.5 K/mm3 (0.0-0.4); Eosinophils % 8.4 % (0.1-12.0); Hematocrit 44.2 % (42.0-52.0); Hemoglobin 13.5 g/dL (14.1-18.0); Lymphocytes # 2.2 K/mm3 (0.7-4.5); Lymphocytes % 37.2 % (10-50); Mean Corpuscular HGB Conc 30.6 g/dL (31.8-35.4); Mean Corpuscular Hemoglobin 25.7 pg (27.0-31.2); Mean Platelet Volume 8.5 fl (7.4-10.4); Monocytes # 0.3 K/mm3 (0.1-1.0); Monocytes % 5.2 % (1.7-9.3); Neutrophils # 2.8 K/mm3 (1.8-7.8); Neutrophils % 47.7 % (37.0-80.0); Platelet Count 253 K/mm3 (142-424); Red Blood Count 5.26 M/mm3 (4.60-6.20); Red Cell Distribution Width 14.7 % (11.5-17.5); White Blood Count 5.8 K/mm3 (4.8-10.8)
[2020-10-26 13:37] LABS: Chloride 105 mmol/L (98-107); Potassium 3.8 mmoL/L (3.5-5.1); Sodium 144 mmol/L (136-145)
[2020-10-26 13:40] LABS: Anion Gap 15.8 mEq/L (5-15); Blood Urea Nitrogen 8 mg/dl (9-20); Carbon Dioxide 27 mmol/L (22.0-30.0); Estimated Glomerular Filt Rate 99 ml/min (>60); GFR (African American) 120 ML/MIN (>60)
[2020-10-26 13:41] LABS: Calcium 9.9 mg/dl (8.4-10.2); Glucose 115 mg/dl (74-100)
[2020-10-26 13:59] LABS: C-Reactive Protein 1.6 mg/L (0-4)
[2020-10-26 14:28] LABS: Erythrocyte Sedimentation Rate 7 mm/hr (0-20)
[2020-11-06 17:38] LABS: C difficile Toxins AB, EIA NEGATIVE
== END ==
PROVIDERS: Nurse Practitioner Family; Visit Provider Internal Medicine Adolescent Medicine
DX: I10 Essential (primary) hypertension (principal); E78.5 Hyperlipidemia, unspecified
CPT/HCPCS: 36415; 80048; 85025; 85651; 86140; 87324

== ENCOUNTER → 2020-10-26 15:45 | Outpatient (CLI) | payer MEDICARE, MEDICAID, SELFPAY | PROVIDERS: Visit Provider Nurse Practitioner Family | DX: R19.7 Diarrhea, unspecified (principal) | CPT/HCPCS: 87324 ==

== ENCOUNTER → 2020-10-30 14:11 | Outpatient (CLI) | payer MEDICARE, MEDICAID, SELFPAY ==
--- NOTE | 2020-10-30 14:14 | XR_ITS ---
PROCEDURE: XR ANKLE RT MIN 3V CLINICAL INDICATION: S/P RT ankle Follow-up ORIF COMPARISON: CR XR ANKLE RT MIN 3V from 08/13/2020 CR XR ANKLE RT MIN 3V from 08/19/2020 CR XR ANKLE RT MIN 3V from 09/04/2020 CR XR ANKLE RT MIN 3V from 09/25/2020 FINDINGS: Prior ORIF of the right tib fib. Both medial and lateral bone plates remain in place at the distal tibia. Multiple cortical screws are present. There is a translucent fixator at the distal tib fib region. The ankle mortise appears preserved. Fracture lines are still visible. Lucency noted in the mid aspect of the calcaneus from previous external fixator. Suction type drainage device noted along the anterior aspect of the distal leg. Lucency noted at the mid tibia consistent with prior external fixator IMPRESSION: No change status post ORIF distal tib fib as described above with good alignment of the fracture fragments Dictated by: Nnamdi Dickerson MD 10/30/2020 16:14 Nnamdi Dickerson MD in [place] 10/30/2020 16:14
== END ==
PROVIDERS: PCP Internal Medicine Adolescent Medicine; Visit Provider Orthopaedic Surgery
DX: S82.301A Unspecified fracture of lower end of right tibia, initial encounter for closed fracture (principal)
CPT/HCPCS: 73610

== ENCOUNTER → 2020-11-02 07:16 | Outpatient (CLI) | payer MEDICARE, MEDICAID, SELFPAY ==
[2020-11-02 14:45] LABS: Chloride 107 mmol/L (98-107)
[2020-11-02 14:49] LABS: Albumin Level 4.6 g/dl (3.5-5.0); Bilirubin,Total 0.4 mg/dl (0.2-1.3); Calcium 10.2 mg/dl (8.4-10.2); Glucose 96 mg/dl (74-100)
[2020-11-02 14:51] LABS: Basophils # 0.1 K/mm3 (0-0.2); Basophils % 1.3 % (0.1-2.0); Eosinophils # 0.3 K/mm3 (0.0-0.4); Eosinophils % 6.1 % (0.1-12.0); Hematocrit 42.8 % (42.0-52.0); Hemoglobin 13.6 g/dL (14.1-18.0); Lymphocytes # 1.5 K/mm3 (0.7-4.5); Lymphocytes % 31.1 % (10-50); Mean Corpuscular HGB Conc 31.9 g/dL (31.8-35.4); Mean Corpuscular Hemoglobin 26.3 pg (27.0-31.2); Mean Corpuscular Volume 82.5 fl (80-94); Mean Platelet Volume 8.7 fl (7.4-10.4); Monocytes # 0.4 K/mm3 (0.1-1.0); Neutrophils # 2.6 K/mm3 (1.8-7.8); Neutrophils % 53.6 % (37.0-80.0); Platelet Count 263 K/mm3 (142-424); Red Blood Count 5.18 M/mm3 (4.60-6.20); White Blood Count 4.8 K/mm3 (4.8-10.8)
[2020-11-02 15:22] LABS: Erythrocyte Sedimentation Rate 4 mm/hr (0-20)
[2020-11-02 15:25] LABS: Potassium 3.9 mmoL/L (3.5-5.1); Sodium 142 mmol/L (136-145)
[2020-11-02 15:27] LABS: Blood Urea Nitrogen 11 mg/dl (9-20); Estimated Glomerular Filt Rate 99 ml/min (>60); GFR (African American) 120 ML/MIN (>60)
[2020-11-02 15:28] LABS: Alanine Aminotransferase 29 U/L (12-78); Alkaline Phosphatase 53 U/L (38-126); Anion Gap 15.9 mEq/L (5-15); Aspartate Amino Transferase 30 U/L (17-59); Carbon Dioxide 23 mmol/L (22.0-30.0); Globulin 2.3 g/dL (1.3-3.2); Total Protein,Serum 6.9 g/dl (6.3-8.2)
[2020-11-02 15:33] LABS: C-Reactive Protein 2.5 mg/L (0-4)
[2020-11-03 08:41] LABS: Coronavirus 19 IgG Antibody Negative (Negative); Coronavirus 19 IgM Antibody Negative (Negative)
== END ==
PROVIDERS: Orthopaedic Surgery; Visit Provider Nurse Practitioner Family
DX: S82.301A Unspecified fracture of lower end of right tibia, initial encounter for closed fracture (principal); T81.30XA Disruption of wound, unspecified, initial encounter; T81.49XA Infection following a procedure, other surgical site, initial encounter; Z01.812 Encounter for preprocedural laboratory examination; Z20.822 Contact with and (suspected) exposure to COVID-19
CPT/HCPCS: 36415; 80053; 85025; 85651; 86140; 86328

== ENCOUNTER 2020-11-04 06:17 | Day surgery (SDC) | payer MEDICARE, MEDICAID, SELFPAY ==
[2020-11-02 15:21] VITALS: BMI 43.8
[2020-11-04] VITALS (11 sets, daily range): BP systolic 139–154; BP diastolic 85–101; PULSE 71–90; RESP 12–18; TEMP 36.4–38; O2SAT 91–96
--- NOTE | 2020-11-04 08:58 | P.PN_ITS ---
[facility] Anesthesia Checklist - Structural Data Admitted From: Home Planned Operative Procedure/s: i/d r foot Consent for Planned Operative Procedure(s) Verified: Yes - Additional verifications Anesthesia Reactions: No Hx Blood Transfusions: No Blood Transfusion Reaction: No - Airway Assessment C-Spine Mobility Assessed: Yes TMJ Mobility Assessed: Yes Dentition: Poor Dentition - Neurological Assessment Level of Consciousness: Awake, Alert, Appropriate - Anesthesia Plan Anesthesia Risk discussed: Yes Anesthesia Plan: Verified ASA Class: II Anesthesia Type: General [facility] History I have reviewed the patient's past medical history: Yes Medical History: Reports:: Anxiety, Asthma, Gastroesophageal Reflux Disease(GERD), Hyperlipidemia, Hypertension Denies:: Cancer, Diabetes Mellitus Type 1, Diabetes Mellitus Type 2, Internal Pacemaker, Lung Disease, MRSA, Seizures *Have you ever received a pneumonia vaccine?: No *Have you received a flu vaccine this season?: No Other Medical History: Reports: Arthritis, Hypothyroidism. Denies: Blood Transfusion Reaction Anesthesia experience/problems:: none Laterality Cases: Right: Arthroscopy Hip, Arthroscopy Shoulder, Total Hip Replacement, Other Other Surgeries: Yes: Colonoscopy, EGD, Thyroidectomy. No: Pacemaker Amputation: No Fractures: Yes - *Social History Last grade of school completed: 7th or 8th Smoking Status: Current every day smoker Tobacco Type: smokeless tobacco # Packs/Day (cigarettes): 1 Alcohol Intake: never Substance Use Type: denies use *Occupational Status:: disabled Housing: house Household Members: friend(s) *Travel in the last 8 weeks: None - Psychiatric History Pschychiatric History:: Reports:: Anxiety Family Hx:: No significant family history
--- NOTE | 2020-11-04 09:01 | P.PN_ITS ---
[facility] Anesthesia Record Part I Intake, IV Amount: 1,000 Estimated blood loss (mL): 0 Urine output (mL): 0 Blood Pressure: 149/91 SaO2: 94 Pulse Rate: 90 Respiratory Rate: 12 Temperature: 97.5 F Patient is:: Awake, Stable Stable to PACU at:: 08:50
--- NOTE | 2020-11-04 11:10 | HMH.OPNOTE ---
Date of procedure: 11/04/20 Pre-op Diagnosis:: R lower extremity: 1) tibial pilon fracture s/p ORIF 08/19/20 2) post-operative wound dehiscence and infection Post-op Diagnosis:: same Procedure performed:: 1) irrigation and debridement R lateral ankle wound 2) integra application R lateral ankle wound 3) wound vac application Surgeon:: Jennifer House MD [employer] Trimmer(s):: Karena Mirza NURSING MANAGER:: Saroj Carrizales Anesthesia: GETA Estimated blood loss (mL): 5 Clinical Note:: 60-year-old gentleman who sustained a closed but highly comminuted right distal tibial pilon fracture on 08/03/2020. This was followed by closed reduction and external fixator application on 08/04/2020. The external fixator was removed and open reduction internal fixation of the fracture was performed on 08/19/2020. Postoperatively the lateral wound dehisced and became infected; this was promptly debrided but was infected with Pseudomonas per intraoperative cultures. The wound was debrided and wound VAC placed on 09/15/2020. The patient has had 6 weeks of IV antibiotic therapy with Levaquin and Zosyn, in addition to wound VAC therapy. The back has shown good granulation tissue at the borders of the wound but tendon remains exposed. White blood cell count, CRP and ESR have all normalized and the patient has shown good clinical response to therapy. It is felt that this would be a prudent time to cover the wound and the application of Integra was discussed with the patient. I discussed the risk of the procedure with the patient, including bleeding, infection, failure of the Integra to take necessitating further application, the need for later versus split-thickness skin grafting if the Integra does take, possible need for further antibiotic therapy, and risks of anesthesia. The patient vocalized understanding and informed consent was obtained. Operative findings:: wound dimensions (lateral ankle; medial incision healed well): 7cm L x 3cm W x 0.2cm D Operative note:: The patient was identified in preoperative holding and the right ankle signed by myself. Consent was reviewed and discussed with the patient, all questions answered. He was then taken to the OR where he was transferred to the operative table and all bony prominences well-padded. SCD was placed on the left lower extremity. 2 g Ancef were administered intravenously and general anesthesia induced. Once patient was asleep, a nonsterile tourniquet was placed on the upper right thigh and splint was removed from the right lower extremity. The right lower extremity was then prepped and draped in the usual sterile fashion using a Betadine prep kit. Timeout was performed, identifying the correct patient, correct procedure, and correct site. The procedure was begun by measuring the wound, which measured 7 cm long by 3 cm wide by 0.2 cm deep. This was the lateral right ankle incision. The medial incision has healed well. There was exposed tendon laterally, but the tendon appeared in good condition was not desiccated. There was no purulence. No drainage from the wound; soft tissue appears to have firmly adhered to the underlying substrate. A small tissue sample was sent for culture. Curette was then used to lightly undermined the wound borders and stimulate some bleeding. The tendons were curetted lightly as well, and the wound copiously irrigated with sterile saline. There was no exposed bone and no exposed hardware seen. No purulence noted, no cloudy fluid or other drainage noted. A sheet of Integra dermal matrix was applied to the wound and stapled parallel to the wound incision just inside the wound margins per acid leveler's instructions. The Integra was then trimmed so that no excess remained on healthy skin. This covered the defect well. The product came prefenestrated and no additional pie crusting was performed. Next, a wound VAC was placed over this wound, using black sponge directly on the silicone sheet
--- NOTE | 2020-11-05 09:33 | HMH.ANESII ---
[facility] Anesthesia Record Part II Discharge Time: 09:20 Destination: Surgical Day Care (OP Surgery) PACU nurse assessment reviewed?: Yes Patient Condition:: Good Anesthesia Complications:: None Swallowing reflex intact?: Yes Cyanosis?: No Blood Pressure: 149/97 Pulse Rate: 71 Temperature: 97.6 F Mental Status: Alert & Oriented Pain level:: 0 Nausea and/or vomitting:: None Intake, IV Amount: 500
[2020-11-05 09:34] VITALS: BP 149/97; PULSE 71; TEMP 36.4
== END 2020-11-04 10:00 | disposition home or self-care (01) ==
LOC: OR 06:19
PROVIDERS: PCP Internal Medicine Adolescent Medicine; Visit Provider Orthopaedic Surgery
DX: T81.32XA Disruption of internal operation (surgical) wound, not elsewhere classified, initial encounter (principal); S82.871G Displaced pilon fracture of right tibia, subsequent encounter for closed fracture with delayed healing; I10 Essential (primary) hypertension; E78.5 Hyperlipidemia, unspecified; E03.9 Hypothyroidism, unspecified; Z79.899 Other long term (current) drug therapy; Z79.82 Long term (current) use of aspirin; L03.115 Cellulitis of right lower limb
CPT/HCPCS: 15275; 87070; 87205; 96374; J2405; Q4104

== ENCOUNTER → 2020-11-13 13:14 | Outpatient (CLI) | payer MEDICARE, MEDICAID, SELFPAY ==
--- NOTE | 2020-11-13 13:32 | XR_ITS ---
PROCEDURE: XR ANKLE RT MIN 3V CLINICAL INDICATION: s/p RT ankle Follow-up ankle surgery COMPARISON: CR XR ANKLE RT MIN 3V from 08/19/2020 CR XR ANKLE RT MIN 3V from 09/04/2020 CR XR ANKLE RT MIN 3V from 09/25/2020 CR XR ANKLE RT MIN 3V from 10/30/2020 FINDINGS: Wound VAC is present along the lower leg laterally with multiple skin clips at this region. Prior ORIF distal tibia with no change in the orthopedic hardware compared to the previous exam. There remains good alignment. Lucency once again noted in the mid aspect of the calcaneus and in the mid tibia from prior external fixator. No bony destructive process evident. IMPRESSION: Postsurgical changes with no change in the bony hardware the distal tibia. Wound VAC and skin clips present without any evidence of bony destructive process. Dictated by: Nnamdi Dickerson MD 11/13/2020 15:21 Nnamdi Dickerson MD in OV 11/13/2020 15:21
[2020-11-13 14:24] LABS: Basophils # 0.1 K/mm3 (0-0.2); Basophils % 0.9 % (0.1-2.0); Eosinophils # 0.3 K/mm3 (0.0-0.4); Eosinophils % 3.8 % (0.1-12.0); Hematocrit 43.7 % (42.0-52.0); Hemoglobin 13.8 g/dL (14.1-18.0); Lymphocytes # 1.7 K/mm3 (0.7-4.5); Lymphocytes % 22.7 % (10-50); Mean Corpuscular HGB Conc 31.7 g/dL (31.8-35.4); Mean Corpuscular Hemoglobin 25.6 pg (27.0-31.2); Mean Corpuscular Volume 80.8 fl (80-94); Mean Platelet Volume 7.9 fl (7.4-10.4); Monocytes # 0.4 K/mm3 (0.1-1.0); Monocytes % 5.8 % (1.7-9.3); Neutrophils % 66.7 % (37.0-80.0); Platelet Count 253 K/mm3 (142-424); Red Cell Distribution Width 15.2 % (11.5-17.5); White Blood Count 7.4 K/mm3 (4.8-10.8)
[2020-11-13 14:30] LABS: Chloride 105 mmol/L (98-107); Sodium 142 mmol/L (136-145)
[2020-11-13 14:31] LABS: Potassium 3.8 mmoL/L (3.5-5.1)
[2020-11-13 14:33] LABS: Blood Urea Nitrogen 9 mg/dl (9-20); Estimated Glomerular Filt Rate 138 ml/min (>60); GFR (African American) 167 ML/MIN (>60)
[2020-11-13 14:34] LABS: Anion Gap 11.8 mEq/L (5-15); Calcium 9.7 mg/dl (8.4-10.2); Carbon Dioxide 29 mmol/L (22.0-30.0); Glucose 125 mg/dl (74-100)
[2020-11-13 14:55] LABS: Erythrocyte Sedimentation Rate 11 mm/hr (0-20)
[2020-11-13 15:33] LABS: C-Reactive Protein 9.3 mg/L (0-4)
== END ==
PROVIDERS: PCP Internal Medicine Adolescent Medicine; Visit Provider Orthopaedic Surgery
DX: S82.301A Unspecified fracture of lower end of right tibia, initial encounter for closed fracture (principal); T81.30XA Disruption of wound, unspecified, initial encounter; T81.49XA Infection following a procedure, other surgical site, initial encounter
CPT/HCPCS: 36415; 73610; 80048; 85025; 85651; 86140

== ENCOUNTER → 2020-11-20 13:03 | Outpatient (CLI) | payer MEDICARE, MEDICAID, SELFPAY ==
[2020-11-20 13:05] LABS: MANUAL DIFFERENTIAL MANUAL DIFFERENTIAL (MANUAL DIFF)
[2020-11-20 13:30] LABS: Basophils # 0.1 K/mm3 (0-0.2); Basophils % 1.5 % (0.1-2.0); Eosinophils # 0.3 K/mm3 (0.0-0.4); Eosinophils % 5.3 % (0.1-12.0); Hematocrit 43.7 % (42.0-52.0); Hemoglobin 13.4 g/dL (14.1-18.0); Lymphocytes # 2.1 K/mm3 (0.7-4.5); Mean Corpuscular HGB Conc 30.7 g/dL (31.8-35.4); Mean Corpuscular Hemoglobin 25.1 pg (27.0-31.2); Mean Corpuscular Volume 81.7 fl (80-94); Mean Platelet Volume 7.5 fl (7.4-10.4); Monocytes # 0.3 K/mm3 (0.1-1.0); Monocytes % 5.6 % (1.7-9.3); Neutrophils # 2.8 K/mm3 (1.8-7.8); Neutrophils % 49.7 % (37.0-80.0); Platelet Count 255 K/mm3 (142-424); Red Blood Count 5.35 M/mm3 (4.60-6.20); Red Cell Distribution Width 14.8 % (11.5-17.5); White Blood Count 5.6 K/mm3 (4.8-10.8)
[2020-11-20 13:46] LABS: C-Reactive Protein 5.5 mg/L (0-4)
[2020-11-20 14:18] LABS: Erythrocyte Sedimentation Rate 17 mm/hr (0-20)
[2020-11-20 14:37] LABS: Eosinophils % 4 % (0-3); Lymphocytes % 30 % (10-50); Monocytes % 4 % (2-9); Neutrophils % 53 % (42-76); Platelet Estimate Normal; RBC Morphology Normal; Total Cells Counted 100
== END ==
PROVIDERS: Visit Provider Orthopaedic Surgery
DX: S82.301A Unspecified fracture of lower end of right tibia, initial encounter for closed fracture (principal); T81.30XA Disruption of wound, unspecified, initial encounter; T81.49XA Infection following a procedure, other surgical site, initial encounter
CPT/HCPCS: 36415; 85007; 85014; 85018; 85048; 85049; 85651; 86140

== ENCOUNTER → 2020-11-25 16:47 | Outpatient (CLI) | payer MEDICARE, MEDICAID, SELFPAY ==
[2020-11-25 17:13] LABS: Basophils # 0.1 K/mm3 (0-0.2); Basophils % 1.4 % (0.1-2.0); Eosinophils # 0.3 K/mm3 (0.0-0.4); Eosinophils % 4.4 % (0.1-12.0); Hematocrit 44.7 % (42.0-52.0); Hemoglobin 14.8 g/dL (14.1-18.0); Lymphocytes # 1.9 K/mm3 (0.7-4.5); Lymphocytes % 31.4 % (10-50); Mean Corpuscular Volume 78.5 fl (80-94); Mean Platelet Volume 7.7 fl (7.4-10.4); Monocytes # 0.3 K/mm3 (0.1-1.0); Monocytes % 4.9 % (1.7-9.3); Neutrophils # 3.5 K/mm3 (1.8-7.8); Neutrophils % 57.9 % (37.0-80.0); Platelet Count 294 K/mm3 (142-424); Red Blood Count 5.69 M/mm3 (4.60-6.20); Red Cell Distribution Width 15.3 % (11.5-17.5)
[2020-11-25 17:29] LABS: Chloride 107 mmol/L (98-107)
[2020-11-25 17:30] LABS: Potassium 4.2 mmoL/L (3.5-5.1); Sodium 143 mmol/L (136-145)
[2020-11-25 17:33] LABS: Anion Gap 18.2 mEq/L (5-15); Blood Urea Nitrogen 11 mg/dl (9-20); Calcium 10.7 mg/dl (8.4-10.2); Carbon Dioxide 22 mmol/L (22.0-30.0); Estimated Glomerular Filt Rate 115 ml/min (>60); GFR (African American) 140 ML/MIN (>60); Glucose 99 mg/dl (74-100)
[2020-11-25 17:38] LABS: C-Reactive Protein 2.3 mg/L (0-4)
[2020-11-25 18:49] LABS: Erythrocyte Sedimentation Rate 20 mm/hr (0-20)
== END ==
PROVIDERS: Visit Provider Orthopaedic Surgery
DX: J18.9 Pneumonia, unspecified organism (principal); S82.301A Unspecified fracture of lower end of right tibia, initial encounter for closed fracture; T81.30XA Disruption of wound, unspecified, initial encounter; T81.49XA Infection following a procedure, other surgical site, initial encounter; Z01.818 Encounter for other preprocedural examination; Z20.822 Contact with and (suspected) exposure to COVID-19
CPT/HCPCS: 36415; 80048; 85025; 85651; 86140; U0003

== ENCOUNTER 2020-11-26 09:43 | Day surgery (SDC) | payer MEDICARE, MEDICAID, SELFPAY ==
[2020-11-25 11:15] VITALS: BMI 30.7
[2020-11-26] VITALS (10 sets, daily range): BP systolic 130–151; BP diastolic 76–99; PULSE 67–92; RESP 16–18; TEMP 36.1–37; O2SAT 91–98
--- NOTE | 2020-11-26 13:20 | HMH.ANESCL ---
[facility] Anesthesia Checklist - Patient Identification Patient Identification: Arm Band - Structural Data Admitted From: Home Planned Operative Procedure/s: I&D Right Ankle Consent for Planned Operative Procedure(s) Verified: Yes Verified Documents: Surgical Consent, History and Physical - NPO Status Verified Time NPO: 00:00 - Additional verifications Anesthesia Reactions: No Hx Blood Transfusions: No Blood Transfusion Reaction: No - Airway Assessment C-Spine Mobility Assessed: Yes (mp2) TMJ Mobility Assessed: Yes Dentition: Poor Dentition - Neurological Assessment Level of Consciousness: Awake, Alert - Anesthesia Plan Anesthesia Risk discussed: Yes Anesthesia Plan: Verified ASA Class: II Anesthesia Type: General [facility] History I have reviewed the patient's past medical history: Yes Medical History: Reports:: Anxiety, Asthma, Gastroesophageal Reflux Disease(GERD), Hyperlipidemia, Hypertension Denies:: Cancer, Diabetes Mellitus Type 1, Diabetes Mellitus Type 2, Internal Pacemaker, Lung Disease, MRSA, Seizures *Have you ever received a pneumonia vaccine?: No *Have you received a flu vaccine this season?: No Other Medical History: Reports: Arthritis, Hypothyroidism. Denies: Blood Transfusion Reaction Anesthesia experience/problems:: nac Laterality Cases: Right: Arthroscopy Hip, Arthroscopy Shoulder, Total Hip Replacement, Other, Bilateral: Tonsillectomy Other Surgeries: Yes: Colonoscopy, EGD, Thyroidectomy, Other. No: Pacemaker Amputation: No Fractures: Yes - *Social History Smoking Status: Current every day smoker Tobacco Type: smokeless tobacco # Packs/Day (cigarettes): 1 Alcohol Intake: never Substance Use Type: denies use *Occupational Status:: disabled Housing: house Household Members: friend(s) *Travel in the last 8 weeks: None - Psychiatric History Pschychiatric History:: Reports:: Anxiety Family Hx:: No significant family history
--- NOTE | 2020-11-26 13:58 | P.PN_ITS ---
[facility] Anesthesia Record Part I Intake, IV Amount: 1,000 Estimated blood loss (mL): 5 Urine output (mL): 0 Blood Pressure: 130/86 SaO2: 91 Pulse Rate: 78 Respiratory Rate: 16 Temperature: 98.6 F Patient is:: Drowsy, Stable Stable to PACU at:: 13:55
--- NOTE | 2020-11-26 16:34 | HMH.OPNOTE ---
Date of procedure: 11/26/20 Pre-op Diagnosis:: R ankle postoperative wound dehiscence and infection Post-op Diagnosis:: same Procedure performed:: irrigation and debridement R ankle, wound vac application Surgeon:: Jennifer House MD Stapler Hand(s):: Debby Hoyos FRONT END ASSISTANT:: Dave Norris Anesthesia: GETA Estimated blood loss (mL): 5 Clinical Note:: 60yo M s/p external fixator application 08/04/20 followed by ORIF of a R tibial pilon fracture 08/19/20. He experienced postoperative dehiscence of his lateral ankle wound, which necessitated debridment and wound vac placement on 09/15/20. Cultures at that time were positive for pseudomonas. He completed 6 weeks of IV antibiotics and vac therapy, during which time inflammatory markers normalized. The wound plateaued in terms of contracture/closure and the decision was made to try coverate with Integra followed by split thickness skin grafting. Integra was placed 11/04/20 and has been covered with a wound vac, changed by home health several times per week. He returns to the OR today for removal of the Integra silicone layer and possible split thickness skin grafting. I've discussed the possiblity with the patient that the integra didn't take, which is possible given placement over tendon. If it did not, a second application is possible but referral to a plastic surgeon for evaluation for soft tissue transfer may be a better option. If grafting is possible, skin graft will be taken from the upper right thigh and a wound VAC placed over this graft. I discussed the risks of the procedure with the patient, including but not limited to: bleeding, infection, neurovascular or tendinous damage, persistent wound dehiscence with failure of Integra or graft adherence, possible need for further procedures including soft tissue transfer. The patient vocalized understanding and provided informed consent. Operative findings:: no purulence, no foul odor, skin healthy appearing but with mild-moderate erythema Integra partially took over the superior wound but exposed tendon remains inferiorly wound dimensions: total wound = 7.5cm L x 2.5cm W x 0.1cm D 3.3cm exposed tendon in inferior wound Operative note:: The patient was identified in preoperative holding and the right ankle signed by myself. Consent was reviewed and discussed with the patient, all questions answered. He was then taken to the OR where he was transferred to the operative table and all bony prominences well-padded. SCD was placed on the left lower extremity. 2 g Ancef were administered intravenously and general anesthesia induced. Once patient was asleep, splint was removed from the right lower extremity. The right lower extremity was then prepped and draped in the usual sterile fashion using a Betadine prep kit. Timeout was performed, identifying the correct patient, correct procedure, and correct site. The procedure was begun by removing the kwesi from the periphery of the Integra. The silicone layer was easily peeled off the wound, exposing the underlying tissue. The Integra appears to have partially taken, with some coverage of the superior wound, but the inferior wound still had exposed tendon. The total wound 7.5 cm long by 2.5 cm wide by 0.1 cm deep; 3.3 cm of exposed tendon in the inferior portion of the wound. The tendon appeared in good condition was not desiccated. There was no purulence, no drainage from the wound; soft tissue appears to have firmly adhered to the underlying substrate. The wound was swabbed for aerobic and anaerobic cultures. Curette was then used to lightly undermined the wound borders and stimulate some bleeding. The tendons were curetted lightly as well, and the wound copiously irrigated with sterile saline. There was no exposed bone and no exposed hardware seen. No purulence noted, no cloudy fluid or other drainage noted. The decision was made not to attempt another application of Integra but rather to reapply wound vac
[2020-11-27 07:25] VITALS: BP 145/92; PULSE 67; TEMP 36.1
--- NOTE | 2020-11-27 07:25 | HMH.ANESII ---
[facility] Anesthesia Record Part II Discharge Time: 14:25 Destination: Surgical Day Care (OP Surgery) PACU nurse assessment reviewed?: Yes Patient Condition:: Good Anesthesia Complications:: None Swallowing reflex intact?: Yes Cyanosis?: No Blood Pressure: 145/92 Pulse Rate: 67 Temperature: 97 F Mental Status: Alert & Oriented Pain level:: 0 Nausea and/or vomitting:: None Intake, IV Amount: 0
== END 2020-11-26 14:56 | disposition home or self-care (01) ==
LOC: OR 09:46
PROVIDERS: PCP Internal Medicine Adolescent Medicine; Visit Provider Orthopaedic Surgery
DX: T81.32XA Disruption of internal operation (surgical) wound, not elsewhere classified, initial encounter (principal); S82.871G Displaced pilon fracture of right tibia, subsequent encounter for closed fracture with delayed healing; L03.115 Cellulitis of right lower limb; I10 Essential (primary) hypertension; E78.5 Hyperlipidemia, unspecified; E03.9 Hypothyroidism, unspecified; Z79.899 Other long term (current) drug therapy; Z79.82 Long term (current) use of aspirin
CPT/HCPCS: 11042; 87070; 87075; 87077; 87205; 94640; 96374; J2405

== ENCOUNTER → 2020-12-09 09:32 | Outpatient (CLI) | payer MEDICARE, MEDICAID, SELFPAY ==
[2020-12-09 10:05] LABS: Basophils # 0.1 K/mm3 (0-0.2); Eosinophils # 0.3 K/mm3 (0.0-0.4); Eosinophils % 3.6 % (0.1-12.0); Hematocrit 42.1 % (42.0-52.0); Hemoglobin 13.8 g/dL (14.1-18.0); Lymphocytes # 2.1 K/mm3 (0.7-4.5); Lymphocytes % 29.3 % (10-50); Mean Corpuscular HGB Conc 32.9 g/dL (31.8-35.4); Mean Corpuscular Hemoglobin 25.7 pg (27.0-31.2); Mean Corpuscular Volume 78.2 fl (80-94); Mean Platelet Volume 8.2 fl (7.4-10.4); Monocytes # 0.4 K/mm3 (0.1-1.0); Monocytes % 5.9 % (1.7-9.3); Neutrophils # 4.3 K/mm3 (1.8-7.8); Neutrophils % 60.2 % (37.0-80.0); Platelet Count 288 K/mm3 (142-424); Red Blood Count 5.38 M/mm3 (4.60-6.20); Red Cell Distribution Width 16.7 % (11.5-17.5); White Blood Count 7.2 K/mm3 (4.8-10.8)
[2020-12-09 10:24] LABS: C-Reactive Protein 2.2 mg/L (0-4)
[2020-12-09 10:33] LABS: Erythrocyte Sedimentation Rate 14 mm/hr (0-20)
== END ==
PROVIDERS: Visit Provider Orthopaedic Surgery
DX: T81.30XA Disruption of wound, unspecified, initial encounter (principal)
CPT/HCPCS: 36415; 85025; 85651; 86140

== ENCOUNTER 2021-03-10 19:15 | Emergency (ER) | payer MEDICARE, MEDICAID, SELFPAY ==
--- NOTE | 2021-03-10 19:11 | ECG_ITS ---
APPROVED REPORT Exam: Resting ECG HR:67 bpm ECG Measurements Heart Rate 67 AXES AR 138 P 29 QRSd 110 QRS 253 QT 404 T 74 QTc 426 Conclusion Normal sinus rhythm Right superior axis deviation Pulmonary disease pattern Right ventricular hypertrophy Nonspecific T wave abnormality Abnormal ECG Electronically signed by : Nando Reddy MD 03/15/2021 21:06:22
--- NOTE | 2021-03-10 19:13 | XR_ITS ---
PROCEDURE INFORMATION: Exam: XR Chest Exam date and time: 03/10/21 07:13 PM Age: 60 years old Clinical indication: Sternal or substernal pain; Patient HX: Chest pain started yesterday. ; Additional info: Cp TECHNIQUE: Imaging protocol: XR of the chest. Views: 1 view. COMPARISON: CR XR CHEST PORTABLE PICC PLAC 09/16/20 01:14 PM FINDINGS: Lungs: Unremarkable. No consolidation. Pleural spaces: Unremarkable. No pleural effusion. No pneumothorax. Heart/Mediastinum: Unremarkable. No cardiomegaly. Bones/joints: Unremarkable. IMPRESSION: No acute findings.
[2021-03-10 19:16] VITALS: BP 163/74; PULSE 68; RESP 22; TEMP 36.8; O2SAT 97; BMI 30.7
[2021-03-10 19:24] LABS: Basophils # 0.2 K/mm3 (0-0.2); Basophils % 1.7 % (0.1-2.0); Eosinophils # 0.2 K/mm3 (0.0-0.4); Eosinophils % 2.2 % (0.1-12.0); Hematocrit 49.7 % (42.0-52.0); Hemoglobin 16.4 g/dL (14.1-18.0); Lymphocytes # 2.3 K/mm3 (0.7-4.5); Lymphocytes % 27.2 % (10-50); Mean Corpuscular HGB Conc 32.9 g/dL (31.8-35.4); Mean Corpuscular Hemoglobin 29.1 pg (27.0-31.2); Mean Corpuscular Volume 88.3 fl (80-94); Mean Platelet Volume 8.6 fl (7.4-10.4); Monocytes # 0.5 K/mm3 (0.1-1.0); Monocytes % 6.2 % (1.7-9.3); Neutrophils # 5.4 K/mm3 (1.8-7.8); Neutrophils % 62.7 % (37.0-80.0); Platelet Count 350 K/mm3 (142-424); Red Blood Count 5.63 M/mm3 (4.60-6.20); Red Cell Distribution Width 14.9 % (11.5-17.5); White Blood Count 8.6 K/mm3 (4.8-10.8)
[2021-03-10 19:26] LABS: Chloride 109 mmol/L (98-107)
[2021-03-10 19:27] LABS: Potassium 3.1 mmoL/L (3.5-5.1); Sodium 146 mmol/L (136-145)
[2021-03-10 19:29] LABS: Alanine Aminotransferase 104 U/L (12-78); Alkaline Phosphatase 90 U/L (38-126); Anion Gap 19.1 mEq/L (5-15); Aspartate Amino Transferase 70 U/L (17-59); Bilirubin,Total 1.4 mg/dl (0.2-1.3); Blood Urea Nitrogen 14 mg/dl (9-20); Carbon Dioxide 21 mmol/L (22.0-30.0); Creatinine Clearance Estimated 111 mL/min (50-200); Estimated Glomerular Filt Rate 86 ml/min (>60); GFR (African American) 105 ML/MIN (>60)
[2021-03-10 19:30] LABS: Albumin Level 5.1 g/dl (3.5-5.0); Albumin/Globulin Ratio 1.4 (1.1-1.8); Calcium 10.1 mg/dl (8.4-10.2); Globulin 3.7 g/dL (1.3-3.2); Glucose 108 mg/dl (74-100); Total Protein,Serum 8.8 g/dl (6.3-8.2)
[2021-03-10 19:42] LABS: Coronavirus 19, PCR Not Detected (NotDetected); Influenza A, PCR Not Detected (NotDetected); Influenza B, PCR Not Detected (NotDetected)
[2021-03-10 19:54] LABS: Troponin I < 0.01 ng/ml (0.00-0.034)
--- NOTE | 2021-03-10 21:23 | HMH.EDCP ---
ED Disposition Clinical Impression: Atypical chest pain Disposition: Home, Self-Care Condition on Discharge: Good Instructions: DI for Atypical Chest Pain Additional Instructions: Follow-up with your primary care within 2 to 3 days. Return to the ED for any new or worsening symptoms. Use the medication as prescribed. Prescriptions: Famotidine [Acid Controller] 20 mg PO DAILY 14 Days #14 tab Transmission Status: Pending to [facility] Ondansetron [Zofran 4mg ODT] 4 mg PO TIDP PRN 3 Days #9 tab PRN Reason: Nausea Transmission Status: Pending to [facility] Referrals: Nando Reddy MD [Primary Care Provider] - - Critical Care Critical Care Time: No Attestation: On 03/10/21, the high probability of a clinically significant, sudden or life threatening deterioration of the following system(s) required my full and direct attention, intervention and personal management. The time I documented below is in addition to time spent performing reported procedures but includes the following listed in this critical care notation. Medical Decision Making - Medical Records Medical records reviewed: Yes: I reviewed the patient's medical records. - [place] Inquiry Pt receiving controlled substance: No Vital Signs: 03/10/21 19:16 Temperature 98.2 F Temperature Source Oral Pulse Rate [Right Brachial] 68 Respiratory Rate 22 Blood Pressure [Right Arm] 163/74 H Blood Pressure Mean [Right Arm] 103 Blood Pressure Source [Right Arm] Automatic Cuff Blood Pressure Position [Right Arm] Sitting 02 Sat by Pulse Oximetry 97 Oxygen Delivery Method Room Air - Lab Data Lab Results 03/10/21 19:15: WBC 8.6, RBC 5.63, Hgb 16.4, Hct 49.7, MCV 88.3, MCH 29.1, MCHC 32.9, RDW 14.9, Plt Count 350, MPV 8.6, Neut % (Auto) 62.7, Lymph % (Auto) 27.2, Glades % (Auto) 6.2, Eos % (Auto) 2.2, Baso % (Auto) 1.7, Neut # (Auto) 5.4, Lymph # (Auto) 2.3, Glades # (Auto) 0.5, Eos # (Auto) 0.2, Baso # (Auto) 0.2 03/10/21 19:15: Sodium 146 H, Potassium 3.1 L, Chloride 109 H, Carbon Dioxide 21 L, Anion Gap 19.1 H, BUN 14, Creatinine 0.90, Estimated Creat Clear 111, Estimated GFR 86, Est GFR ( Amer) 105, Glucose 108 H, Calcium 10.1, Total Bilirubin 1.4 H, AST 70 H, ALT 104 H, Alkaline Phosphatase 90, Troponin I < 0.01, Total Protein 8.8 H D, Albumin 5.1 H, Globulin 3.7 H, Albumin/Globulin Ratio 1.4 03/10/21 19:15: NT-Pro-B Natriuret Pep 32.3, TSH 2.08, Thyroxine (T4) 11.4 H 03/10/21 19:20: SARS-CoV-2 (PCR) Not detected, Influenza A Untype (PCR) Not detected, Influenza Type B (PCR) Not detected 03/10/21 22:20: Troponin I < 0.01 Result diagrams: 03/10/21 19:15 03/10/21 19:15 Orders (Tests/Meds): ED MEDICATIONS Discontinued Medications Generic Name Dose Route Start Last Admin Trade Name Freq PRN Reason Stop Dose Admin Belladonna Alkaloids 60 ml 03/10/21 21:18 03/10/21 21:20 Gi Cocktail 60ml Udc PO 03/10/21 21:19 60 ml ONCE ONE Administration ORDERS Category Date Time Status Troponin I Q3H Lab 03/11/21 01:15 Ordered - Radiology Data #1 Image(s): Chest Image Reviewed: Yes I reviewed the patient's radiology image, Yes I have reviewed radiologist's interpretation PROCEDURE INFORMATION: Exam: XR Chest Exam date and time: 03/10/21 07:13 PM Age: 60 years old Clinical indication: Sternal or substernal pain; Patient HX: Chest pain started yesterday. ; Additional info: Cp TECHNIQUE: Imaging protocol: XR of the chest. Views: 1 view. COMPARISON: CR XR CHEST PORTABLE PICC PLAC 09/16/20 01:14 PM FINDINGS: Lungs: Unremarkable. No consolidation. Pleural spaces: Unremarkable. No pleural effusion. No pneumothorax. Heart/Mediastinum: Unremarkable. No cardiomegaly. Bones/joints: Unremarkable. IMPRESSION: No acute findings. - ECG Data Tracing #1 I reviewed this ECG and interpreted as documented below: Normal sinus rhythm rate of 67 right superior axis deviation rig
[2021-03-10 21:37] LABS: NT Pro Brain Natriuretic Pep. 32.3 pg/mL (0-125)
[2021-03-10 21:45] LABS: T4 (Thyroxine) 11.4 ug/dl (5.53-11.0)
[2021-03-10 21:58] LABS: Thyroid Stimulating Hormone 2.08 uIU/mL (0.465-4.68)
[2021-03-10 22:53] LABS: Troponin I < 0.01 ng/ml (0.00-0.034)
[2021-03-10 23:54] VITALS: BP 179/95; PULSE 75; RESP 18; TEMP 36.9; O2SAT 98
== END 2021-03-10 23:57 | disposition home or self-care (01) ==
PROVIDERS: Emergency Medicine; Emergency Provider Student in an Organized Health Care Education/Training Program; PCP Internal Medicine Adolescent Medicine
DX: R07.89 Other chest pain (principal); K21.9 Gastro-esophageal reflux disease without esophagitis; E78.5 Hyperlipidemia, unspecified; I10 Essential (primary) hypertension; E03.9 Hypothyroidism, unspecified; F17.210 Nicotine dependence, cigarettes, uncomplicated; Z79.899 Other long term (current) drug therapy; R06.02 Shortness of breath
CPT/HCPCS: 71045; 80053; 83880; 84436; 84443; 84484; 85025; 93005; 99283; U0003

== ENCOUNTER → 2021-09-20 08:39 | Outpatient (POV) | payer MEDICARE, MEDICAID, SELFPAY ==
[2021-09-20 09:07] VITALS: BP 160/96; PULSE 72; RESP 20; TEMP 36.9; O2SAT 97; BMI 28.5
--- NOTE | 2021-09-20 10:48 | HMH.PMCON ---
Assessment and Plan (1) Chronic pain of right lower extremity Status: Acute Category: Medical Code(s): M79.604 - Pain in right leg; G89.29 - Other chronic pain (2) Chronic pain of right lower extremity Status: Acute Category: Medical Code(s): M79.604 - Pain in right leg; G89.29 - Other chronic pain - Assessment and plan all Dx Assessment and Plan for all problems:: We will refer the patient to Dr. Leyva foot and ankle specialty. For evaluation and treatment. HPI - Data of Consult Patient: new to practice Consult date: 09/20/21 Requesting Physician: Jefferson Fine CRNA Primary Care Provider: Vashti Hameed - Consult Narrative Reason for consult: Right ankle pain History of present illness: Mr. Langford is a 61 year old male CC: Jefferson Fine CRNA [facility] History Medical History: Reports:: Anxiety, Asthma, Diabetes Mellitus Type 1, Gastroesophageal Reflux Disease(GERD), Hyperlipidemia, Hypertension Denies:: Cancer, Diabetes Mellitus Type 2, Internal Pacemaker, Lung Disease, MRSA, Seizures *Have you ever received a pneumonia vaccine?: No *Have you received a flu vaccine this season?: No Other Medical History: Reports: Arthritis, Hypothyroidism. Denies: Blood Transfusion Reaction Laterality Cases: Right: Arthroscopy Hip, Arthroscopy Shoulder, Total Hip Replacement, Other, Bilateral: Tonsillectomy Other Surgeries: Yes: Colonoscopy, EGD, Thyroidectomy, Other. No: Pacemaker Amputation: No Fractures: Yes - *Social History Smoking Status: Former smoker Tobacco Type: smokeless tobacco # Packs/Day (cigarettes): 0 Alcohol Intake: never Substance Use Type: denies use *Occupational Status:: disabled Housing: house Household Members: friend(s) *Travel in the last 8 weeks: None - Psychiatric History Pschychiatric History:: Reports:: Anxiety Family Hx:: No significant family history Review of Systems - Review of Systems Patient is a 58-year-old white male that presents to our clinic today with right ankle pain. Patient had extensive right ankle fracture with ORIF in 2020. Patient still has obvious scar on the lateral border of the right ankle. Patient describes pain in the right ankle as constant, sharp, stabbing, dull, aching. Patient rates the pain 8/10. Patient is awake alert oriented x3. Gait is antalgic due to right ankle pain. Strength lower extremities normal on the left. However right lower extremity somewhat guarded secondary to pain in the right ankle. Some gross sensory deficit on the right lower extremity. Left normal. Meds Home Medications Medication Instructions Recorded Confirmed Type Fenofibrate 160 mg PO DAILY 04/12/18 09/20/21 History Levothyroxine Sodium 100 mcg PO DAILY 04/12/18 09/20/21 History [Levothyroxine 100mcg (0.1MG) Tab] Atorvastatin Calcium [Lipitor 20mg 20 mg PO HS 08/03/20 09/20/21 History Tab] Fluticasone Propionate [Flonase 2 spray NS DAILY 08/03/20 09/20/21 History Allergy Relief NS] risperiDONE [Risperidone] 2 mg PO HS 08/03/20 09/20/21 History Ergocalciferol (Vitamin D2) 50,000 unit PO WEEKLY 08/18/20 09/20/21 History [Drisdol 50,000 units (1.25mg) capsule] lisinopriL [Zestril 10mg Tab] 10 mg PO DAILY 08/18/20 09/20/21 History Alendronate Sodium [Fosamax 70mg 70 mg PO WEEKLY 08/19/20 09/20/21 History Tablet] Icosapent Ethyl [Vascepa] 2 gm PO BID 08/19/20 09/20/21 History Tizanidine HCl [Zanaflex 4mg 4 mg PO TIDP PRN 08/19/20 09/20/21 History tab] Famotidine [Pepcid 20mg Tablet] 20 mg PO BID 09/15/20 09/20/21 History Docusate Sodium [Docusate Sodium 100 mg PO BIDP PRN cap 09/18/20 09/20/21 Rx 100mg Cap] Ondansetron [Zofran 4mg ODT] 4 mg PO TIDP PRN 3 Days #9 tab 03/10/21 09/20/21 Rx Famotidine [Acid Controller] 20 mg PO DAILY 09/20/21 09/20/21 History Allergies Allergy/AdvReac Type Severity Reaction Status Date / Time milk [MILK] Allergy Unknown Verified 12/09/20 14:39 yeast, dried [YEAST] Allergy Unkn
== END ==
PROVIDERS: Visit Provider Nurse Anesthetist, Certified Registered
DX: M79.604 Pain in right leg (principal); G89.29 Other chronic pain
CPT/HCPCS: 99202; G0463

== ENCOUNTER → 2021-10-15 10:02 | Outpatient (CLI) | payer MEDICARE, MEDICAID, SELFPAY ==
--- NOTE | 2021-10-15 10:16 | XR_ITS ---
FINAL REPORT CLINICAL HISTORY: foot pain FINDINGS: LEFT FOOT Three views of the left foot demonstrate no acute fracture or dislocation. There are mild and moderate degenerative changes which are greatest at the midfoot. There is a chronic deformity of the proximal 1st proximal phalanx. This finding could represent sequela of prior injury. The soft tissues are unremarkable. IMPRESSION: Degenerative/chronic change without acute bony abnormality. Reviewed, Interpreted and Dictated by Taye Fritz III, MD Transcribed by Valeria Sullivan Authenticated by Taye Fritz III, MD on 10/15/2021 11:34:39 AM [facility]
--- NOTE | 2021-10-15 10:16 | XR_ITS ---
FINAL REPORT CLINICAL HISTORY: foot pain FINDINGS: RIGHT FOOT Three views of the right foot demonstrate no acute fracture or dislocation. The bones are osteopenic. There are moderate degenerative changes. There are postoperative changes of the distal tibia and fibula. The soft tissues are unremarkable. IMPRESSION: Degenerative change without acute bony abnormality. Osteopenia. Reviewed, Interpreted and Dictated by Taye Fritz III, MD Transcribed by Valeria Sullivan Authenticated by Taye Fritz III, MD on 10/15/2021 12:17:56 PM [facility]
--- NOTE | 2021-10-15 10:16 | XR_ITS ---
FINAL REPORT CLINICAL HISTORY: ankle pain FINDINGS: LEFT ANKLE: Three views of the left ankle were obtained. There is no acute fracture or dislocation. There are mild degenerative changes of the ankle. There are moderate degenerative changes of the dorsal midfoot. There are calcaneal spurs. There is no soft tissue abnormality. IMPRESSION: Degenerative change without acute bony abnormality. Reviewed, Interpreted and Dictated by Taye Fritz III, MD Transcribed by Valeria Sullivan Authenticated by Taye Fritz III, MD on 10/15/2021 11:34:41 AM [facility]
--- NOTE | 2021-10-15 10:16 | XR_ITS ---
FINAL REPORT CLINICAL HISTORY: ankle pain COMPARISON: October 30, 2020 FINDINGS: RIGHT ANKLE Three views of the right ankle were obtained. There is no acute fracture or dislocation. There are moderate degenerative changes. There are postoperative changes of the distal tibia and fibula. A screw plate and multiple screws are present. There also postoperative changes of the calcaneal tuberosity. There are calcaneal spurs. There is a chronic calcification inferior to the lateral malleolus. IMPRESSION: Postoperative and degenerative changes without acute bony abnormality. Reviewed, Interpreted and Dictated by Taye Fritz III, MD Transcribed by Valeria Sullivan Authenticated by Taye Fritz III, MD on 10/15/2021 12:17:52 PM [facility]
== END ==
PROVIDERS: PCP Internal Medicine Adolescent Medicine; Visit Provider Orthopaedic Surgery
DX: G89.29 Other chronic pain; M79.604 Pain in right leg; M79.672 Pain in left foot; M79.671 Pain in right foot; M25.572 Pain in left ankle and joints of left foot; M25.571 Pain in right ankle and joints of right foot; M79.605 Pain in left leg
CPT/HCPCS: 73610; 73630

== ENCOUNTER 2021-10-15 12:01 | Outpatient (RCR) | payer MEDICARE, MEDICAID, SELFPAY | END 2021-10-15 13:00 | disposition home or self-care (01) | LOC: PT 12:01 | PROVIDERS: Visit Provider Orthopaedic Surgery | DX: M19.171 Post-traumatic osteoarthritis, right ankle and foot (principal); M19.072 Primary osteoarthritis, left ankle and foot; M19.071 Primary osteoarthritis, right ankle and foot ==

== ENCOUNTER 2022-10-09 09:55 | Emergency (ER) | payer MEDICARE, MEDICAID, SELFPAY ==
[2022-10-09 10:00] VITALS: BP 116/93; PULSE 103; RESP 18; TEMP 36.8; O2SAT 96; BMI 28.8
--- NOTE | 2022-10-09 10:14 | EXP.UTC ---
Discharge Plan Disposition Patient Disposition: Home, Self-Care Condition: Good Prescriptions Prescriptions: New prednisone 10 mg tablet 10 mg PO BID 5 Days Qty: 10 0RF amoxicillin-pot clavulanate 875-125 mg Tablet 1 tab PO Q12H Qty: 20 0RF guaifenesin [Mucinex] 600 mg tablet extended release 12hr 600 mg PO BID PRN (Reason: cough/congestion) Qty: 20 0RF No Action diclofenac sodium [Voltaren Arthritis Pain] 1 % gel 2 g TOPICAL QID Qty: 100 2RF Rx Instructions: apply to single elbow, wrist or hand; for hand includes palm/fingers/back of hand levothyroxine 100 MCG tablet 100 mcg PO DAILY fenofibrate 160 MG tablet 160 mg PO DAILY Label Comments: TAKE 1 TABLET BY MOUTH EVERY DAY famotidine 20 MG tablet 20 mg PO BID docusate sodium 100 MG capsule 100 mg PO BIDP PRN (Reason: Constipation) 0RF ondansetron 4 MG tablet,disintegrating 4 mg PO TIDP PRN (Reason: Nausea) 3 Days Qty: 9 0RF atorvastatin 20 MG tablet 20 mg PO HS risperidone 2 MG tablet 2 mg PO HS fluticasone propionate 9.9 ML spray,suspension 2 spray NS DAILY lisinopril 10 MG tablet 10 mg PO DAILY ergocalciferol (vitamin D2) 50,000 UNIT capsule 50,000 unit PO WEEKLY tizanidine 4 MG tablet 4 mg PO TIDP PRN (Reason: MUSCLE SPASMS) alendronate 70 MG tablet 70 mg PO WEEKLY icosapent ethyl 1 GM capsule 2 gm PO BID famotidine 20 MG tablet 20 mg PO DAILY Referrals Follow up/Referrals: Nando Reddy MD [Primary Care Provider] - See instructions Activity Restrictions/Add. Instructions Additional Instructions/Restrictions: *Monitor Temp, Over the counter Motrin or Tylenol as directed/as needed Tylenol every 4 hours and Motrin every 6 hours (as long as your family doctor has told you that you can take it) for fever or pain. and straight to ER if unable to lower temp less than 101.0 after medication given *Warm salt water gargles may help to soothe the throat *Throat Lozenges? *Warm fluids like tea with honey may help to soothe the throat? *Sleep elevated *Humidifier/Vaporizer Your throat swab was sent for culture. Those results are typically sent to your primary care. Be sure to follow up in 2-3 days with your family doctor/primary care physician if no improvement so they can review those result and treat if necessary. If you don?t have a primary care doctor, I recommend you get one but in the mean time, you will have to return to a walk in clinic Follow up IMMEDIATELY for new or worsening symptoms or no Noticeable improvement over the next 48-72 hours. 911 for difficulty breathing or swallowing Clinical Impressions Clinical Impression: Bronchitis Sinusitis Qualifiers: Sinusitis location: unspecified location Chronicity: unspecified Qualified Code(s): J32.9 - Chronic sinusitis, unspecified Instructions Patient Instructions: Acute Bronchitis, DI for Sinusitis Discharge ED Provider: Betty Sena [facility] [place] HPI General Stated complaint: cough, sore throat, weakness Mode of Arrival: Ambulatory Source of Information: Patient Limitations: No Limitations Time Seen by Provider: 10/09/22 10:14 Description of Symptoms (Recalled from Triage Doc. by RN): PATIENT C/O SORE THROAT, FEVER, AND PRODUCTIVE COUGH WITH GREEN SPUTUM THAT STARTED LAST NIGHT HEENT Symptoms (Recalled from RN notes): Yes Resp Symptoms (Recalled from RN notes): Yes Skin Symptoms (Recalled from RN notes): No MS Symptoms (Recalled from RN notes): No Functional Status (Recalled from RN notes): WNL History of Present Illness Provider Complaint: Patient states that about 5mth ago he had sore throat and they treated him with allergy medication and it got better but has been having nasal congestion/pressure and drainage for the last week and last night he started feeling like he had a fever, having drainage in the back of his throat, sore throat, fever sin
--- NOTE | 2022-10-09 10:16 | XR_ITS ---
PROCEDURE INFORMATION: Exam: XR Chest Exam date and time: 10/09/2022 10:35 AM Age: 62 years old Clinical indication: Cough and shortness of breath TECHNIQUE: Imaging protocol: Radiologic exam of the chest. Views: 2 views. Total images: 2 COMPARISON: CR XR CHEST PORTABLE 03/10/2021 7:17 PM FINDINGS: Lungs: Unremarkable. No consolidation. Pleural spaces: Unremarkable. No pleural effusion. No pneumothorax. Heart/Mediastinum: Unremarkable. No cardiomegaly. Bones/joints: Unremarkable. IMPRESSION: No acute findings.
[2022-10-09 10:31] LABS: UTC Influenza A Antigen Negative (Negative); UTC Strep Screen (Rapid) Negative (Negative)
[2022-10-09 10:32] LABS: UTC Influenza B Antigen Negative (Negative)
[2022-10-09 10:56] VITALS: BP 116/93; PULSE 103; RESP 18; TEMP 36.8; O2SAT 96
== END 2022-10-09 11:52 | disposition home or self-care (01) ==
PROVIDERS: Emergency Provider Nurse Practitioner; PCP Internal Medicine Adolescent Medicine
DX: J20.9 Acute bronchitis, unspecified (principal); J01.90 Acute sinusitis, unspecified; Z20.822 Contact with and (suspected) exposure to COVID-19
CPT/HCPCS: 71046; 87804; 87880; 99212; 99214; C9803; G0463; U0003; U0005

== ENCOUNTER 2023-05-15 07:18 | Emergency (ER) | payer MEDICARE, MEDICAID, SELFPAY ==
[2023-05-15] VITALS (9 sets, daily range): BP systolic 143–173; BP diastolic 100–119; PULSE 65–78; RESP 16–21; TEMP 36.6; O2SAT 94–99; BMI 27.0
--- NOTE | 2023-05-15 07:18 | ECG_ITS ---
APPROVED REPORT Exam: Resting ECG HR:70 bpm ECG Measurements Heart Rate 70 AXES OR 161 P 48 QRSd 106 QRS -64 QT 402 T 67 QTc 423 Conclusion SINUS RHYTHM INDETERMINATE AXIS ABNORMAL ECG UNCONFIRMED REPORT Electronically signed by : Nando Reddy MD 05/15/2023 17:49:08
--- NOTE | 2023-05-15 07:22 | XR_ITS ---
FINAL REPORT TECHNIQUE: Single view chest CLINICAL HISTORY: cp COMPARISON: 10/09/2022 FINDINGS: A single view of the chest was obtained. The heart and mediastinum are within normal limits. The lungs are clear. There is no pneumothorax. Osseous structures are unremarkable. IMPRESSION: No acute cardiopulmonary process. Reviewed, Interpreted and Dictated by Hien Harp MD Transcribed by Jolene Coy Authenticated and [facility]
--- NOTE | 2023-05-15 07:23 | HMH.EDGENADL ---
Discharge Plan Disposition Patient Disposition: Home, Self-Care Chief Complaint: Chest Pain Prescriptions Prescriptions: No Action diclofenac sodium [Voltaren Arthritis Pain] 1 % gel 2 g TOPICAL QID Qty: 100 2RF Rx Instructions: apply to single elbow, wrist or hand; for hand includes palm/fingers/back of hand levothyroxine 100 MCG tablet 100 mcg PO DAILY fenofibrate 160 MG tablet 160 mg PO DAILY Patient Comments: TAKE 1 TABLET BY MOUTH EVERY DAY famotidine 20 MG tablet 20 mg PO BID docusate sodium 100 MG capsule 100 mg PO BIDP PRN (Reason: Constipation) 0RF ondansetron 4 MG tablet,disintegrating 4 mg PO TIDP PRN (Reason: Nausea) 3 Days Qty: 9 0RF prednisone 10 mg tablet 10 mg PO BID 5 Days Qty: 10 0RF amoxicillin-pot clavulanate 875-125 mg Tablet 1 tab PO Q12H Qty: 20 0RF guaifenesin [Mucinex] 600 mg tablet extended release 12hr 600 mg PO BID PRN (Reason: cough/congestion) Qty: 20 0RF atorvastatin 20 MG tablet 20 mg PO HS risperidone 2 MG tablet 2 mg PO HS fluticasone propionate 9.9 ML spray,suspension 2 spray NS DAILY lisinopril 10 MG tablet 10 mg PO DAILY ergocalciferol (vitamin D2) 50,000 UNIT capsule 50,000 unit PO WEEKLY tizanidine 4 MG tablet 4 mg PO TIDP PRN (Reason: MUSCLE SPASMS) alendronate 70 MG tablet 70 mg PO WEEKLY icosapent ethyl 1 GM capsule 2 gm PO BID famotidine 20 MG tablet 20 mg PO DAILY Referrals Follow up/Referrals: Nando Reddy MD [Primary Care Provider] - See instructions Ruben Miles MD [Staff Physician] - See instructions Activity Restrictions/Add. Instructions Additional Instructions/Restrictions: At this time it was felt you are safe to be discharged home. If new or worsening symptoms please do not hesitate to return the emergency department. Please follow-up with cardiology as discussed. Clinical Impressions Clinical Impression: Chest pain Discharge ED Provider: Franc Jauregui General Adult HPI General Chief complaint: Chest Pain Stated complaint: CHESTPAIN Time Seen by Provider: 05/15/23 07:22 History of Present Illness HPI narrative: Patient is a 62-year-old male with past medical history of hypothyroidism, hypertension who presents emergency department for evaluation of chest pain. Onset was acute, 48 hours ago. Patient had an acute worsening this morning, substernal, left-sided. Due to persistent symptoms he presents here for continued evaluation. No other acute complaints at this time. Related Data Home Medications Medication Instructions Recorded Confirmed fenofibrate 160 mg tablet 160 mg PO DAILY Cholesterol 04/12/18 10/15/21 levothyroxine 100 mcg tablet 100 mcg PO DAILY hypothyrodism 04/12/18 10/15/21 atorvastatin 20 mg tablet 20 mg PO HS Cholesterol 08/03/20 10/15/21 fluticasone propionate 50 2 spray NS DAILY Allergy symptoms 08/03/20 10/15/21 mcg/actuation nasal spray,suspension risperidone 2 mg tablet 2 mg PO HS Restless leg syndrome 08/03/20 10/15/21 ergocalciferol (vitamin D2) 1,250 50,000 unit PO WEEKLY Diet 08/18/20 10/15/21 mcg (50,000 unit) capsule supplement lisinopril 10 mg tablet 10 mg PO DAILY Hypertension 08/18/20 10/15/21 alendronate 70 mg tablet 70 mg PO WEEKLY Osteoporosis 08/19/20 10/15/21 icosapent ethyl 1 gram capsule 2 gm PO BID TRIGLYCERIDES 08/19/20 10/15/21 tizanidine 4 mg tablet 4 mg PO TIDP PRN MUSCLE SPASMS 08/19/20 10/15/21 famotidine 20 mg tablet 20 mg PO BID GERD 09/15/20 10/15/21 famotidine 20 mg tablet 20 mg PO DAILY GERD 09/20/21 10/15/21 Previous Rx's Medication Instructions Recorded docusate sodium 100 mg capsule 100 mg PO BIDP PRN Constipation 09/18/20 ondansetron 4 mg disintegrating 4 mg PO TIDP PRN Nausea 3 days #9 03/10/21 tablet tabs diclofenac sodium 1 % topical gel 2 g topical QID #100 grams 10/15/21 (Voltaren Arthritis Pain) amoxicillin 875 mg-potassium 1 tab PO Q
[2023-05-15 07:36] LABS: Basophils # 0.1 K/mm3 (0-0.2); Basophils % 1.4 % (0.1-2.0); Eosinophils # 0.3 K/mm3 (0.0-0.4); Hemoglobin 16.6 g/dL (14.1-18.0); Lymphocytes # 1.8 K/mm3 (0.7-4.5); Mean Corpuscular HGB Conc 35.3 g/dL (31.8-35.4); Mean Corpuscular Hemoglobin 32.3 pg (27.0-31.2); Mean Corpuscular Volume 91.4 fl (80-94); Mean Platelet Volume 8.6 fl (7.4-10.4); Monocytes # 0.4 K/mm3 (0.1-1.0); Monocytes % 6.3 % (1.7-9.3); Neutrophils # 3.9 K/mm3 (1.8-7.8); Neutrophils % 60.3 % (37.0-80.0); Platelet Count 223 K/mm3 (142-424); Red Blood Count 5.14 M/mm3 (4.60-6.20); Red Cell Distribution Width 13.7 % (11.5-17.5); White Blood Count 6.4 K/mm3 (4.8-10.8)
--- NOTE | 2023-05-15 07:40 | PC.NURSE ---
RAD at BS
[2023-05-15 07:53] LABS: Alanine Aminotransferase 41 U/L (12-78); Albumin Level 4.7 g/dl (3.5-5.0); Albumin/Globulin Ratio 1.4 (1.1-1.8); Alkaline Phosphatase 56 U/L (38-126); Anion Gap 16.8 mEq/L (5-15); Aspartate Amino Transferase 38 U/L (17-59); Bilirubin,Total 0.7 mg/dl (0.2-1.3); Blood Urea Nitrogen 8 mg/dl (9-20); Calcium 9.1 mg/dl (8.4-10.2); Carbon Dioxide 24 mmol/L (22.0-30.0); Chloride 106 mmol/L (98-107); Creatinine Clearance Estimated 89 mL/min (50-200); Estimated Glomerular Filt Rate 86 ml/min (>60); GFR (African American) 104 ML/MIN (>60); Globulin 3.3 g/dL (1.3-3.2); Glucose 111 mg/dl (74-100); Potassium 3.8 mmoL/L (3.5-5.1); Sodium 143 mmol/L (136-145)
--- NOTE | 2023-05-15 07:53 | PC.NURSE ---
PT FEELING MUCH BETTER PS: 09/16
[2023-05-15 08:10] LABS: Troponin I < 0.01 ng/ml (0.00-0.034)
--- NOTE | 2023-05-15 08:13 | PC.NURSE ---
CARDIOLOGY NOTIFIED OF CONSULT AT THIS TIME
--- NOTE | 2023-05-15 09:33 | PC.NURSE ---
jericho olivia at bedside
--- NOTE | 2023-05-15 09:53 | CA_ITS ---
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 Ht: 5 ft 8 in Wt: 178lbs BSA: 1.94 BP: 173/119 mmHg Indications: CP,DM,EX SMOKER,HTN,HLD.GERD 2D Dimensions LVOT 2.20 cm (M/F) 1.5-2.5 LA Volume 39.60 mL LA Volume Index 20.31 mL/m2 (M/F) 16-34 M-Mode Dimensions RVDd 2.71 cm (0.9-2.6) LA Diam 3.96 cm (1.9-4.0) LVDd 4.24 cm (3.5-5.7) Ao Diam 3.46 cm (2.0-3.7) LVDs 2.78 cm (3.5-5.7) IVSd 1.21 cm (0.6-1.1) PWd 0.36 cm (0.6-1.1) EF (Teich) 63.90% FS 34.40% EDV (Teich) 80.40 mL TAPSE 1.98 (<1.7) ESV (Teich) 29.00 mL LV Diastology E Decel Time 237.00 (160-240 msec) E/A Ratio 0.9 MED E' 5.20 (< 7 cm/sec) E'/MED E' Ratio 14.27 (>14) LAT E' 5.20 (<10 cm/sec) E/LAT E' Ratio 14.27 (>14) Aortic Valve LVOT Max 84.00 (70-110 cm/s) LVOT VTI 19.98 cm AoV Peak Scott. 107.00 (50-130 cm/s) AO Peak GR. 4.60 mmHg AO Mean GR. 2.60 (<5 mmHg) AO VTI 25.96 (18-25 cm) LINDA (VTI) 2.93 (2.5-4.5 cm2) Mitral Valve MV E Max Scott. 74.00 (40-130 cm/s) MV A Velocity 80.00 (40-130 cm/s) E/A Ratio 0.92 MV Decel. Time 237.00 (160-240 ms) MV PHT 69.00 ms Pulmonary Valve PV Peak Velocity 68.00 (50-150 cm/s) Left Ventricle The left ventricle is normal size. The left ventricular systolic function is normal. The left ventricular ejection fraction is within the normal range. There is increased LV wall thickness. There is normal LV segmental wall motion. The left ventricular diastolic function is normal. LVEF is 50-55%. Right Ventricle The right ventricle is normal size. The right ventricular systolic function is normal. Atria The left atrium size is normal. The right atrium size is normal. There is no Doppler evidence of interatrial shunt. Aortic Valve The aortic valve is mildly thickened. There is no aortic valvular stenosis. No aortic regurgitation is present. Mitral Valve The mitral valve leaflets are mildly thickened. No evidence of mitral valve stenosis. Mild mitral regurgitation. Tricuspid Valve Tricuspid valve leaflets are thin and pliable. Trace tricuspid regurgitation. There is insufficient TR jet to estimate RVSP. Pulmonic Valve The pulmonary valve is normal in structure. Trace pulmonic regurgitation. Great Vessels The aortic root is normal in size. The ascending aorta is normal in size. IVC is normal in size and collapses >50% with inspiration. Pericardium There is no pericardial effusion. There is no pleural effusion. Other Information Study Quality: Fair Conclusion Normal biventricular systolic function. No significant valvular stenosis or regurgitation. Electronically signed by : Mckayla Zuniga MD 05/15/2023 12:09:39
--- NOTE | 2023-05-15 11:00 | PC.NURSE ---
Dr. Poole and Lashanda Reyes APRN from Cardiology are at bedside
[2023-05-15 11:04] LABS: Troponin I < 0.01 ng/ml (0.00-0.034)
--- NOTE | 2023-05-15 12:52 | EXP.CARD.CON ---
History of Present Illness History of Present Illness Consult date: 05/15/23 Requesting physician: Franc Jauregui Consult reason: chest pain Chief complaint: chest pain History of present illness: This is a 62-year-old white gentleman who presented to the emergency department complaints of chest pain. The patient states that he had sudden onset of chest pain approximately 48 hours ago. It is in the left side of his chest and he describes this as a pressure, aching sensation. He states that it does not radiate. He is short of breath with the chest pain. He denies any nausea or diaphoresis. The patient states that this morning the pain significantly worsened and was a 10 out of 10 pain and that is why he decided to come to the emergency department. He does have a known history of hypertension and hyperlipidemia. He reports never being told that he has any cardiac issues. He states that the chest pressure has resolved since being in the emergency department. He did have a malignantly elevated blood pressure in the 160s/100s upon arrival. He denies any fever, chills, nausea, vomiting, diarrhea, PND or orthopnea. He denies any lower extremity edema. [facility] Disclaimer: The information contained in this section may have been updated after the patient was seen, as this information can be updated by other users. Medical History (Updated 05/15/23 @ 12:56 by Lashanda Reyes APRN) Hyperlipidemia Hypertension Social History (Updated 05/15/23 @ 07:33 by Zeinab May RN) Smoking Status: Current every day smoker tobacco type: smokeless tobacco second hand exposure: No alcohol intake: never substance use type: marijuana counseling given: Yes counseling provided: provider counseling current occupational status: disabled Travel in the last 8 weeks: Inside the [place] household members: friend(s) housing: house current occupational exposures/hazards: No caffeine: No Review of Systems Review of Systems Review of systems:: pertinent systems reviewed and negative unless documented below Constitutional Constitutional: Reports system reviewed and no additional complaints, except as documented Eyes Eyes: Reports system reviewed and no additional complaints, except as documented ENT Ears, Nose, Mouth, and Throat: Reports system reviewed and no additional complaints, except as documented *Cardiovascular Cardiovascular: Reports system reviewed and no additional complaints, except as documented, Reports chest pain, Reports chest pain at rest, Reports chest pain with activity, Denies diaphoresis, Reports dyspnea and Denies radiating jaw, neck or arm pain *Respiratory Respiratory: Reports system reviewed and no additional complaints, except as documented, Denies cough and Reports dyspnea *Gastrointestinal Gastrointestinal: Reports system reviewed and no additional complaints, except as documented *Genitourinary Genitourinary: Reports system reviewed and no additional complaints, except as documented *Musculoskeletal Musculoskeletal: Reports system reviewed and no additional complaints, except as documented Integumentary/Breasts Skin/Breast: Reports system reviewed and no additional complaints, except as documented *Neurologic Neurologic: Reports system reviewed and no additional complaints, except as documented Psychiatric Psychiatric: Reports system reviewed and no additional complaints, except as documented Endocrine Endocrine: Reports system reviewed and no additional complaints, except as documented Hematologic/Lymphatic Hematologic/Lymphatic: Reports system reviewed and no additional complaints, except as documented Allergic/Immunologic Allergic/Immunologic: Reports system reviewed and no additional complaints, except as documented Exam Data for Last 24 hours Vital signs and Labs for Last 24 Hours: Temp Pulse Resp BP Pulse Ox O2 Del Method 97.9 F 70 18 161/102 H 97 Room Air 05/15/23 11:45 05/15/23
== END 2023-05-15 11:45 | disposition home or self-care (01) ==
PROVIDERS: Emergency Provider Emergency Medicine; PCP Internal Medicine Adolescent Medicine
DX: R07.9 Chest pain, unspecified (principal); I10 Essential (primary) hypertension; E78.2 Mixed hyperlipidemia; E03.9 Hypothyroidism, unspecified; F17.290 Nicotine dependence, other tobacco product, uncomplicated
CPT/HCPCS: 71045; 80053; 84484; 85025; 93005; 93306; 96374; 99285

== ENCOUNTER 2025-07-06 06:29 | Emergency (ER) | payer MEDICARE, MEDICAID, SELFPAY ==
--- OUTSIDE RECORDS SUMMARY | 2024-10-12 16:30 | XMS_ITS ---
Author Organization [facility] Address [address] [facility] [address] [place] [address] Care Team Providers Care Vitreo Retinal Surgeon Name Role Phone Nando Reddy Primary Care Provider Migration, Provider Unavailable Unavailable Allergies Allergen (clinical drug ingredient) Drug/Non Drug Allergy documented on EMR Reaction Allergy Type Onset Date Status MILK (uncoded) Unknown Allergy Activ e Yeast Yeast Unknown Allergy Active REASON FOR VISIT [facility] To [facility] Conversion Encounter Medications Medication SIG (Take, Route, Frequency, Duration) Notes Start Date End Date Status Vascepa 1 GM Capsule 2 cap(s) orally 2 t imes a day; Duration: 90 days Active Loratadine 10 MG Tablet 1 tab(s) orally once a day; Duration: 90 days 09/06/2022 Active Fluticasone Propionate 50 MCG/ACT Suspension 1 spray(s) in each nostril once a day; Duration: 30 days 09/06/2022 Active Levothyroxine Sodium 100 MCG Tablet 1 tab(s) orally once a day; Duration: 90 days Active Lisinopril 10 MG Tablet 1 tab(s) orally once a day; Duration: 90 days Active Fenofibrate 160 MG Tablet 1 tab(s) orall y once a day; Duration: 90 days Active Alendronate Sodium 70 MG Tablet 1 tab(s) orally once a week; Duration: 28 days Active tiZANidine HCl 4 MG Tablet 1 tab(s) oral ly three times a day as needed; Duration: 30 days Active Atorvastatin Calcium 20 MG Tablet 1 tab(s) orally once a day; Duration: 90 days Active risperiDONE 2 MG Tablet 1 tab(s) orally once a day; Duration: 90 days Active Escitalopram Oxalate 10 MG Tablet 1 tab(s) orally once a day; Duration: 90 days Active Famotidine 20 MG Tablet 1 tab(s) orally 2 times a day; Duration: 90 days Active Meclizine HCl 25 MG Tablet 1 tab(s) oral ly every 8 hours as needed for vertigo; Duration: 10 days 01/17/2024 Active Encounters Encounter Location Date Provider Diagnosis [facility] [address] [place], [place] [address] 10/12/2024 Provider Migration Hypothyroidism E03.9 ; Hypertension I10 ; Hypertriglyceridemia E78.1 ; Chronic pain disorder G89.4 ; Dizziness R42 ; Bipolar disease, chronic F31.9 and Osteoporosis M81.0 Assessments Encounter Date Diagnosis (ICD Code) Assessment Notes Treatment Notes Treatment Clinical Notes Section Notes 10/12/2024 Hypothyroidism (ICD- 10 - E03.9) 10/12/2024 Hypertension (ICD-10 - I10) 10/12/2024 Hypertriglyceridemia (ICD-10 - E78.1) 10/12/2024 Chronic pain disorde r (ICD-10 - G89.4) 10/12/2024 Dizziness (ICD-10 - R42) 10/12/2024 Bipolar disease, chr onic (ICD-10 - F31.9) 10/12/2024 Osteoporosis (ICD-10 - M81.0) Plan Of Treatment Medication Medication Name Sig Start Date Stop Date Notes Loratadine 10 MG Tablet 1 tab(s) orally once a day; Duration: 90 days 09/06/2022 Fluticasone Propionate 50 MCG/ACT Suspension 1 spray(s) in each nostril once a day; Duration: 30 days 09/06/2022 Levothyroxine Sodium 100 MCG Tablet 1 tab(s) orally once a day; Duration: 90 days Lisinopril 10 MG Tablet 1 tab(s) orally once a day; Duration: 90 days Fenofibrate 160 MG Tablet 1 tab(s) orall y once a day; Duration: 90 days Alendronate Sodium 70 MG Tablet 1 tab(s) orally once a week; Duration: 28 days tiZANidine HCl 4 MG Tablet 1 tab(s) oral ly three times a day as needed; Duration: 30 days Atorvastatin Calcium 20 MG Tablet 1 tab(s) orally once a day; Duration: 90 days risperiDONE 2 MG Tablet 1 tab(s) orally once a day; Duration: 90 days Progress Notes * Anjel BUITRAGODOB:1960 (64 yo M)Acc No.[id number]:10/12/2024 Patient: Anjel Viveros Provider: Janine estrella Migration :1960 A ge:64 Y S ex:Male Date:10/12/2024 Address:[address] [place] [address] [place], [id number] Pcp:Nando Reddy Subjective: * Chief Complaints: * M ultum To [facility] Conversion Encounter * Medications: T akingVascepa 1 GM Capsule 2 cap(s) orally 2 times a day Escitalopram Oxalate 10 MG Tablet 1 tab(s) orally once a day Famotidine 20 MG Tablet 1 tab(s) orally 2 times a day Meclizine HCl 25 MG Tablet 1 tab(s) orally every 8 hours as needed for vertigo Taking Vascepa 1 GM Capsule 2 cap(s) orally 2 times a day Taking Escitalopram Oxalate 10 MG Tablet 1 tab(s) orally once a day Taking Famotidine 20 MG Tablet 1 tab(s) orally 2 times a day Taking Meclizine HCl 25 MG Tablet 1 tab(s) orally every 8 hours as needed for vertigo * Allergies: M ILKYeast Assessment: * Assessment: 1. H ypertension - I10 2 . H ypertriglyceridemia - E78.1 3 . C hronic pain disorder - G89.4 4 . D izziness - R42 5 .?Bipolar disease, chronic - F31.9 6 . H ypothyroidism - E03.9 7 . O steoporosis - M81.0 Plan: * Treatment: 2. H ypertriglyceridemia Start Fenofibrate Tablet, 160 MG, 1 tab(s), orally, once a day, 90 days, 90 Tablet, Refills 1; S tart Atorvastatin Calcium Tablet, 20 MG, 1 tab(s), orally, once a day, 90 days, 90 Tablet, Refills 1. 3. C hronic pain disorder Refill tiZANidine HCl Tablet, 4 MG, 1 tab(s), orally, three times a day as needed, 30 days, 90, Refills 0. 4. D izziness Refill Loratadine Tablet, 10 MG, 1 tab(s), orally, once a day, 90 days, 90 Tablet, Refills 1; R efill Fluticasone Propionate Suspension, 50 MCG/ACT, 1 spray(s), in each nostril, once a day, 30 days, 1, Refills 1. 5. B ipolar disease, chronic Start risperiDONE Tablet, 2 MG, 1 tab(s), orally, once a day, 90 days, 90 Tablet, Refills 1. ? 6. H ypothyroidism Start Levothyroxine Sodium Tablet, 100 MCG, 1 tab(s), orally, once a day, 90 days, 90 Tablet, Refills 1. 7. O steoporosis Refill Alendronate Sodium Tablet, 70 MG, 1 tab(s), orally, once a week, 28 days, 4, Refills 5. * Electronic signature of Prov ider Migration on 07/06/2025 at 06:35 AM EST Sign off status: Pending * Provider: Janine estrella Migration Date: 0 10/12/2024 Generated for Abby jimenez/Stefania/Connie on: 1 09/06/2024 06:35 AM EST
--- OUTSIDE RECORDS SUMMARY | 2024-11-26 10:00 | XMS_ITS ---
Author Organization [facility] Address [address] [place] [address] Care Team Providers Care Data Management Manager Name Role Phone Nando Reddy Primary Care Provider REASON FOR VISIT 2 wk Encounters Encounter Location Date Provider Diagnosis [address] [address] 11/26/2024 Nando Reddy Plan Of Treatment No Information Progress Notes * Anjel BUITRAGODOB:1960 (64 yo M)Acc No.[id number]:11/26/2024 Progress Notes Patient: Anjel Viveros Provider: Av Reddy MD :1960 A ge:64 Y S ex:Male Date:11/26/2024 Address:[address] [place], [place] [id number] Subjective: * Chief Complaints: * 2 wk * Electronic signature of Jose Armando Reddy MD FAAP on 07/06/2025 at 06:36 AM EST Sign off status: Pending * Provider: Av Reddy MD Date: 0 11/26/2024 Generated for Zaci ng/Stefania/eTransmitting on: 1 09/06/2024 06:36 AM EST
--- OUTSIDE RECORDS SUMMARY | 2025-07-06 06:35 | XMS_ITS | Continuity of Care Document ---
Author Organization [place] - [employer] [facility], [place] [facility] [place] Address [address] [place] [address] Assessment Encounter Date Assessment Date Assessment LastModified by Organization Details LastModified Time 06/23/2025 06/23/2025 Anjel Langford presented for hypertension follow-up with poor medication compliance and new back pain. His blood pressure was 163/93 mmHg despite lisinopril increase from 10mg to 20mg daily. Medical history includes hypertension, vertigo, and hip arthritis. His hip pain improved with a completed steroid pack. He experienced acute back pain last night, getting stuck bent over. Plan includes continuing lisinopril 20mg daily with improved compliance, Tylenol Arthritis for pain, blood pressure check within one week, and maintaining his scheduled orthopedist appointment. [email or web address] Not available 06/23/2025 17:55:48 Plan of Treatment Reminders Order Date Submit Date Provider Last Modified By Organization Details Last Modified Time Details Appointments None record ed. Lab None record ed. Referral None record ed. Procedures None record ed. Surgeries None record ed. Imaging None record ed. Medication Orders None record ed. Patient TargetsNo targets recorded. Patient InstructionsNo instructions recorded. Reason for Referral None Reported. Results Created Date Observation Date Name Description Value Unit Range Abnormal Flag Note LastModifiedBy Organization Detail LastModifiedTime 06/02/2006/03/2025 CBC WITH DIFFE RENTI AL/PL ATELE T WBC 6.4 x10e3 /uL 3.4-10 .8 normal Not Available [facility] ([facility]) [address], [place], [address], 06/03/2025 07:08:29 06/02/2006/03/2025 CBC WITH DIFFE RENTI AL/PL ATELE T RBC 5.39 x10e6 /uL 4.14-5 .80 normal Not Available [facility] ([facility]) [address] [place], [address], 06/03/2025 07:08:29 06/02/2006/03/2025 CBC WITH DIFFE RENTI AL/PL ATELE T hemoglobin 16.8 g/dL 13.0-1 7.7 normal Not Available [facility] ([facility]) [address] [place], [address], 06/03/2025 07:08:29 06/02/2006/03/2025 CBC WITH DIFFE RENTI AL/PL ATELE T hematocrit 50.3 % 37.5-5 1.0 normal Not Available [facility] ([facility]) [address] [place], [address], 06/03/2025 07:08:29 06/02/2006/03/2025 CBC WITH DIFFE RENTI AL/PL ATELE T MCV 93 fL 79-97 normal Not Available [facility] ([facility]) [address] [place], [address], 06/03/2025 07:08:29 06/02/2006/03/2025 CBC WITH DIFFE RENTI AL/PL ATELE T MCH 31.2 pg 26.6-3 3.0 normal Not Available [facility] ([facility]) [address] [place], [address], 06/03/2025 07:08:29 06/02/2006/03/2025 CBC WITH DIFFE RENTI AL/PL ATELE T MCHC 33.4 g/dL 31.5-3 5.7 normal Not Available [facility] ([facility]) [address] [place], [address], 06/03/2025 07:08:29 06/02/2006/03/2025 CBC WITH DIFFE RENTI AL/PL ATELE T RDW 13.5 % 11.6-1 5.4 Not Available [facility] ([facility]) [address], [place], [address], 06/03/2025 07:08:29 06/02/2006/03/2025 CBC WITH DIFFE RENTI AL/PL ATELE T platelets 287 x10e3 /uL 150-45 0 normal Not Available [facility] ([facility]) [address], [place], [address], 06/03/2025 07:08:29 06/02/2006/03/2025 CBC WITH DIFFE RENTI AL/PL ATELE T neutrophils 59 % not estab. normal Not Available [facility] ([facility]) [address], [place], [address], 06/03/2025 07:08:29 06/02/2006/03/2025 CBC WITH DIFFE RENTI AL/PL ATELE T lymphs 28 % not estab. normal Not Available [facility] ([facility]) [address], [place], [address], 06/03/2025 07:08:29 06/02/2006/03/2025 CBC WITH DIFFE RENTI AL/PL ATELE T monocytes 7 % not estab. normal Not Available [facility] ([facility]) [address], [place], [address], 06/03/2025 07:08:29 06/02/2006/03/2025 CBC WITH DIFFE RENTI AL/PL ATELE T eos 4 % not estab. normal Not Available [facility] ([facility]) [address], [place], [address], 06/03/2025 07:08:29 06/02/2006/03/2025 CBC WITH DIFFE RENTI AL/PL ATELE T basos 2 % not estab. normal Not Available [facility] (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) [address] [place], [address], 06/03/2025 07:08:29 06/02/2006/03/2025 CBC WITH DIFFE RENTI AL/PL ATELE T neutrophils (absolute) 3.8 x10e3 /uL 1.4-7. 0 normal Not Available [facility] ([facility]) [address] [place], [address], 06/03/2025 07:08:29 06/02/2006/03/2025 CBC WITH DIFFE RENTI AL/PL ATELE T lymphs (absolute) 1.8 x10e3 /uL 0.7-3. 1 normal Not Available [facility] ([facility]) [address] [place], [address], 06/03/2025 07:08:29 06/02/2006/03/2025 CBC WITH DIFFE RENTI AL/PL ATELE T monocytes(ab solute) 0.4 x10e3 /uL 0.1-0. 9 normal Not Available [facility] ([facility]) [address] [place], [address], 06/03/2025 07:08:29 06/02/2006/03/2025 CBC WITH DIFFE RENTI AL/PL ATELE T eos (absolute) 0.2 x10e3 /uL 0.0-0. 4 normal Not Available [facility] ([facility]) [address] [place], [address], 06/03/2025 07:08:29 06/02/2006/03/2025 CBC WITH DIFFE RENTI AL/PL ATELE T baso (absolute) 0.1 x10e3 /uL 0.0-0. 2 normal Not Available [facility] ([facility]) [address], [place], [address], 06/03/2025 07:08:29 06/02/2006/03/2025 CBC WITH DIFFE RENTI AL/PL ATELE T immature granulocytes 0 % not estab. Not Available [facility] ([facility]) [address], [place], [address], 06/03/2025 07:08:29 06/02/2006/03/2025 CBC WITH DIFFE RENTI AL/PL ATELE T immature grans (abs) 0.0 x10e3 /uL 0.0-0. 1 Not Available [facility] ([facility]) [address], [place], [address], 06/03/2025 07:08:29 06/02/2006/03/2025 CBC WITH DIFFE RENTI AL/PL ATELE T NRBC FLAVORING MAKER Not Available [facility] (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) [address], [place], [address], 06/03/2025 07:08:29 06/02/2006/03/2025 COMP. METAB OLIC PANEL (14) glucose 85 mg/dL 70-99 normal Not Available [facility] ([facility]) [address] [place], [address], 06/03/2025 07:08:30 06/02/2006/03/2025 COMP. METAB OLIC PANEL (14) BUN 9 mg/dL 8-27 normal Not Available [facility] ([facility]) [address] [place], [address], 06/03/2025 07:08:30 06/02/20 25 06/03/2025 COMP. METAB OLIC PANEL (14) creatinine 0.92 mg/dL 0.76-1 .27 normal Not Available [facility] ([facility]) [address], [place], [address], 06/03/2025 07:08:30 06/02/2006/03/2025 COMP. METAB OLIC PANEL (14) eGFR 93 mL/mi n/1.7 3 >59 normal Not Available [facility] ([facility]) [address], [place], [address], 06/03/2025 07:08:30 06/02/20 25 06/03/2025 COMP. METAB OLIC PANEL (14) BUN/creatini ne ratio 10 10-24 normal Not Available [facility] ([facility]) [address], [place], [address], 06/03/2025 07:08:30 06/02/20 25 06/03/2025 COMP. METAB OLIC PANEL (14) sodium 141 mmol/ L 134-14 4 normal Not Available [facility] ([facility]) [address] [place], [address], 06/03/2025 07:08:30 06/02/20 25 06/03/2025 COMP. METAB OLIC PANEL (14) potassium 4.1 mmol/ L 3.5-5. 2 normal Not Available [facility] ([facility]) [address] [place], [address], 06/03/2025 07:08:30 06/02/20 25 06/03/2025 COMP. METAB OLIC PANEL (14) chloride 104 mmol/ L 96-106 normal Not Available [facility] ([facility]) [address], [place], [address], 06/03/2025 07:08:30 06/02/2006/03/2025 COMP. METAB OLIC PANEL (14) carbon dioxide, total 21 mmol/ L 20-29 normal Not Available [facility] ([facility]) [address] [place], [address], 06/03/2025 07:08:30 06/02/2006/03/2025 COMP. METAB OLIC PANEL (14) calcium 9.8 mg/dL 8.6-10 .2 normal Not Available [facility] ([facility]) [address] [place], [address], 06/03/2025 07:08:30 06/02/2006/03/2025 COMP. METAB OLIC PANEL (14) protein, total 7.5 g/dL 6.0-8. 5 normal Not Available [facility] ([facility]) [address] [place], [address], 06/03/2025 07:08:30 06/02/2006/03/2025 COMP. METAB OLIC PANEL (14) albumin 4.8 g/dL 3.9-4. 9 normal Not Available [facility] ([facility]) [address] [place], [address], 06/03/2025 07:08:30 06/02/2006/03/2025 COMP. METAB OLIC PANEL (14) globulin, total 2.7 g/dL 1.5-4. 5 Not Available [facility] ([facility]) [address] [place], [address], 06/03/2025 07:08:30 06/02/2006/03/2025 COMP. METAB OLIC PANEL (14) bilirubin, total 0.4 mg/dL 0.0-1. 2 normal Not Available [facility] ([facility]) [address] [place], [address], 06/03/2025 07:08:30 06/02/2006/03/2025 COMP. METAB OLIC PANEL (14) alkaline phosphatase 66 IU/L 47-123 normal Not Available [facility] ([facility]) [address] [place], [address], 06/03/2025 07:08:30 06/02/2006/03/2025 COMP. METAB OLIC PANEL (14) AST (SGOT) 28 IU/L 0-40 normal Not Available [facility] ([facility]) [address] [place], [address], 06/03/2025 07:08:30 06/02/2006/03/2025 COMP. METAB OLIC PANEL (14) ALT (SGPT) 48 IU/L 0-44 above high normal Not Available [facility] ([facility]) [address] [place], [address], 06/03/2025 07:08:30 06/02/2006/03/2025 LIPID PANEL cholesterol, total 225 mg/dL 100-19 9 above high normal Not Available [facility] ([facility]) [address] [place], [address], 06/03/2025 07:08:30 06/02/2006/03/2025 LIPID PANEL triglyceride s 316 mg/dL 0-149 above high normal Not Available [facility] ([facility]) [address] [place], [address], 06/03/2025 07:08:30 06/02/2006/03/2025 LIPID PANEL HDL cholesterol 34 mg/dL >39 below low normal Not Available [facility] ([facility]) [address] [place], [address], 06/03/2025 07:08:30 06/02/2006/03/2025 LIPID PANEL VLDL cholesterol linsey 57 mg/dL 5-40 above high normal Not Available [facility] ([facility]) [address] [place], [address], 06/03/2025 07:08:30 06/02/2006/03/2025 LIPID PANEL LDL chol calc ([facility]) 134 mg/dL 0-99 above high normal Not Available [facility] (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) [address] [place], [address], 06/03/2025 07:08:30 06/02/2006/03/2025 HEMOG LOBIN A1C hemoglobin A1C 5.3 % 4.8-5. 6 normal Predi abete s: 5.7 - 6.4 Diabe annie: >6.4 Glyce burton contr ol for adult s with diabe annie: <7.0 Not Available [facility] ([facility]) [address] [place], [address], 06/03/2025 07:08:30 06/02/2006/03/2025 TSH RFX ON ABNOR MAL TO FREE T4 TSH 2.640 uIU/m L 0.450- 4.500 normal Not Available [facility] ([facility]) [address] [place], [address], 06/03/2025 07:08:31 Result Notes None recorded. Problems Name Problem SNOMED Code Status Onset Date Resolution Date Notes Provider Name and Address Organization Details Recorded Time Body mass index 30+ - obesity 505791210 Active 2019 Problem Code: Z68.32; Problem Code Type: ICD-10; Not Available [facility] 22:00:40 Asthma 536996040 Active 2022 CHENTE SOLER-[address], [address] , [employer] 3 09:42:01 Dizziness 181823631 Active 2023 Kathleen Castillo APRN [address] [place] [address], [address] , [employer] 5 11:07:22 Osteoarth ritis of left hip joint 821311188557 108 Active 2024 Kathleen Castillo APRN [address] [place] [address], [address] , [employer] 5 11:06:39 Dysfuncti on of right eustachia n tube 574206974704 9101 Active 2024 Kathleen Castillo APRN [address] [place] [address], [address] , [employer] 5 11:07:06 Poor hypertens ion control 695092753 Active 2024 Kathleen Castillo APRN [address] [place] [address], [address] , [employer] 5 11:07:16 Mixed hyperlipi demia 668753418 Active 2024 Kathleen Castillo APRN [address] [place] [address], [address] , [employer] 5 11:07:37 Acute low back pain 644666770 Active 2024 Kathleen Castillo APRN [address] [place] [address], [address] , [employer] 17:57:17 Problem Notes None recorded. Procedures Surgical History Date Name Laterality Status Provider Name and Address Organization Details Recorded Time 01/24/20 Total hip arthroplasty completed Not Available [facility] 03/15/2022 22:56:18 01/24/20 thyroidectomy completed Not Available [facility] 2021 22:56:18 leg repair completed ZOILA VIVAR [employer] 10/11/2023 16:29:16 Imaging Results None recorded. Procedure Notes None recorded. Medical Equipment None Reported. Allergies Allergen ID Allergen Name Allergen Category Reaction Reaction Severity Criticality Documentation Date Start Date Code Code System Note Provider Name and Address Organization Details Recorded Time 66144 Milk (substanc e) food,medi cation Not available Not available Not available 06/02/2025 10483 002 SNOMED Not Available [employer] - prod 10:41:19 54748 Yeasts food,medi cation Not available Not available Not available 06/02/2025 43814 RxNorm Not Available [employer] - prod 10:41:19 Medications Name Sig Start Date Stop Date Status Note LastModified by Organization Details LastModified Time prednisone 10 mg tablet TAKE 1 TABLET BY MOUTH TWICE DAILY FOR 5 DAYS 05/31 completed Not Available Not Available Not Available atorvastati n 20 mg tablet Take 1 tablet every day by oral route for 30 days. active Not Available Not Available No t Available tizanidine 4 mg tablet 05/31 completed Not Available Not Available Not Available lisinopril 20 mg tablet Take 1 tablet every day by oral route, for BP. active Not Available Not Available No t Available alendronate 70 mg tablet Take 1 tablet every day by oral route for 28 days. active Not Available Not Available No t Available risperidone 2 mg tablet Take 1 tablet every day by oral route for 90 days. active Not Available Not Available No t Available levothyroxi ne 100 mcg tablet Take 1 tablet every day by oral route for 90 days. active Not Available Not Available No t Available famotidine 20 mg tablet active Not Available Not Available Not Available meclizine 25 mg tablet Take 1 tablet every 8 hours by oral route as needed. 2024 active Not Available Not Available Not Avai lable lisinopril 10 mg tablet Take 1 tablet every day by oral route for 90 days. 06/02 completed Not Available Not Available Not Available methylpredn isolone 4 mg tablets in a dose pack Take 1 dose pk by oral route. 06/23 completed Not Available Not Available Not Available albuterol sulfate HFA 90 mcg/actuati on aerosol inhaler Inhale 2 puffs every 4 hours by inhalatio n route. active Not Available Not Available No t Available fluticasone propionate 50 mcg/actuati on nasal spray,suspe nsion active Not Available Not Available Not Available amoxicillin 875 mg-potassiu m clavulanate 125 mg tablet Take 1 tablet every 12 hours by oral route for 7 days. 01/25 completed Not Available Not Available Not Available Bactrim DS 800 mg-160 mg tablet Take 1 tablet PO BID 05/31 completed Not Available Not Available Not Available escitalopra m 10 mg tablet active Not Available Not Available Not Available fenofibrate 160 mg tablet Take 1 tablet every day by oral route for 90 days. active Not Available Not Available No t Available Vascepa 1 gram capsule Take 1 capsule every day by oral route for 30 days. active Not Available Not Available No t Available Paxlovid 300 mg (150 mg x 2)-100 mg tablets in a dose pack Take 1 dose pk by oral route. 10/10 completed Not Available Not Available Not Available Vitals Date Recorded Body weight Body temperature Heart rate Oxygen saturation Systolic And Diastolic Systolic And Diastolic Provider Name and Address Organization Details Last Updated DateTime 5 77330.0 5 g 98.1 [degF] 80 /min 98 % 158/88 mm[Hg] 163/93 mm[Hg] JOÃO MOODY RADSON[employer]. 5 13:39:47 Social History Question Answer Notes LastModified by Organizat ion Details LastModified Time Tobacco Smoking Status Former Smoker ZOILA reis, [employer], [employer]. 10/11/2023 16:27:45 Do You Have An Advance Directive? No Information n ot available 10/11/2023 Is Your Home Air Conditioned? Yes Information not available 05/31/2023 Are You Blind Or Do You Have Difficulty Seeing? No Information n ot available 05/31/2023 What Is Your Level Of Caffeine Consumption? Heavy Information not available 05/31/2023 Are You A Caregiver? No Information not available 05/31/2023 In The 14 Days Before Symptom Onset, Have You Had Close Contact With A Laboratory-confirm ed COVID-19 While That Case Was Ill? No Information n ot available 05/31/2023 In The 14 Days Before Symptom Onset, Have You Had Close Contact With A Person Who Is Under Investigation For COVID-19 While That Person Was Ill? No Information not available 05/31/2023 Have You Been To An Area Known To Be High Risk For COVID-19? No Information not available 05/31/2023 Are You Deaf Or Do You Have Serious Difficulty Hearing? No Information not available 05/31/2023 Which Illicit Or Recreational Drugs Have You Used? Marijuana Information not available 05/31/2023 Have There Been Any Changes To Your Family Or Social Situation? No Information no t available 05/31/2023 When Did You Quit Smoking? 16+yearssince dorys [email or web address] Information not available 10/11/2023 Are There Any Guns Present In Your Home? Yes [email or web address] Information not available 10/11/2023 Do You Have A Medical Power Of Commercial Fishing Vessel Operator? No [email or web address] Information not available 10/11/2023 What Was The Date Of Your Most Recent Tobacco Screening? 06/23/2025 [email or web address] Information not available 06/23/2025 What Is Your Current Pack Years? 20-29packyear s [email or web address] Information not available 10/11/2023 What Is Your Relationship Status? Single Information not available 05/31/2023 Do You Use Your Seat Belt Or Car Seat Routinely? Yes Information not available 05/31/2023 Do You Have Smoke And Carbon Monoxide Detectors In Your Home? Yes Information not available 05/31/2023 Are You Passively Exposed To Smoke? Yes [email or web address] Information no t available 10/11/2023 Are There Any Smokers In Your House? Yes [email or web address] Information not available 10/11/2023 How Much Tobacco Do You Smoke? No [email or web address] Information not available 10/11/2023 Do You Use Sunscreen Routinely? No [email or web address] Information not available 10/11/2023 Have You Recently Traveled Abroad? No Information not available 05/31/2023 Do You Have Difficulty Walking Or Climbing Stairs? No Information not available 05/31/2023 Are You Currently In School? No [email or web address] Information not available 10/11/2023 Sex: Male Functional Status Question Answer Note LastModified by Organizat ion Details LastModified Time Do you use any illicit or recreational drugs? Yes Information not available 05/31/2023 Do you or have you ever used any other forms of tobacco or nicotine? Yes [email or web address] Information not available 10/11/2023 What is your level of alcohol consumption? Occasional [email or web address] Information not available 10/11/2023 Do you or have you ever used smokeless tobacco? Currently chews tobacco Information not available 10/11/2023 Are you currently employed? No [email or web address] Information not available 10/11/2023 Do you have transportation difficulties? No Information not available 05/31/2023 Are you able to walk independently without assistance or assistive devices? [email or web address] Information not available 05/31/2023 Do you have difficulty doing errands alone? No Information not available 05/31/2023 Are you able to care for yourself independently? Yes Information not available 05/31/2023 Do you have difficulty dressing, bathing, grooming, or toileting? No Information not available 05/31/2023 Do you or have you ever used e-cigarettes or vape? Never used electronic cigarettes [email or web address] Information not available 10/11/2023 Mental Status Question Answer Note LastModified by Organization D etails LastModified Time Do you have difficulty concentrating, remembering or making decisions? No Information no t available 05/31/2023 Family History Relationship Description Onset Age of this Age Resolved Age Notes LastModified by Organization Details LastModified Time Unspecified Relation Family history of alcoholism [email or web address] Not available 16:27:30 Medical History Condition Response Emergency room visit since last appointm ent. N High Cholesterol Y Hospitalizations N Immunizations Vaccine Type Date Status Note Provider Nam mikie and Address Organization Details Recorded Time Tdap 11/21/2021 completed ZOILA reis [facility] [employer], [employer] 10/11/2023 16:24:29 Past Encounters Encounter ID Performer Location Encounter Start Date Encounter Closed Date Diagnosis/Indication Diagnosis SNOMED-CT Code Diagnosis ICD10 Code Diagnosis IMO Codes Diagnosis Note [id number] Kathleen Castillo [address] [address] 06/02/2025 10:39:35 06/02/2025 11:13:55 Osteoarthritis of left hip joint 6033527190 89495 M16.12 9360272 Dysfunctio n of right eustachian tube 2009102411 572577 H69.91 98222849 Poor hyper tension control 732996256 I10 00084515 Increase lisinopril dose to 20 mg p.o. once daily and we will see him back in 3 weeks for blood pressure check follow-up. Dizziness 132582645 R42 31501 Diabetes m ellitus screening 600425972 Z13.1 87702 Mixed hyperlipidemia 267 878960 E78.2 29616 [id number] Kathleen Castillo [address] [address] 06/23/2025 13:28:51 06/23/2025 13:56:29 Poor hypertension control 332526508 I10 16350681 Continue Lisinopril 20 mg daily and RTC in 1 week BP check Noncomplia nce with medication regimen 892128202 Z91.148 623290 Consequenc es of medication noncomplia nce and uncontroll ed high blood pressure were in detail with patient. Osteoarthr itis of left hip joint 1501015719 96556 M16.12 8710188 Keep [facility] appt and may tylenol arthritis. Acute low back pain 2788 52896 M54.50 58735306 Health Concerns Section Related Observation LastModified by Organization Detai ls LastModified Time None Recorded Concern Status LastModified by Organization Details LastModified Time None Recorded Payers Encounter Date Sequence Insurance Name Policy Number Policy L[place] Covered Member ID L[place] Member ID Guarantor Name 06/23/2025 2 MEDICAID-[facility] CHOICES - FFS/TRADITION MARGY Langford [id number] Anjel Langford 06/23/2025 1 [facility] (MEDICARE REPLACEMENT/A DVANTAGE - HMO) SEEMA Langford [id number] Anjel Langford Notes Date Note Type Note Provider Name and Address Organization Details Recorded Time 06/23/2025 text/html ROS as noted in the HPI Chief ComplaintFollow-up for high blood pressure, back pain that occurred last nightHistory of Present [facility] for follow-up of hypertension. At his last visit, his blood pressure was 157/100 on lisinopril 10 mg daily, which was increased to 20 mg daily.Regarding his blood pressure management, the patient reports initial side effects when he first started the increased dose, describing feeling weird. He has baseline vertigo but denies worsening dizziness beyond his usual symptoms. He has been checking his blood pressure at home and reports that it varies, though he cannot recall specific numbers as it has been about a week since his last check. He admits to poor medication compliance, stating he gets busy and forgets to take his medication, sometimes taking it late at night instead of consistently.The patient was previously experiencing hip pain from arthritis and reports improvement following a steroid pack that was prescribed. However, he developed new onset back pain last night, describing an episode where his back went out and he was stuck bent over for like 5 minutes. He reports that his other medications are okay without specific concerns. Kathleen Castillo APRN [address] [facility], [place], [id number], [facility] [employer] 06/23/2025 17:57:41
--- OUTSIDE RECORDS SUMMARY | 2025-07-06 06:36 | XMS_ITS | Data Portability ---
Author Organization [email or web address] [facility] Address [address] [place] [address] Assessment Encounter Date Assessment Date Assessment LastModified by Organization Details LastModified Time 05/31/2023 05/31/2023 POC testing is positive for covid. Advised to treat symptomatically and return for any worsening symptoms. If she begins to have severe symptoms to include shortness of breath she would likely need to go the ER. Referred to the [facility] site for timing of masking and return to work. Paxlovid prescribed due to patient age and history of asthma. Refill of albuterol also provided. [email or web address] Not available 05/31/2023 10:04:03 10/11/2023 10/11/2023 Patient has righ t ear effusion and moderate throat erythema along with associated dizziness. Will treat as noted with medrol and Augmentin. Advised to take full course of antibiotics and return if symptoms are unresolved after treatment. Also providing meclizine for symptomatic relief. Not available 10/11/2023 16:44:33 06/02/2025 06/02/2025 Anjel Langford, a male patient, presents with persistent right ear tinnitus, nausea with epigastric pain, and left hip pain. His history includes hypertension, head injury (2022), colonic polyps, osteoarthritis, and right hip replacement. Examination revealed fluid behind both eardrums and elevated BP (157/100). He was prescribed steroids for ear effusion, meclizine for dizziness/nausea, referred to orthopedics for left hip evaluation, and lisinopril was increased to 20 mg daily for hypertension. Laboratory studies were ordered to investigate GI symptoms and increased urination/appetite . Not available 06/02/2025 16:25:56 06/23/2025 06/23/2025 Anjel Langford presented for hypertension [...] week, and maintaining his scheduled orthopedist appointment. Not available 06/23/2025 17:55:48 Plan of Treatment Reminders Order Date Submit Date Provider Last Modified By Organization Details Last Modified Time Details Appointments None recorded. Lab lipid panel, serum 2024 025 [facility] ([place]), [address] [place], [address], 07:08:30 CBC w/ auto diff 2024 025 [facility] ([place]), [address] [place], [address], 5 07:08:29 CMP, serum or plasma 2024 025 [facility] ([place]), [address] [place], [address], 5 07:08:30 TSH, ultra-sensi tive, serum 2024 025 [email or web address] [facility] ([place]), [address] [place], [address], 5 07:08:31 HbA1c (hemoglobin A1c), blood 2024 025 [email or web address] [facility] ([place]), [address] [place], [address], 5 07:08:31 rapid flu (A+B) [address], [facility] [address] [facility], [place], [address], 3 09:43:57 rapid SARS CoV 2 Ag, QL, IA, upper respiratory specimen [address], [facility]5 [facility], [place], [address], 3 09:43:58 Referral orthopedic surgeon referral - first avail, HE NEEDS AN APPT EARLY IN THE MONTH SO HE WILL HAVE GAS MONEY. 2024 025 [email or web address], [address], [address], [place], [address], 5 12:27:29 neurologist referral - first available appt 2023 024 [email or web address] Shailesh Marie MD, [address] [place] [address] Dr, [address], [place], [address], 4 16:21:55 Procedures None recorded. Surgeries None recorded. Imaging None recorded. Medication Orders meclizine 25 mg tablet 2024 025 ALYSHA [facility], [facility] [place], [address], 5 11:11:12 lisinopril 20 mg tablet 2024 025 M[facility], [address] [place], [address], 5 11:42:08 Medrol ([place]) 4 mg tablets in a dose pack 2024 025 ALYSHA [facility], [address] [place], [address], 5 13:43:14 Medrol ([place]) 4 mg tablets in a dose pack 2023 024 praful [facility], [address] [place], [address], 5 13:39:56 Augmentin 875 mg-125 mg tablet 2023 024 ALYSHA [facility], [address] [place], [address], 4 17:03:28 meclizine 25 mg tablet 2023 024 praful [facility], [address] [place], [address], 5 10:51:40 albuterol sulfate HFA 90 mcg/actuati on aerosol inhaler 2022 023 ALYSHA [facility], [address] [place], [address], 3 09:44:22 Paxlovid 300 mg (150 mg x 2)-100 mg tablets in a dose pack 2022 024 ALYSHA [facility], [address] [place], [address], 4 16:27:34 Patient TargetsNo targets recorded. Patient InstructionsNo instructions recorded. Reason for Referral Neurologist Referral for Con cussion with loss of consciousness first available appt Referring Physician: Kathleen Castillo [facility] Medicine, Encounter Date: 01/26/2024 Orthopedic Surgeon Referral for Osteoarthritis of left hip joint first avail, HE NEEDS AN APPT EARLY IN THE MONTH SO HE WILL HAVE GAS MONEY. Referring Physician: Kathleen Castillo [facility], Encounter Date: 06/02/2025 Results Created Date Observation Date Name Description Value Unit Range Abnormal Flag Note LastModifiedBy Organization Detail LastModifiedTime 05/31/20 23 05/31/2023 rapid SARS CoV 2 Ag, QL, IA, upper respi rator y speci men SARS CoV Ag positi ve Not Available [facility] [place] [address], [place], [address], 05/31/2023 09:23:47 05/31/2005/31/2023 rapid flu (A+B) Flu A negati ve Not Available [address], [address], 05/31/2023 09:23:45 05/31/20 23 05/31/2023 rapid flu (A+B) Flu B negati ve Not Available [address], [address], 05/31/2023 09:23:45 06/02/2006/03/2025 CBC WITH DIFFE RENTI AL/PL ATELE T WBC 6.4 x10e3 /uL 3.4-10 .8 normal Not Available [facility] ([facility]) [address] [place], [address], 06/03/2025 07:08:29 06/02/2006/03/2025 CBC WITH DIFFE RENTI AL/PL ATELE T RBC 5.39 x10e6 /uL 4.14-5 .80 normal Not Available [facility] ([facility]) [address] [place], [address], 06/03/2025 07:08:29 06/02/2006/03/2025 CBC WITH DIFFE RENTI AL/PL ATELE T hemoglobin 16.8 g/dL 13.0-1 7.7 normal Not Available [facility] ([facility]) [address] [place], [address], 06/03/2025 07:08:29 06/02/2006/03/2025 CBC WITH DIFFE RENTI AL/PL ATELE T hematocrit 50.3 % 37.5-5 1.0 normal Not Available [facility] ([facility]) [address] [place], [address], 06/03/2025 07:08:29 06/02/2006/03/2025 CBC WITH DIFFE RENTI AL/PL ATELE T MCV 93 fL 79-97 normal Not Available [facility] ([facility]) [address] [facility], [place], [address], 06/03/2025 07:08:29 06/02/2006/03/2025 CBC WITH DIFFE RENTI AL/PL ATELE T MCH 31.2 pg 26.6-3 3.0 normal Not Available [facility] ([facility]) [address] [facility], [place], [address], 06/03/2025 07:08:29 06/02/2006/03/2025 CBC WITH DIFFE RENTI AL/PL ATELE T MCHC 33.4 g/dL 31.5-3 5.7 normal Not Available [facility] ([facility]) [address] [facility], [place], [address], 06/03/2025 07:08:29 06/02/2006/03/2025 CBC WITH DIFFE RENTI AL/PL ATELE T RDW 13.5 % 11.6-1 5.4 Not Available [facility] ([facility]) [address] [place], [address], 06/03/2025 07:08:29 06/02/2006/03/2025 CBC WITH DIFFE RENTI AL/PL ATELE T platelets 287 x10e3 /uL 150-45 0 normal Not Available [facility] ([facility]) [address] [place], [address], 06/03/2025 07:08:29 06/02/2006/03/2025 CBC WITH DIFFE RENTI AL/PL ATELE T neutrophils 59 % not estab. normal Not Available [facility] ([facility]) [address] [place], [address], 06/03/2025 07:08:29 06/02/2006/03/2025 CBC WITH DIFFE RENTI AL/PL ATELE T lymphs 28 % not estab. normal Not Available [facility] ([facility]) [address] [facility], [place], [address], 06/03/2025 07:08:29 06/02/2006/03/2025 CBC WITH DIFFE RENTI AL/PL ATELE T monocytes 7 % not estab. normal Not Available [facility] ([facility]) [address] [facility], [place], [address], 06/03/2025 07:08:29 06/02/2006/03/2025 CBC WITH DIFFE RENTI AL/PL ATELE T eos 4 % not estab. normal Not Available [facility] ([facility]) [address] [facility], [place], [address], 06/03/2025 07:08:29 06/02/2006/03/2025 CBC WITH DIFFE RENTI AL/PL ATELE T basos 2 % not estab. normal Not Available [facility] ([facility]) [address] [facility], [place], [address], 06/03/2025 07:08:29 06/02/2006/03/2025 CBC WITH DIFFE RENTI AL/PL ATELE T immature cells CHANNEL WORKER Not Available [facility] ([facility]) [address] [facility], [place], [address], 06/03/2025 07:08:29 06/02/2006/03/2025 CBC WITH DIFFE RENTI AL/PL ATELE T neutrophils (absolute) 3.8 x10e3 /uL 1.4-7. 0 normal Not Available [facility] ([facility]) [address] [facility], [place], [address], 06/03/2025 07:08:29 06/02/2006/03/2025 CBC WITH DIFFE RENTI AL/PL ATELE T lymphs (absolute) 1.8 x10e3 /uL 0.7-3. 1 normal Not Available [facility] ([facility]) [address] [place], [address], 06/03/2025 07:08:29 06/02/2006/03/2025 CBC WITH DIFFE RENTI AL/PL ATELE T monocytes(ab solute) 0.4 x10e3 /uL 0.1-0. 9 normal Not Available [facility] ([facility]) [address] [place], [address], 06/03/2025 07:08:29 06/02/2006/03/2025 CBC WITH DIFFE RENTI AL/PL ATELE T eos (absolute) 0.2 x10e3 /uL 0.0-0. 4 normal Not Available [facility] ([facility]) [address] [place], [address], 06/03/2025 07:08:29 06/02/2006/03/2025 CBC WITH DIFFE RENTI AL/PL ATELE T baso (absolute) 0.1 x10e3 /uL 0.0-0. 2 normal Not Available [facility] ([facility]) [address] [place], [address], 06/03/2025 07:08:29 06/02/2006/03/2025 CBC WITH DIFFE RENTI AL/PL ATELE T immature granulocytes 0 % not estab. Not Available [facility] ([facility]) [address] [place], [address], 06/03/2025 07:08:29 06/02/2006/03/2025 CBC WITH DIFFE RENTI AL/PL ATELE T immature grans (abs) 0.0 x10e3 /uL 0.0-0. 1 Not Available [facility] ([facility]) [address] [place], [address], 06/03/2025 07:08:29 06/02/2006/03/2025 CBC WITH DIFFE RENTI AL/PL ATELE T NRBC CHANNEL WORKER Not Available [facility] ([facility]) [address], [place], [address], 06/03/2025 07:08:29 06/02/2006/03/2025 CBC WITH DIFFE RENTI AL/PL ATELE T hematology comments: CHANNEL WORKER Not Available [facility] ([facility]) [address], [place], [address], 06/03/2025 07:08:29 06/02/2006/03/2025 COMP. METAB OLIC PANEL (14) glucose 85 mg/dL 70-99 normal Not Available [facility] ([facility]) [address] [facility], [place], [address], 06/03/2025 07:08:30 06/02/2006/03/2025 COMP. METAB OLIC PANEL (14) BUN 9 mg/dL 8-27 normal Not Available [facility] ([facility]) [address] [facility], [place], [address], 06/03/2025 07:08:30 06/02/2006/03/2025 COMP. METAB OLIC PANEL (14) creatinine 0.92 mg/dL 0.76-1 .27 normal Not Available [facility] ([facility]) [address] [facility], [place], [address], 06/03/2025 07:08:30 06/02/2006/03/2025 COMP. METAB OLIC PANEL (14) eGFR 93 mL/mi n/1.7 3 >59 normal Not Available [facility] ([facility]) [address] [facility], [place], [address], 06/03/2025 07:08:30 06/02/2006/03/2025 COMP. METAB OLIC PANEL (14) BUN/creatini ne ratio 10 10-24 normal Not Available [facility] ([facility]) [address] [facility] [place], [address], 06/03/2025 07:08:30 06/02/2006/03/2025 COMP. METAB OLIC PANEL (14) sodium 141 mmol/ L 134-14 4 normal Not Available [facility] ([facility]) [address] [facility] [place], [address], 06/03/2025 07:08:30 06/02/2006/03/2025 COMP. METAB OLIC PANEL (14) potassium 4.1 mmol/ L 3.5-5. 2 normal Not Available [facility] ([facility]) [address] [facility] [place], [address], 06/03/2025 07:08:30 06/02/2006/03/2025 COMP. METAB OLIC PANEL (14) chloride 104 mmol/ L 96-106 normal Not Available [facility] ([facility]) [address] [facility] [place], [address], 06/03/2025 07:08:30 06/02/2006/03/2025 COMP. METAB OLIC PANEL (14) carbon dioxide, total 21 mmol/ L 20-29 normal Not Available [facility] ([facility]) [address] [place], [address], 06/03/2025 07:08:30 06/02/2006/03/2025 COMP. METAB OLIC PANEL (14) calcium 9.8 mg/dL 8.6-10 .2 normal Not Available [facility] ([facility]) [address] [place], [address], 06/03/2025 07:08:30 06/02/2006/03/2025 COMP. METAB OLIC PANEL (14) protein, total 7.5 g/dL 6.0-8. 5 normal Not Available [facility] ([facility]) [address] [facility] [place], [address], 06/03/2025 07:08:30 06/02/2006/03/2025 COMP. METAB OLIC PANEL (14) albumin 4.8 g/dL 3.9-4. 9 normal Not Available [facility] ([facility]) [address] [facility] [place], [address], 06/03/2025 07:08:30 06/02/2006/03/2025 COMP. METAB OLIC PANEL (14) globulin, total 2.7 g/dL 1.5-4. 5 Not Available [facility] ([facility]) [address] [facility] [place], [address], 06/03/2025 07:08:30 06/02/2006/03/2025 COMP. METAB OLIC PANEL (14) bilirubin, total 0.4 mg/dL 0.0-1. 2 normal Not Available [facility] ([facility]) [address] [facility] [place], [address], 06/03/2025 07:08:30 06/02/2006/03/2025 COMP. METAB OLIC PANEL (14) alkaline phosphatase 66 IU/L 47-123 normal Not Available [facility] ([facility]) [address] [facility] [place], [address], 06/03/2025 07:08:30 06/02/2006/03/2025 COMP. METAB OLIC PANEL (14) AST (SGOT) 28 IU/L 0-40 normal Not Available [facility] ([facility]) [address] [facility] [place], [address], 06/03/2025 07:08:30 06/02/20 25 06/03/2025 COMP. METAB OLIC PANEL (14) ALT (SGPT) 48 IU/L 0-44 above high normal Not Available [facility] ([facility]) [address] [place], [address], 06/03/2025 07:08:30 06/02/2006/03/2025 LIPID PANEL cholesterol, total 225 mg/dL 100-19 9 above high normal Not Available [facility] ([facility]) [address] [place], [address], 06/03/2025 07:08:30 06/02/2006/03/2025 LIPID PANEL triglyceride s 316 mg/dL 0-149 above high normal Not Available [facility] ([facility]) [address] [place], [address], 06/03/2025 07:08:30 06/02/2006/03/2025 LIPID PANEL HDL cholesterol 34 mg/dL >39 below low normal Not Available [facility] ([facility]) [address] [place], [address], 06/03/2025 07:08:30 06/02/2006/03/2025 LIPID PANEL VLDL cholesterol linsey 57 mg/dL 5-40 above high normal Not Available [facility] ([facility]) [address] [place], [address], 06/03/2025 07:08:30 06/02/2006/03/2025 LIPID PANEL LDL chol calc ([facility]) 134 mg/dL 0-99 above high normal Not Available [facility] ([facility]) [address] [place], [address], 06/03/2025 07:08:30 06/02/2006/03/2025 LIPID PANEL LDL calc comment: CHANNEL WORKER Not Available [facility] ([facility]) [address] [place], [address], 06/03/2025 07:08:30 06/02/2006/03/2025 HEMOG LOBIN A1C hemoglobin A1C 5.3 % 4.8-5. 6 normal Predi abete s: 5.7 - 6.4 Diabe annie: >6.4 Glyce burton contr ol for adult s with diabe annie: <7.0 Not Available [facility] ([facility]) [address] [facility], [place], [address], 06/03/2025 07:08:30 06/02/2006/03/2025 TSH RFX ON ABNOR MAL TO FREE T4 TSH 2.640 uIU/m L 0.450- 4.500 normal Not Available [facility] ([facility]) [address] [facility], [place], [address], 06/03/2025 07:08:31 Result Notes None recorded. Problems Name Problem SNOMED Code Status Onset Date Resolution Date Notes Provider Name and Address Organization Details Recorded Time Body mass index 30+ - obesity 340183324 Active 2019 Problem Code: Z68.32; Problem Code Type: ICD-10; Not Available [employer] 2 22:00:40 Asthma 906946091 Active 2022 IRINEO SOLERP-[address], [address] , [employer] 3 09:42:01 Dizziness 513859819 Active 2023 Kathleen Castillo APRN [address] [place] [address], [address] , [employer] 5 11:07:22 Osteoarth ritis of left hip joint 675056613642 108 Active 2024 Kathleen Castillo APRN [address] [place], [address] , [employer] 5 11:06:39 Dysfuncti on of right eustachia n tube 862724428472 9101 Active 2024 Kathleen Castillo APRN [address] [place], [address] , [employer] 5 11:07:06 Poor hypertens ion control 485831041 Active 2024 Kathleen Castillo, HISTORIOGRAPHER [address] [place], [address] , [email or web address] 5 11:07:16 Mixed hyperlipi demia 400322280 Active 2024 Kathleen Castillo, HISTORIOGRAPHER [address] [place], [address] , [email or web address] 5 11:07:37 Acute low back pain 431170304 Active 2024 Kathleen Castillo, HISTORIOGRAPHER [address] [place], [address] , [email or web address] 17:57:17 Problem Notes None recorded. Procedures Surgical History Date Name Laterality Status Provider Name and Address Organization Details Recorded Time 01/24/20 20 Total hip arthroplasty completed Not Available [facility] 03/15/2022 22:56:18 01/24/20 thyroidectomy completed Not Available [facility] 2021 22:56:18 leg repair completed ZOILA CB [email or web address] 10/11/2023 16:29:16 Imaging Results None recorded. Procedure Notes None recorded. Medical Equipment None Reported. Allergies Allergen ID Allergen Name Allergen Category Reaction Reaction Severity Criticality Documentation Date Start Date Code Code System Note Provider Name and Address Organization Details Recorded Time 87089 Milk (substanc e) food,medi cation Not available Not available Not available 06/02/2025 92213 002 SNOMED Not Available [facility] - External Data [employer] - prod 5 10:41:19 09464 Yeasts food,medi cation Not available Not available Not available 06/02/2025 60520 RxNorm Not Available [facility] - External Data [...] Not Available Not Available Vitals Date Recorded Systolic And Diastolic Provider Name and Address Organization Details Last Updated DateTime 10/11/2023 138/77 mm[Hg] CODI REAL, [employer]IVE [employer]IC THERAPIST-[employer] [address] [place], [address], [email or web address] 10/11/2023 16:45:34 Date Recorded Body height Body mass index (BMI) Body weight Body temperature Heart rate Oxygen saturation Systolic And Diastolic Provider Name and Address Organization Details Last Updated DateTime 4 170.18 cm 28.3 kg/m2 71491.2 2 g 98.3 [degF] 65 /min 94 % 155/92 mm[Hg] ZOILA VIVAR [email or web address] 4 16:30:57 Date Recorded Body height Body mass index (BMI) Body weight Body temperature Heart rate Oxygen saturation Systolic And Diastolic Systolic And Diastolic Systolic And Diastolic Provider Name and Address Organization Details Last Updated DateTime 4 170.18 cm 29.1 kg/m2 56436.4 6 g 98 [degF] 90 /min 97 % 152/95 mm[Hg] 179/90 mm[Hg] 163/84 mm[Hg] JOÃO Stroz FriedbergR [email or web address] 4 17:02:23 Date Recorded Body weight Body mass index (BMI) Body height Body temperature Heart rate Oxygen saturation Systolic And Diastolic Provider Name and Address Organization Details Last Updated DateTime 3 95315.9 5 g 27.8 kg/m2 170.18 cm 98.2 [degF] 69 /min 98 % 132/86 mm[Hg] Amy Gay [email or web address] 3 09:13:22 Date Recorded Body weight Body temperature Heart rate Oxygen saturation Systolic And Diastolic Systolic And Diastolic Systolic And Diastolic Systolic And Diastolic Provider Name and Address Organization Details Last Updated DateTime 5 10815.4 8 g 97.5 [degF] 74 /min 97 % 155/104 mm[Hg] 166/99 mm[Hg] 157/100 mm[Hg] 168/103 mm[Hg] JOÃO MYNEAR [employer] 5 11:10:46 Date Recorded Body weight Body temperature Heart rate Oxygen saturation Systolic And Diastolic Systolic And Diastolic Provider Name and Address Organization Details Last Updated DateTime 5 06002.0 5 g 98.1 [degF] 80 /min 98 % 158/88 mm[Hg] 163/93 mm[Hg] JOÃO MOSERRadha [employer]. 5 13:39:47 Social History Question Answer Notes LastModified by Organizat ion Details LastModified Time Tobacco Smoking Status Former Smoker ZOILA CB reis, [email or web address] 10/11/2023 16:27:45 Do You Have An Advance Directive? No [email or web address] Information n ot available 10/11/2023 Is Your [...] When Did You Quit Smoking? 16+yearssince [email or web address] [email or web address] Information not available 10/11/2023 Are There Any Guns Present In Your Home? Yes [email or web address] Information not available 10/11/2023 Do You Have A Medical Power Of Automotive Accessory Installer? No [email or web address] Information not available 10/11/2023 What Was The Date Of Your Most Recent Tobacco Screening? 06/23/2025 [email or web address] Information not available 06/23/2025 What Is Your Current Pack Years? 20-29packyemikala s Information not available 10/11/2023 What Is Your Relationship Status? Single Information not available 05/31/2023 Do You Use Your Seat Belt Or Car Seat Routinely? Yes Information not available 05/31/2023 Do You Have Smoke And Carbon Monoxide Detectors In Your Home? Yes Information not available 05/31/2023 Are You Passively Exposed To Smoke? Yes [email or web address] Information no t available 10/11/2023 Are There Any Smokers In Your House? Yes [email or web address] Information not available 10/11/2023 How Much Tobacco Do You Smoke? No Information not available 10/11/2023 Do You Use Sunscreen Routinely? No [email or web address] Information not available 10/11/2023 Have You Recently Traveled Abroad? No Information not available 05/31/2023 Do You Have Difficulty Walking Or Climbing Stairs? No Information not available 05/31/2023 Are You Currently In School? No [email or web address] Information not available 10/11/2023 Sex: Male Functional Status Question Answer Note LastModified by Organizat ion Details LastModified Time Do you use any illicit or recreational drugs? Yes Information not available 05/31/2023 Do you or have you ever used any other forms of tobacco or nicotine? Yes [email or web address] Information not available 10/11/2023 What is your level of alcohol consumption? Occasional [email or web address] Information not available 10/11/2023 Do you or have you ever used smokeless tobacco? Currently chews tobacco [email or web address] Information not available 10/11/2023 Are you currently employed? No [email or web address] Information not available 10/11/2023 Do you have [...] e-cigarettes or vape? Never used electronic cigarettes [email or web address] Information not available 10/11/2023 Mental Status Question Answer Note LastModified by Organization D etails LastModified Time Do you have difficulty concentrating, remembering or making decisions? No Information no t available 05/31/2023 Family History Relationship Description Onset Age of this Age Resolved Age Notes LastModified by Organization Details LastModified Time Unspecified Relation Family history of alcoholism [email or web address] Not available 16:27:30 Medical History Condition Response Emergency room visit since last appointm ent. N High Cholesterol Y Hospitalizations N Immunizations Vaccine Type Date Status Note Provider Nam e and Address Organization Details Recorded Time Tdap 11/21/2021 completed ZOILA reis [facility] [employer] [facility] 10/11/2023 16:24:29 Past Encounters Encounter ID Performer Location Encounter Start Date Encounter Closed Date Diagnosis/Indication Diagnosis SNOMED-CT Code Diagnosis ICD10 Code Diagnosis IMO Codes Diagnosis Note [id number] CODI ADD[address] [address] 05/31/2023 08:47:53 05/31/2023 10:14:27 Cough 17323726 R05.9 Asthma 324225927 J45.90 9 COVID-19 095644810 U07.1 [id number] CODI REAL [address] [address] 10/11/2023 16:09:24 10/11/2023 16:47:00 Sore throat 708751837 J02.9 Dizziness 021613459 R42 [id number] Kathleen Castillo APRN [address] [address] 01/26/2024 16:30:14 01/26/2024 17:21:21 Concussion with loss of consciousness [id number] S06.0X9S We will refer him to Neuro and attempt to obtain ER records. Dizziness [id number] R42 Memory impairment 586572 006 R41.3 Body mass index 25-29 - overweight [id number] Z68.29 [id number] Kathleen Castillo [place] [id number] 0 06/02/2025 10:39:35 06/02/2025 11:13:55 Osteoarthritis of left hip joint [id number] 63465 M16.12 0105054 Dysfunctio n of right eustachian tube [id number] 780222 H69.91 [id number] Poor hyper tension control [id number] I10 [id number] Increase lisinopril dose to 20 mg p.o. once daily and we will see him back in 3 weeks for blood pressure check follow-up. Dizziness [id number] R42 78589 Diabetes m ellitus screening 545985157 Z13.1 44308 Mixed hyperlipidemia 267 401138 E78.2 00723 [id number] Kathleen Castillo [place] [id number] 0 06/23/2025 13:28:51 06/23/2025 13:56:29 Poor hypertension control [id number] I10 91251579 Continue Lisinopril 20 mg daily and RTC in 1 week BP check Noncomplia nce with medication regimen 670691931 Z91.148 233449 Consequenc es of medication noncomplia nce and uncontroll ed high blood pressure were in detail with patient. Osteoarthr itis of left hip joint [id number] 11052 M16.12 [id number] Keep [facility] appt and may tylenol arthritis. Acute low back pain 2788 92044 M54.50 [id number] Health Concerns Section Related Observation LastModified by Organization Detai ls LastModified Time None Recorded Concern Status LastModified by Organization Details LastModified Time None Recorded Advance Directives Directive N: Payers Insurance Date Sequence Insurance Name Policy Number Policy L[place] Covered Member ID Latham Member ID Guarantor Name 06/23/2025 1 [employer] (MEDICARE REPLACEMENT/A DVANTAGE - PPO) Anjel Langford [id number] Anjel Langford 06/23/2025 MEDICAID-[facility] [employer] CHOICES - FFS/TRADITION AL Allertonlali Villalpandoe [id number] Anjel Langford 06/23/2025 [place] CHARLIE BIBA [employer] [facility] [place] R Langford [id number] Anjel Langford 06/23/2025 2 [place] [facility] CHOICES - FFS/TRADITION AL Anjel Langford [id number] Allertonlali Langford 06/23/2025 1 [facility] (MEDICARE REPLACEMENT/A DVANTAGE - HMO) [id number] [place] R Langford [id number]

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
--- OUTSIDE RECORDS SUMMARY | 2025-07-06 06:36 | XMS_ITS | Encounter Summary ---
Author Organization [facility] Address [address] [place] [address] Care Team Providers Care Covering Machine Operator Helper Name Role Phone Nando Reddy MD Primary Care Provider [phone] Encounter Details Date Type Department Care Team ([facility] st Contact Info) Description 06/18/2025 Telephone PFE SCHEDULING [address] [address] [place] [address] Social History Tobacco Use Types Packs/Day Years Used Date Smoking Tobacco: Former Cigarettes 1 20 Smokeless Tobacco: Current Chew Comments:Quit 2021. Alcohol Use Standard Drinks/Week Comments Not Currently 14 (1 standard drink = 0.6 oz pu re alcohol) Prior EtOH use. Sex and Gender Information Value Date Recorded Sex Assigned at Not on file Legal Sex Male 6:23 PM EDT Gender Identity Not on file Sexual Orientation Not on file documented as of this encounter Miscellaneous Notes * Telephone Encounter - Seble Del Cid - 06/19/2025 1:27 PM EST Mailed 06/19 * Telephone Encounter - Debby Neri - 06/18/2025 1:39 PM EST Patient Phone Message Reason for Call: Patient is requesting an appointment letter be sent to him via mail for the upcoming appointment: 07/15/25 at 9:40am with Dr. Henry. Note: Please do not reply to this message. Follow-up communication and further actions as a result of this message need to be communicated with the patient directly, if the patient is not active onMyChart. If the patient is active on MyChart, they will receive notification of the communication/outcome via MyChart. documented in this encounter Plan of Treatment Upcoming Encounters Date Type Department Care Team ([facility] st Contact Info) Description 07/15/2025 9:40 AM EST Office Visit Medical Office Building [facility] [address] [facility] [address], [address] [place] [address] Nando Henry MD [address] [facility] [address] [place] [address] documented as of this encounter Visit Diagnoses Not on filedocumented in this encounter Additional Health Concerns Assessment Noted Time A fall risk assessment has been complete d for the patient 01/27/2021 1:12 PM EDT documented as of this encounter Care Teams Covering Machine Operator Helper Relationship Specialty Start Date End Date Nando Reddy MD [facility] 2A [id number] PCP - General 11/20/20 documented as of this encounter
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
--- OUTSIDE RECORDS SUMMARY | 2025-07-06 06:37 | XMS_ITS | Continuity of Care Document ---
Author Organization [place] - [employer] [facility] Address [address] [place] [address] Assessment Encounter Date Assessment Date Assessment LastModified by Organization Details LastModified Time 06/02/2025 06/02/2025 Anjel Langford, a male patient, presents with persistent right ear tinnitus, nausea with epigastric pain, and left hip pain. His history includes hypertension, head injury (2022), colonic polyps, osteoarthritis , and right hip replacement. Examination revealed fluid behind both eardrums and elevated BP (157/100). He was prescribed steroids for ear effusion, meclizine for dizziness/naus ea, referred to orthopedics for left hip evaluation, and lisinopril was increased to 20 mg daily for hypertension. Laboratory studies were ordered to investigate GI symptoms and increased urination/appe tite. [email or web address] Not available 06/02/2025 16:25:56 Plan of Treatment Reminders Order Date Submit Date Provider Last Modified By Organization Details Last Modified Time Details Appointments None recorded. Lab lipid panel, serum 2024 025 Asseta [facility] ([place]), [address] [facility], [place], [address], 07:08:30 CBC w/ auto diff 2024 025 Asseta [facility] ([place]), [address] [place], [address], 07:08:29 CMP, serum or plasma 2024 025 TERESSA [facility] ([place]), [address] [facility], [place], [address], 07:08:30 TSH, ultra-sensi tive, serum 2024 TERESSA [facility] ([place]), [address] [facility], [place], [address], 07:08:31 HbA1c (hemoglobin A1c), blood 2024 TERESSA [facility] ([place]), [address] [place], [address], 07:08:31 Referral orthopedic surgeon referral - first avail, HE NEEDS AN APPT EARLY IN THE MONTH SO HE WILL HAVE GAS MONEY. [address] [facility], [address], [address], [place], [address], 12:27:29 Procedures None recorded. Surgeries None recorded. Imaging None recorded. Medication Orders meclizine 25 mg tablet 2024 [facility], [address] [place] [address], [address], 11:11:12 lisinopril 20 mg tablet 2024 [facility], [facility] [place], [address], 11:42:08 Medrol ([place]) 4 mg tablets in a dose pack 2024 ELKHART [facility] [employer] [facility], [address] [place] [address], [address], 13:43:14 Patient TargetsNo targets recorded. Patient InstructionsNo instructions recorded. Reason for Referral Orthopedic Surgeon Referral for Osteoarthritis of left hip joint first avail, HE NEEDS AN APPT EARLY IN THE MONTH SO HE WILL HAVE GAS MONEY. Referring Physician: Kathleen Castillo, Family Medicine, Encounter Date: 06/02/2025 Results Created Date Observation Date Name Description Value Unit Range Abnormal Flag Note LastModifiedBy Organization Detail LastModifiedTime 06/02/2006/03/2025 CBC WITH DIFFE RENTI AL/PL ATELE T WBC 6.4 x10e3 /uL 3.4-10 .8 normal Not Available [facility] ([facility]) [address] [place], [address], 06/03/2025 07:08:29 06/02/2006/03/2025 CBC WITH DIFFE RENTI AL/PL ATELE T RBC 5.39 x10e6 /uL 4.14-5 .80 normal Not Available [facility] ([facility]) [address] [place], [address], 06/03/2025 07:08:29 06/02/2006/03/2025 CBC WITH DIFFE RENTI AL/PL ATELE T hemoglobin 16.8 g/dL 13.0-1 7.7 normal Not Available [facility] ([facility]) [address] [place], [address], 06/03/2025 07:08:29 06/02/2006/03/2025 CBC WITH DIFFE RENTI AL/PL ATELE T hematocrit 50.3 % 37.5-5 1.0 normal Not Available [facility] ([facility]) [address] [place], [address], 06/03/2025 07:08:29 06/02/2006/03/2025 CBC WITH DIFFE RENTI AL/PL ATELE T MCV 93 fL 79-97 normal Not Available [facility] ([facility]) [address] [place], [address], 06/03/2025 07:08:29 06/02/2006/03/2025 CBC WITH DIFFE RENTI AL/PL ATELE T MCH 31.2 pg 26.6-3 3.0 normal Not Available [facility] ([facility]) [address] [facility], [place], [address], 06/03/2025 07:08:29 06/02/2006/03/2025 CBC WITH DIFFE RENTI AL/PL ATELE T MCHC 33.4 g/dL 31.5-3 5.7 normal Not Available [facility] ([facility]) [address] [facility], [place], [address], 06/03/2025 07:08:29 06/02/2006/03/2025 CBC WITH DIFFE RENTI AL/PL ATELE T RDW 13.5 % 11.6-1 5.4 Not Available [facility] ([facility]) [address] [facility], [place], [address], 06/03/2025 07:08:29 06/02/2006/03/2025 CBC WITH DIFFE RENTI AL/PL ATELE T platelets 287 x10e3 /uL 150-45 0 normal Not Available [facility] ([facility]) [address] [facility], [place], [address], 06/03/2025 07:08:29 06/02/2006/03/2025 CBC WITH DIFFE RENTI AL/PL ATELE T neutrophils 59 % not estab. normal Not Available [facility] ([facility]) [address] [facility], [place], [address], 06/03/2025 07:08:29 06/02/2006/03/2025 CBC WITH DIFFE RENTI AL/PL ATELE T lymphs 28 % not estab. normal Not Available [facility] ([facility]) [address] [facility], [place], [address], 06/03/2025 07:08:29 06/02/2006/03/2025 CBC WITH DIFFE RENTI AL/PL ATELE T monocytes 7 % not estab. normal Not Available [facility] ([facility]) [address] [place], [address], 06/03/2025 07:08:29 06/02/2006/03/2025 CBC WITH DIFFE RENTI AL/PL ATELE T eos 4 % not estab. normal Not Available [facility] ([facility]) [address] [place], [address], 06/03/2025 07:08:29 06/02/2006/03/2025 CBC WITH DIFFE RENTI AL/PL ATELE T basos 2 % not estab. 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 0 normal Not Available [facility] ([facility]) [address] [place], [address], 06/03/2025 07:08:29 06/02/2006/03/2025 CBC WITH DIFFE RENTI AL/PL ATELE T lymphs (absolute) 1.8 x10e3 /uL 0.7-3. 1 normal Not Available [facility] ([facility]) [address] [place], [address], 06/03/2025 07:08:29 06/02/2006/03/2025 CBC WITH DIFFE RENTI AL/PL ATELE T monocytes(ab solute) 0.4 x10e3 /uL 0.1-0. 9 normal Not Available [facility] ([facility]) [address] [facility], [place], [address], 06/03/2025 07:08:29 06/02/2006/03/2025 CBC WITH DIFFE RENTI AL/PL ATELE T eos (absolute) 0.2 x10e3 /uL 0.0-0. 4 normal Not Available [facility] ([facility]) [address] [facility], [place], [address], 06/03/2025 07:08:29 06/02/2006/03/2025 CBC WITH DIFFE RENTI AL/PL ATELE T baso (absolute) 0.1 x10e3 /uL 0.0-0. 2 normal Not Available [facility] ([facility]) [address] [facility], [place], [address], 06/03/2025 07:08:29 06/02/2006/03/2025 CBC WITH DIFFE RENTI AL/PL ATELE T immature granulocytes 0 % not estab. Not Available [facility] ([facility]) [address] [facility], [place], [address], 06/03/2025 07:08:29 06/02/2006/03/2025 CBC WITH DIFFE RENTI AL/PL ATELE T immature grans (abs) 0.0 x10e3 /uL 0.0-0. 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 METAB OLIC PANEL (14) glucose 85 mg/dL 70-99 normal Not Available [facility] ([facility]) [address] [facility] [place], [address], 06/03/2025 07:08:30 06/02/2006/03/2025 COMP. METAB OLIC PANEL (14) BUN 9 mg/dL 8-27 normal Not Available [facility] ([facility]) [address] [facility] [place], [address], 06/03/2025 07:08:30 06/02/2006/03/2025 COMP. METAB OLIC PANEL (14) creatinine 0.92 mg/dL 0.76-1 .27 normal Not Available [facility] ([facility]) [address] [place], [address], 06/03/2025 07:08:30 06/02/2006/03/2025 COMP. METAB OLIC PANEL (14) eGFR 93 mL/mi n/1.7 3 >59 normal Not Available [facility] ([facility]) [address] [place], [address], 06/03/2025 07:08:30 06/02/2006/03/2025 COMP. METAB OLIC PANEL (14) BUN/creatini ne ratio 10 10-24 normal Not Available [facility] ([facility]) [address] [facility] [place], [address], 06/03/2025 07:08:30 06/02/2006/03/2025 COMP. METAB OLIC PANEL (14) sodium 141 mmol/ L 134-14 4 normal Not Available [facility] ([facility]) [address] [place], [address], 06/03/2025 07:08:30 06/02/20 25 06/03/2025 COMP. METAB OLIC PANEL (14) potassium 4.1 mmol/ L 3.5-5. 2 normal Not Available [facility] ([facility]) [address] [facility] [place], [address], 06/03/2025 07:08:30 06/02/2006/03/2025 COMP. METAB OLIC PANEL (14) chloride 104 mmol/ L 96-106 normal Not Available [facility] ([facility]) [address] [facility] [place], [address], 06/03/2025 07:08:30 06/02/2006/03/2025 COMP. METAB OLIC PANEL (14) carbon dioxide, total 21 mmol/ L 20-29 normal Not Available [facility] ([facility]) [address] [facility] [place], [address], 06/03/2025 07:08:30 06/02/2006/03/2025 COMP. METAB OLIC PANEL (14) calcium 9.8 mg/dL 8.6-10 .2 normal Not Available [facility] ([facility]) [address] [facility] [place], [address], 06/03/2025 07:08:30 06/02/2006/03/2025 COMP. METAB OLIC PANEL (14) protein, total 7.5 g/dL 6.0-8. 5 normal Not Available [facility] ([facility]) [address] [facility] [place], [address], 06/03/2025 07:08:30 06/02/2006/03/2025 COMP. METAB OLIC PANEL (14) albumin 4.8 g/dL 3.9-4. 9 normal Not Available [facility] ([facility]) [address] [facility] [place], [address], 06/03/2025 07:08:30 06/02/2006/03/2025 COMP. METAB OLIC PANEL (14) globulin, total 2.7 g/dL 1.5-4. 5 Not Available [facility] ([facility]) [address] [place], [address], 06/03/2025 07:08:30 06/02/20 25 06/03/2025 COMP. METAB OLIC PANEL (14) bilirubin, total 0.4 mg/dL 0.0-1. 2 normal Not Available [facility] ([facility]) [address] [place], [address], 06/03/2025 07:08:30 06/02/2006/03/2025 COMP. METAB OLIC PANEL (14) alkaline phosphatase 66 IU/L 47-123 normal Not Available [facility] ([facility]) [address] [place], [address], 06/03/2025 07:08:30 06/02/2006/03/2025 COMP. METAB OLIC PANEL (14) AST (SGOT) 28 IU/L 0-40 normal Not Available [facility] ([facility]) [address] [place], [address], 06/03/2025 07:08:30 06/02/20 25 06/03/2025 COMP. METAB OLIC PANEL (14) ALT (SGPT) 48 IU/L 0-44 above high normal Not Available [facility] ([facility]) [address] [place], [address], 06/03/2025 07:08:30 06/02/2006/03/2025 LIPID PANEL cholesterol, total 225 mg/dL 100-19 9 above high normal Not Available [facility] ([facility]) [address] [place], [address], 06/03/2025 07:08:30 06/02/20 25 06/03/2025 LIPID PANEL triglyceride s 316 mg/dL 0-149 above high normal Not Available [facility] ([facility]) [address] [place], [address], 06/03/2025 07:08:30 06/02/2006/03/2025 LIPID PANEL HDL cholesterol 34 mg/dL >39 below low normal Not Available [facility] ([facility]) [address] [place], [address], 06/03/2025 07:08:30 06/02/2006/03/2025 LIPID PANEL VLDL cholesterol linsey 57 mg/dL 5-40 above high normal Not Available [facility] ([facility]) [address] [place], [address], 06/03/2025 07:08:30 06/02/2006/03/2025 LIPID PANEL LDL chol calc ([facility]) 134 mg/dL 0-99 above high normal Not Available [facility] ([facility]) [address] [place], [address], 06/03/2025 07:08:30 06/02/2006/03/2025 LIPID PANEL LDL calc comment: 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 6 normal Predi abete s: 5.7 - 6.4 Diabe annie: >6.4 Glyce burton contr ol for adult s with diabe annie: <7.0 Not Available [facility] ([facility]) [address] [place], [address], 06/03/2025 07:08:30 06/02/2006/03/2025 TSH RFX ON ABNOR MAL TO FREE T4 TSH 2.640 uIU/m L 0.450- 4.500 normal Not Available [facility] ([facility]) [address] [facility], [place], [address], 06/03/2025 07:08:31 Result Notes None recorded. Problems Name Problem SNOMED Code Status Onset Date Resolution Date Notes Provider Name and Address Organization Details Recorded Time Body mass index 30+ - obesity 868757896 Active 2019 Problem Code: Z68.32; Problem Code Type: ICD-10; Not Available [facility] 22:00:40 Asthma 886357172 Active 2022 CODI REAL [address], [address] , [employer] 3 09:42:01 Dizziness 660712012 Active 2023 Kathleen Castillo APRN [address] [place] [address], [address] , [employer] 11:07:22 Osteoarth ritis of left hip joint 894997722107 108 Active 2024 Kathleen Castillo APRN [address] [place] [address], [address] , [employer] 5 11:06:39 Dysfuncti on of right eustachia n tube 039462898904 9101 Active 2024 Kathleen Castillo APRN [address] [place] [address], [address] , [employer] 5 11:07:06 Poor hypertens ion control 360295082 Active 2024 Kathleen Castillo APRN [address] [place] [address], [address] , [employer] 5 11:07:16 Mixed hyperlipi demia 065441140 Active 2024 Kathleen Castillo APRN [address] [place] [address], [address] , [employer] 5 11:07:37 Acute low back pain 572705312 Active 2024 FREDY Pastor [facility], [place], [address] , [employer] 17:57:17 Problem Notes None recorded. Procedures Surgical History Date Name Laterality Status Provider Name and Address Organization Details Recorded Time 01/24/20 Total hip arthroplasty completed Not Available [facility] 03/15/2022 22:56:18 01/24/20 thyroidectomy completed Not Available [facility] 2021 22:56:18 leg repair completed ZOILADEXTER VIVAR [employer] 10/11/2023 16:29:16 Imaging Results None recorded. Procedure Notes None recorded. Medical Equipment None Reported. Allergies Allergen ID Allergen Name Allergen Category Reaction Reaction Severity Criticality Documentation Date Start Date Code Code System Note Provider Name and Address Organization Details Recorded Time 27460 Milk (substanc e) food,medi cation Not available Not available Not available 06/02/2025 67336 002 SNOMED Not Available [employer] - prod 10:41:19 11098 Yeasts food,medi cation Not available Not available Not available 06/02/2025 47043 RxNorm Not Available [employer] - [employer] 10:41:19 Medications Name Sig Start Date Stop [...] Address Organization Details Last Updated DateTime 5 36351.4 8 g 97.5 [degF] 74 /min 97 % 155/104 mm[Hg] 166/99 mm[Hg] 157/100 mm[Hg] 168/103 mm[Hg] JOÃO MOODY [employer] 5 11:10:46 Social History Question Answer Notes LastModified by Organizat ion Details LastModified Time Tobacco Smoking Status Former Smoker ZOILA reis [employer] 10/11/2023 16:27:45 Do You Have An Advance Directive? No [email or web address] Information n ot available 10/11/2023 Is Your [...] 05/31/2023 When Did You Quit Smoking? 16+yearssince lastbina [email or web address] Information not available 10/11/2023 Are There Any Guns Present In Your Home? Yes [email or web address] Information not available 10/11/2023 Do You Have A Medical Power Of Sustainability Executive Director? No [email or web address] Information not available 10/11/2023 What Was The Date Of Your Most Recent Tobacco Screening? 06/23/2025 [email or web address] Information not available 06/23/2025 What Is Your Current Pack Years? 20-29packyear s [email or web address] Information not available 10/11/2023 What Is Your Relationship Status? Single Information not available 05/31/2023 Do You Use Your Seat Belt Or Car Seat Routinely? Yes Information not available 05/31/2023 Do You Have Smoke And Carbon Monoxide Detectors In Your Home? Yes Information not available 05/31/2023 Are You Passively Exposed To Smoke? Yes Information no t available 10/11/2023 Are There Any Smokers In Your House? Yes [email or web address] Information not available 10/11/2023 How Much Tobacco Do You Smoke? No Information not available 10/11/2023 Do You Use Sunscreen Routinely? No [email or web address] Information not available 10/11/2023 Have You Recently Traveled Abroad? No Information not available 05/31/2023 Do You Have Difficulty Walking Or Climbing Stairs? No Information not available 05/31/2023 Are You Currently In School? No [email or web address] Information not available 10/11/2023 Sex: Male Functional Status Question Answer Note LastModified by Organizat ion Details LastModified Time Do you use any illicit or recreational drugs? Yes Information not available 05/31/2023 Do you or have you ever used any other forms of tobacco or nicotine? Yes [email or web address] Information not available 10/11/2023 What is your level of alcohol consumption? Occasional [email or web address] Information not available 10/11/2023 Do you or have you ever used smokeless tobacco? Currently chews tobacco [email or web address] Information not available 10/11/2023 Are you currently employed? No [email or web address] Information not available 10/11/2023 Do you have [...] e-cigarettes or vape? Never used electronic cigarettes [email or web address] Information not available 10/11/2023 Mental Status Question Answer Note LastModified by Organization D etails LastModified Time Do you have difficulty concentrating, remembering or making decisions? No Information no t available 05/31/2023 Family History Relationship Description Onset Age of this Age Resolved Age Notes LastModified by Organization Details LastModified Time Unspecified Relation Family history of alcoholism [email or web address] Not available 16:27:30 Medical History Condition Response High Cholesterol Y Hospitalizations N Emergency room visit since last appointm ent. N Immunizations Vaccine Type Date Status Note Provider Nam e and Address Organization Details Recorded Time Tdap 11/21/2021 completed ZOILA reis [place] - [place] [employer] [employer] 10/11/2023 16:24:29 Past Encounters Encounter ID Performer Location Encounter Start Date Encounter Closed Date Diagnosis/Indication Diagnosis SNOMED-CT Code Diagnosis ICD10 Code Diagnosis IMO Codes Diagnosis Note [id number] Kathleen Castillo APRN [address] [address] 06/02/2025 10:39:35 06/02/2025 11:13:55 Osteoarthritis of left hip joint 0478378322 07571 M16.12 4259712 Dysfunctio n of right eustachian tube 2621655445 683718 H69.91 58588593 Poor hyper tension control 445145898 I10 88168986 Increase lisinopril dose to 20 mg p.o. once daily and we will see him back in 3 weeks for blood pressure check follow-up. Dizziness 386513657 R42 56974 Diabetes m ellitus screening 305717692 Z13.1 11214 Mixed hyperlipidemia 267 747038 E78.2 11484 Health Concerns Section Related Observation LastModified by Organization Detai ls LastModified Time None Recorded Concern Status LastModified by Organization Details LastModified Time None Recorded Payers Encounter Date Sequence Insurance Name Policy Number Policy Latham Covered Member ID Latham Member ID Guarantor Name 06/02/2025 2 MEDICAID-[facility] CHOICES - FFS/TRADITION MARGY Langford [id number] Anjel Langford 06/02/2025 1 [facility] (MEDICARE REPLACEMENT/A DVANTAGE - HMO) SEEMA Langford [id number] Anjel Langford Notes Date Note Type Note Provider Name and Address Organization Details Recorded Time 06/02/2025 text/html ROS as noted in the HPI [...] BP is grossly elevated today. Kathleen Castillo, FREDY [address] [facility], [place], [address], [facility] [employer] 06/02/2025 16:29:17
[2025-07-06 06:38] VITALS: BP 170/113; PULSE 74; RESP 20; TEMP 36.7; O2SAT 99; BMI 30.4
--- NOTE | 2025-07-06 06:47 | XR_ITS ---
PROCEDURE INFORMATION: Exam: XR Chest Exam date and time: 07/06/2025 6:48 AM Age: 64 years old Clinical indication: Cough and shortness of breath; Additional info: Productive cough TECHNIQUE: Imaging protocol: Radiologic exam of the chest. Views: 2 views. COMPARISON: CR XR CHEST PORTABLE 05/15/2023 7:56 AM FINDINGS: Lungs: Unremarkable. No consolidation. Pleural spaces: Unremarkable. No pleural effusion. No pneumothorax. Heart/Mediastinum: Unremarkable. No cardiomegaly. Bones/joints: Mild multilevel chronic degenerative changes throughout the thoracic spine. IMPRESSION: No acute findings.
[2025-07-06] MEDS: KETOROLAC 15MG/ML VIAL 15 MG IM (06:56)
[2025-07-06] MEDS: LIDOCAINE 5% TRANSDERMAL PATCH 1 EACH TD (06:56)
--- NOTE | 2025-07-06 06:57 | [facility].EDGENADL ---
Discharge Plan Disposition Patient Disposition: Home, Self-Care Prescriptions Prescriptions: New lidocaine [Aspercreme (lidocaine)] 4 % adhesive patch,medicated 1 patch topical DAILY PRN (Reason: pain) Qty: 10 0RF methocarbamol 500 mg tablet 1,000 mg PO Q8H PRN (Reason: muscle pain and spasm) Qty: 30 0RF Rx Instructions: Do not combine with other muscle relaxants [id number] [Bromfed DM] 2-30-10 mg/5 mL syrup 5 ml PO Q6H PRN (Reason: cold symptoms) Qty: 118 0RF No Action diclofenac sodium [Voltaren Arthritis Pain] 1 % gel 2 g TOPICAL QID Qty: 100 2RF Rx Instructions: apply to single elbow, wrist or hand; for hand includes palm/fingers/back of hand levothyroxine 100 MCG tablet 100 mcg PO DAILY fenofibrate 160 MG tablet 160 mg PO DAILY Patient Comments: TAKE 1 TABLET BY MOUTH EVERY DAY famotidine 20 MG tablet 20 mg PO BID docusate sodium 100 MG capsule 100 mg PO BIDP PRN (Reason: Constipation) 0RF ondansetron 4 MG tablet,disintegrating 4 mg PO TIDP PRN (Reason: Nausea) 3 Days Qty: 9 0RF prednisone 10 mg tablet 10 mg PO BID 5 Days Qty: 10 0RF amoxicillin-pot clavulanate 875-125 mg Tablet 1 tab PO Q12H Qty: 20 0RF guaifenesin [Mucinex] 600 mg tablet extended release 12hr 600 mg PO BID PRN (Reason: cough/congestion) Qty: 20 0RF atorvastatin 20 MG tablet 20 mg PO HS risperidone 2 MG tablet 2 mg PO HS fluticasone propionate 9.9 ML spray,suspension 2 spray NS DAILY lisinopril 10 MG tablet 10 mg PO DAILY ergocalciferol (vitamin D2) 50,000 UNIT capsule 50,000 unit PO WEEKLY tizanidine 4 MG tablet 4 mg PO TIDP PRN (Reason: MUSCLE SPASMS) alendronate 70 MG tablet 70 mg PO WEEKLY icosapent ethyl 1 GM capsule 2 gm PO BID famotidine 20 MG tablet 20 mg PO DAILY Referrals Follow up/Referrals: Nando Reddy MD [Primary Care Provider, Internal Medicine] - See instructions Activity Restrictions/Add. Instructions Additional Instructions/Restrictions: At this time it was felt you are safe to be discharged home. If new or worsening symptoms please do not hesitate to return the emergency department. Please take your medications as prescribed and if your symptoms persist follow-up with your doctor this coming week mid-to-late week. Clinical Impressions Clinical Impression: Acute exacerbation of chronic low back pain, Cough Instructions Patient Instructions: Cough Print Language Print Language: Maldivian Discharge ED Provider: Ramiro Young Adult HPI <Ramiro Young MD - Last Filed: 07/06/25 07:05> General Chief complaint: Cough Stated complaint: back, neck pain Time Seen by Provider: 07/06/25 06:41 Mode of Arrival: Ambulatory Source of Information: Patient Description of Symptoms (Recalled from ER Triage Doc. by RN): pt reports back spasms that occur with coughing that began 3 days ago History of Present Illness HPI narrative: 64-year-old male with a history of hypertension, hyperlipidemia, hypothyroid presents to the ER with complaints of chronic low back pain radiating to the left hip that is exacerbated by his cough that he came down with 4 days ago. He states he had cough and congestion starting 4 days ago, his cough is productive. He denies fevers, chills, chest pain, or difficulty breathing. He denies any headache, dizziness, numbness, tingling, or weakness. He states the pain in his low back radiates down the back of the left leg which it has been doing for years. He states allegedly he is supposed to have work done on the left hip . He has not taken any medications for his cough but states he took 2 Tylenol and 2 ibuprofen 7 hours prior to arrival. He states he has chronic back pain that seems to just be worse when he has coughing fits and makes his low back spasm. He states he has had outpatient follow-up for this before. He used to take muscle relaxers but no longer has any of them. He has never tried lidocaine patches. He denies any new injuries or pain. He states this is simply slight worsening of his chronic symptoms. He has no numbness, tingling, or weakness. Denies bowel or bladder incontinence. No saddle anesthesia. Independently ambulatory into the ER. No other complaints or concerns. Related Data Home Medications ?Medication ?Instructions ?Recorded ?Confirmed fenofibrate 160 mg tablet 160 mg PO DAILY Cholesterol 04/12/18 10/15/21 levothyroxine 100 mcg tablet 100 mcg PO DAILY hypothyrodism 04/12/18 10/15/21 atorvastatin 20 mg tablet 20 mg PO HS Cholesterol 08/03/20 10/15/21 fluticasone propionate 50 2 spray NS DAILY Allergy symptoms 08/03/20 10/15/21 mcg/actuation nasal spray,suspension risperidone 2 mg tablet 2 mg PO HS Restless leg syndrome 08/03/20 10/15/21 ergocalciferol (vitamin D2) 1,250 50,000 unit PO WEEKLY Diet 08/18/20 10/15/21 mcg (50,000 unit) capsule supplement lisinopril 10 mg tablet 10 mg PO DAILY Hypertension 08/18/20 10/15/21 alendronate 70 mg tablet 70 mg PO WEEKLY Osteoporosis 08/19/20 10/15/21 icosapent ethyl 1 gram capsule 2 gm PO BID TRIGLYCERIDES 08/19/20 10/15/21 tizanidine 4 mg tablet 4 mg PO TIDP PRN MUSCLE SPASMS 08/19/20 10/15/21 famotidine 20 mg tablet 20 mg PO BID GERD 09/15/20 10/15/21 famotidine 20 mg tablet 20 mg PO DAILY GERD 09/20/21 10/15/21 Previous Rx's ?Medication ?Instructions ?Recorded docusate sodium 100 mg capsule 100 mg PO BIDP PRN Constipation 09/18/20 ondansetron 4 mg disintegrating 4 mg PO TIDP PRN Nausea 3 days #9 03/10/21 tablet tabs diclofenac sodium 1 % topical gel 2 g topical QID #100 grams 10/15/21 (Voltaren Arthritis Pain) amoxicillin 875 mg-potassium 1 tab PO Q12H #20 tabs 10/09/22 clavulanate 125 mg tablet guaifenesin 600 mg tablet, 600 mg PO BID PRN cough/congestion 10/09/22 extended release 12 hr (Mucinex) #20 tabs prednisone 10 mg tablet 10 mg PO BID 5 days #10 tabs 10/09/22 [id number] 5 ml PO Q6H PRN cold symptoms #118 07/06/25 2 mg-30 mg-10 mg/5 mL oral syrup mL (Bromfed DM) lidocaine 4 % topical patch 1 patch topical DAILY PRN pain #10 07/06/25 (Aspercreme (lidocaine)) ea methocarbamol 500 mg tablet 1,000 mg (2 x 500 mg) PO Q8H PRN 07/06/25 muscle pain and spasm #30 tabs Allergies Allergy/AdvReac Type Severity Reaction Status Date / Time milk (MILK) Allergy Unknown Verified 10/15/21 11:44 yeast, dried (YEAST) Allergy Unknown Verified 10/15/21 11:44 PFSH <Ramiro Young MD - Last Filed: 07/06/25 07:05> [facility] Disclaimer: The information contained in this section may have been updated after the patient was seen, as this information can be updated by other users. Medical History (Updated 07/06/25 @ 07:05 by Ramiro Young MD) Hyperlipidemia Hypertension Social History (Updated 05/15/23 @ 07:33 by Zeinab May RN) Smoking Status: Never smoker second hand exposure: No alcohol intake: never substance use type: marijuana counseling given: Yes counseling provided: provider counseling current occupational status: disabled Travel in the last 8 weeks?: Inside the [place] household members: friend(s) housing: house current occupational exposures/hazards: No caffeine: No Have you lived/traveled outside [place] in past 30 days?: No Contact w/someone who lives/traveled outside [place] past 30 days?: No Exposure to someone with infectious disease in past 14 days?: No Do you have a fever (greater than 100.4 F or 38 C)?: No Have you tested positive for COVID-19?: No Exposed to someone with COVID-19 in past 14 days?: No Do you have a sore throat?: No Do you have a cough?: Yes Do you have any weakness?: No Do you have any diarrhea?: No Are you experiencing any unusual bleeding?: No Do you have any muscle aches/pain?: No Do you have any abdominal pain?: No Are you experiencing loss of taste or smell?: No Other Medical History Have you received the Flu Vaccine for this season: No Have you received the Pneumonia Vaccine: Yes <Ramiro Young MD - Last Filed: 07/06/25 07:05> ROS Obtained: Yes Systems reviewed as appropriate & no additional complaints except as documented Per HPI Physical Exam <Ramiro Young MD - Last Filed: 07/06/25 07:05> General General appearance: alert and in no apparent distress Head Head exam: atraumatic and normocephalic Eye Eye exam: Present PERRL and EOMI ENT ENT exam: Present mucous membranes moist Neck Neck exam: Present normal inspection and full ROM Chest Chest inspection: Present symmetric chest wall rise; Absent tenderness Respiratory Respiratory exam: Absent normal lung sounds bilaterally (Rhonchi that moves with cough, saturating well on room air), respiratory distress, wheezes or stridor Cardiovascular Cardiovascular exam: Present regular rate and normal rhythm Abdominal Exam Abdominal exam: Present soft; Absent distention, tenderness, guarding or rebound Extremities Exam Extremities exam: Present full ROM and normal capillary refill; Absent edema Back Exam Back 1 view image:  1. Distribution of discomfort and tenderness with no bruising, deformity, crepitus, step-off, or other traumatic abnormality appreciated Neurological Exam Neurological exam: Present alert, oriented X3 and other (No saddle anesthesia); Absent motor sensory deficit Psychiatric Psychiatric exam: Present normal affect and normal mood Skin Skin exam: Present warm and dry Medical Decision Making <Ramiro Young MD - Last Filed: 07/06/25 07:05> Medical Records Medical records reviewed: Yes I reviewed the patient's medical records. Screening: Per USPSTF and CDC recommendations, given the prevalence of disease in our region, it is our hospital?s policy to screen for HIV and viral Hepatitis for all patients aged 18 and over and those with ongoing risk factors. [facility] Inquiry Pt receiving controlled substance: No Vital Signs: 07/06/25 06:38 Temperature 98.0 F Temperature Source Oral Pulse Rate [Right] 74 Respiratory Rate 20 Blood Pressure [Right Arm] 170/113 H Blood Pressure Mean [Right Arm] 132 02 Sat by Pulse Oximetry 99 Oxygen Delivery Method Room Air Orders (Tests/Meds): ED MEDICATIONS Discontinued Medications Generic Name Dose Route Start Last Admin Trade Name Freq PRN Reason Stop Dose Admin Ketorolac Tromethamine 15 mg 07/06/25 06:47 07/06/25 06:56 Ketorolac 15mg/Ml Vial IM 07/06/25 06:48 15 mg ONCE ONE Administration Lidocaine 1 each 07/06/25 06:47 07/06/25 06:56 Lidocaine 5% Transdermal Patch TD 07/06/25 06:48 1 each ONCE ONE Administration Tizanidine HCl 4 mg 07/06/25 06:48 07/06/25 06:59 Tizanidine 4mg Tablet PO 07/06/25 06:49 4 mg ONCE ONE Administration ORDERS Category Date Time Status CXR 2 view (NOT portable) [XR chest 2V] Stat Exams 07/06/25 06:47 Taken Medical Decision Narrative: In summary, this 64-year-old male with comorbidities described in the HPI presents to the emergency department today with chronic low back pain exacerbated by his current cough that started 4 days ago it is productive. On initial evaluation patient is hypertensive but otherwise hemodynamically stable, afebrile, GCS 15, independently ambulatory into the ER with normal gait. Full strength in bilateral lower extremities. He has tenderness of the left lower paraspinal area radiating behind the left hip and into the posterior lateral aspect of the left leg and distribution of the sciatic nerve with no evidence of traumatic injury on exam. No saddle anesthesia. Cardiopulmonary exam demonstrates rhonchi in bilateral lungs that moves with cough. Saturating well on room air, no respiratory distress. Differential diagnosis includes but is not limited to acute on chronic back pain, muscle spasm, sciatica, I had considered cauda equina but patient has no red flag symptoms such as sudden onset of pain, no weakness or paralysis, no saddle anesthesia, no bowel or bladder incontinence. I do not believe he requires low back imaging at this time given the chronic nature of his symptoms. He states his back pain simply is sharper when he coughs. 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 I considered pneumonia, bronchitis as well. Based on these concerns, I ordered chest x-ray. Patient is receiving Toradol, lidocaine patch, muscle relaxer. Patient handed off to Dr. Jauregui in stable condition pending chest x-ray and reassessment of pain. <Franc Jauregui MD - Last Filed: 07/06/25 07:13> Vital Signs: 07/06/25 06:38 Temperature 98.0 F Temperature Source Oral Pulse Rate [Right] 74 Respiratory Rate 20 Blood Pressure [Right Arm] 170/113 H Blood Pressure Mean [Right Arm] 132 02 Sat by Pulse Oximetry 99 Oxygen Delivery Method Room Air Orders (Tests/Meds): ED MEDICATIONS Discontinued Medications Generic Name Dose Route Start Last Admin Trade Name Freq PRN Reason Stop Dose Admin Ketorolac Tromethamine 15 mg 07/06/25 06:47 07/06/25 06:56 Ketorolac 15mg/Ml Vial IM 07/06/25 06:48 15 mg ONCE ONE Administration Lidocaine 1 each 07/06/25 06:47 07/06/25 06:56 Lidocaine 5% Transdermal Patch TD 07/06/25 06:48 1 each ONCE ONE Administration Tizanidine HCl 4 mg 07/06/25 06:48 07/06/25 06:59 Tizanidine 4mg Tablet PO 07/06/25 06:49 4 mg ONCE ONE Administration ORDERS Category Date Time Status CXR 2 view (NOT portable) [XR chest 2V] Stat Exams 07/06/25 06:47 Taken Medical Decision Narrative: In summary, this 64-year-old male with comorbidities described in the HPI presents to the emergency department today with chronic low back pain exacerbated by his current cough that started 4 days ago it is productive. On initial evaluation patient is hypertensive but otherwise hemodynamically stable, afebrile, GCS 15, independently ambulatory into the ER with normal gait. Full strength in bilateral lower extremities. He has tenderness of the left lower paraspinal area radiating behind the left hip and into the posterior lateral aspect of the left leg and distribution of the sciatic nerve with no evidence of traumatic injury on exam. No saddle anesthesia. Cardiopulmonary exam demonstrates rhonchi in bilateral lungs that moves with cough. Saturating well on room air, no respiratory distress. Differential diagnosis includes but is not limited to acute on chronic back pain, muscle spasm, sciatica, I had considered cauda equina but patient has no red flag symptoms such as sudden onset of pain, no weakness or paralysis, no saddle anesthesia, no bowel or bladder incontinence. I do not believe he requires low back imaging at this time given the chronic nature of his symptoms. He states his back pain simply is sharper when he coughs. 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 I considered pneumonia, bronchitis as well. Based on these concerns, I ordered chest x-ray. Patient is receiving Toradol, lidocaine patch, muscle relaxer. Patient handed off to Dr. Jauregui in stable condition pending chest x-ray and reassessment of pain. Franc Jauregui: Upon assumption of care patient is hemodynamically stable. Patient is saturating well on room air without significant respiratory distress. He is clear to auscultation for me. 5 out of 5 strength BLE he is able to ambulate he has acute on chronic back pain does not require any further investigation at this time advanced imaging was considered but will be deferred. Chest x-ray informally interpreted by me, chronic perihilar opacities no acute dense lobar opacities or large pneumothorax. Given this patient is appropriate for outpatient management at this time for presumed viral syndrome, flu test was considered but patient is outside window for Tamiflu will be deferred. Patiently discharged with lidocaine patches muscle relaxers and cough medicine and was given return precautions. Critical Care <Ramiro Young MD - Last Filed: 07/06/25 07:05> Critical Care Time Critical Care Time: No
[2025-07-06] MEDS: TIZANIDINE 4MG TABLET 4 MG PO (06:59)
[2025-07-06 07:28] VITALS: BP 140/78; PULSE 80; RESP 20; TEMP 36.7; O2SAT 98
== END 2025-07-06 07:29 | disposition home or self-care (01) ==
PROVIDERS: Emergency Provider Emergency Medicine; PCP Internal Medicine Adolescent Medicine
DX: M54.50 Low back pain, unspecified (principal); G89.29 Other chronic pain; R05.9 Cough, unspecified
CPT/HCPCS: 71046; 99283; J1885